=== PATIENT | female | born 1950 | race Caucasian/White ===

== ENCOUNTER 2020-03-21 08:23 | Outpatient (REF) | payer OTHER, SELFPAY ==
[2020-03-21 09:48] LABS: Alanine Aminotransferase 16 U/L (0-31); Albumin Level 4.3 g/dL (3.5-5.0); Alkaline Phosphatase 45 U/L (39-117); Anion Gap 12 (12-20); Aspartate Amino Transferase 31 U/L (5-31); Bilirubin Total 0.5 mg/dL (0.0-1.0); Blood Urea Nitrogen 16 mg/dL (9-16); Calcium 9.5 mg/dL (8.4-10.2); Carbon Dioxide 32 mmol/L (22-29); Chloride 100 mmol/L (96-108); Cholesterol 121 mg/dL; Estimated Glomerular Filt Rate 47; Glucose Fasting 135 mg/dL (60-99); HDL Cholesterol 38 mg/dL; LDL Cholesterol Calculated 66 mg/dl; Potassium 3.4 mmol/l (3.3-5.1); Sodium 141 mmol/L (135-145); Total Protein 7.4 g/dL (6.5-8.0); Triglycerides 88 mg/dL
[2020-03-21 11:06] LABS: Creatinine Urine 171.76 mg/dL; Microalbum/Creatinine Ratio Ur 13.9 ug/mg cr
== END 2020-03-21 08:24 | disposition home or self-care (01) ==
LOC: HO.LAB 08:23
PROVIDERS: PCP Internal Medicine; Visit Provider Internal Medicine
DX: E11.9 Type 2 diabetes mellitus without complications (principal); E78.00 Pure hypercholesterolemia, unspecified
CPT/HCPCS: 36415; 80053; 80061; 82043

== ENCOUNTER → 2020-04-04 09:16 | Outpatient (BNVA) | payer OTHER, SELFPAY | PROVIDERS: PCP Internal Medicine; Referring Provider Internal Medicine; Visit Provider Student in an Organized Health Care Education/Training Program | DX: M81.0 Age-related osteoporosis without current pathological fracture (principal); M89.49 Other hypertrophic osteoarthropathy, multiple sites | CPT/HCPCS: 96372; 99213 ==

== ENCOUNTER 2020-06-09 09:59 | Outpatient (REF) | payer OTHER, SELFPAY ==
[2020-06-10 09:46] LABS: BV Int Neg Control Negative (Negative); BV Int Pos Control Positive (Positive)
== END 2020-06-09 10:00 | disposition home or self-care (01) ==
LOC: HO.LAB 09:59
PROVIDERS: PCP Internal Medicine; Visit Provider Advanced Practice Midwife
DX: N89.8 Other specified noninflammatory disorders of vagina (principal); R21 Rash and other nonspecific skin eruption
CPT/HCPCS: 87480; 87510; 87660; 99212

== ENCOUNTER 2020-07-17 09:08 | Outpatient (REF) | payer OTHER, SELFPAY | END 2020-07-17 09:09 | disposition home or self-care (01) | LOC: HO.LAB 09:08 | PROVIDERS: PCP Internal Medicine; Visit Provider Internal Medicine | DX: Z20.822 Contact with and (suspected) exposure to COVID-19 (principal) | CPT/HCPCS: 36415; C9803; U0003 ==

== ENCOUNTER 2020-08-21 10:39 | Outpatient (REF) | payer MEDICARE, SELFPAY | END 2020-08-21 10:40 | disposition home or self-care (01) | LOC: HO.LAB 10:39 | PROVIDERS: Visit Provider Internal Medicine | DX: Z20.822 Contact with and (suspected) exposure to COVID-19 (principal) | CPT/HCPCS: 36415; C9803; U0003; U0005 ==

== ENCOUNTER → 2020-08-27 13:24 | Outpatient (BNVA) | payer MEDICARE, SELFPAY | PROVIDERS: PCP Internal Medicine; Visit Provider Nurse Practitioner | DX: K29.30 Chronic superficial gastritis without bleeding (principal); K21.9 Gastro-esophageal reflux disease without esophagitis; R19.7 Diarrhea, unspecified | CPT/HCPCS: Q3014 ==

== ENCOUNTER 2020-09-09 11:11 | Outpatient (REF) | payer MEDICARE, SELFPAY | END 2020-09-09 11:12 | disposition home or self-care (01) | LOC: HO.LAB 11:11 | PROVIDERS: Visit Provider Internal Medicine | DX: Z20.822 Contact with and (suspected) exposure to COVID-19 (principal) | CPT/HCPCS: 36415; C9803; U0003; U0005 ==

== ENCOUNTER → 2020-09-17 10:56 | Outpatient (BNVA) | payer MEDICARE, SELFPAY | PROVIDERS: PCP Internal Medicine; Visit Provider Nurse Practitioner | DX: R10.9 Unspecified abdominal pain (principal); R11.2 Nausea with vomiting, unspecified; K29.30 Chronic superficial gastritis without bleeding; K59.00 Constipation, unspecified; K21.9 Gastro-esophageal reflux disease without esophagitis | CPT/HCPCS: Q3014 ==

== ENCOUNTER 2020-10-01 09:13 | Outpatient (REF) | payer MEDICARE, SELFPAY ==
[2020-10-01 11:17] LABS: Alanine Aminotransferase 9 U/L (0-31); Alkaline Phosphatase 39 U/L (39-117); Anion Gap 10 (12-20); Aspartate Amino Transferase 27 U/L (5-31); Bilirubin Total 0.4 mg/dL (0.0-1.0); Blood Urea Nitrogen 13 mg/dL (9-16); Calcium 9.1 mg/dL (8.4-10.2); Carbon Dioxide 26 mmol/L (22-29); Chloride 108 mmol/L (96-108); Cholesterol 129 mg/dL; Estimated Glomerular Filt Rate > 60; Glucose Fasting 174 mg/dL (60-99); HDL Cholesterol 38 mg/dL; LDL Cholesterol Calculated 70 mg/dl; Sodium 140 mmol/L (135-145); Total Protein 6.8 g/dL (6.5-8.0); Triglycerides 107 mg/dL
[2020-10-01 12:25] LABS: Creatinine Urine 48.12 mg/dL; Microalbum/Creatinine Ratio Ur 49.8 ug/mg cr
[2020-10-02 09:57] LABS: NT-proBNP 186 pg/mL
[2020-10-04 14:22] LABS: Vitamin D 25-OH, D2 <4 ng/mL; Vitamin D 25-OH, D3 37 ng/mL; Vitamin D 25-OH, Total 37 ng/mL (30-100)
== END 2020-10-01 09:14 | disposition home or self-care (01) ==
LOC: HO.LAB 09:13
PROVIDERS: PCP Internal Medicine; Visit Provider Student in an Organized Health Care Education/Training Program
DX: M81.0 Age-related osteoporosis without current pathological fracture (principal); R60.0 Localized edema; E78.5 Hyperlipidemia, unspecified; E11.9 Type 2 diabetes mellitus without complications
CPT/HCPCS: 36415; 80053; 80061; 82043; 82306; 83880; 96402; 99212

== ENCOUNTER → 2020-10-17 12:57 | Outpatient (BNVA) | payer MEDICARE, SELFPAY | PROVIDERS: PCP Internal Medicine; Visit Provider Nurse Practitioner | DX: Z13.89 Encounter for screening for other disorder (principal) | CPT/HCPCS: Q3014 ==

== ENCOUNTER → 2020-10-21 14:29 | Outpatient (REF) | payer MEDICARE, SELFPAY ==
--- NOTE | 2020-10-21 14:33 | CA_ITS ---
Transthoracic Echocardiogram Patient (Last, First, Middle): Anat Trivedi, Gender: Female Date of : 1950 Age: 70 Procedure Date: 10/21/2020 Procedure Type: Transthoracic Echocardiogram Location: OP Height: 157.48 cm Weight: 56.7 kg BSA: 1.57 m2 Heart Rate: bpm BP: 116 / 74 mmHg Sleep Medicine Physician: Referring MD: Nita Jiménez MD Symptoms: R60.0 - Localized edema Study Quality: Good ECG Rhythm: Sinus Conclusions: - The left ventricular systolic function is normal. The visually estimated ejection fraction is between 60-65%. - There is mild mitral valve regurgitation. - There is mild to moderate tricuspid valve regurgitation. - Non specific liver density 2.3 x 2.4cm. Texture similar to rest of liver. Consider dedicated ultrasound. Findings Left Ventricle Normal left ventricular cavity size. There is normal left ventricular wall thickness. The left ventricular systolic function is normal. The visually estimated ejection fraction is between 60-65%. There is no evidence of regional wall motion abnormalities. Diastolic function is normal for age. Right Ventricle Normal right ventricular cavity size and systolic function. Atria The left atrium is normal in size. The right atrium is normal in size. Aortic Valve There is a normal trileaflet aortic valve. There is no aortic valve stenosis. There is no aortic valve regurgitation. Mitral Valve The mitral valve appears normal. There is mild mitral valve regurgitation. There is no mitral valve stenosis. Pulmonic Valve The pulmonic valve was not well visualized. Tricuspid Valve Normal tricuspid valve structure. There is mild to moderate tricuspid valve regurgitation. The right ventricular systolic pressure is 36 mmHg. Mild pulmonary hypertension is present. Great Vessels The aortic annulus, sinuses of valsalva, and asc aorta are normal in size. Venous The inferior vena cava is normal in size and collapses greater than 50% with inspiration. Pericardium/Pleural There is no evidence of pericardial effusion. Non specific liver density 2.3 x 2.4cm. Texture similar to rest of liver. Consider dedicated ultrasound. Prior Study Comparison Changes noted compared to prior study dated: 03/05/2019. See comments on liver. Measurements 2D Linear Measurements RVIDd: 3.34 RVIDd Index: 2.13 IVSd: 0.83 0.6-0.9/0.6-1.0 cm LVIDd: 3.65 3.9-5.3/4.2-5.9 cm LVIDd Index: 2.32 2.4-3.2/2.2-3.1 cm/m2 LVIDs: 2.53 2.0-3.6 cm LVPWd: 0.89 0.7-1.1 cm Ao Root: 2.50 2.1-3.5 cm LA Diam: 3.30 2.7-3.8/3.0-4.0 cm LAIDs Index: 2.10 1.5-2.3 cm/m2 LV Mass: 110.75 67-162/88-224 g LV Mass Index: 70.54 43-95/49-115 g/m2 LVOT Diam: 2.00 3.0+(-)1.3 cm 2D Systolic Function EF 4C: 76.80 >55% EF 2C: 78.30 >55% EF BiP: 76.50 >55% Mitral Valve MV Pk E: 1.05 MV PK A: 1.12 MV Decel Time: 204.00 E/A: 0.90 E'Lateral: 12.50 E'Medial: 8.22 E/E' Med: 12.80 E/E' Lat: 8.40 MR Vol - PW Dopp: 13.02 MR VTI: 1.86 MR ERO: 7.00 MR Alias Moom: 0.38 MR RAD: 0.40 Aortic Valve AoV Pk Momo: 1.62 AoV Mn Momo: 1.08 AoV VTI: 0.32 AoV Pk Grad: 10.00 Aov Mn Grad: 6.00 JOHN PAUL Cont.VTI: 2.45 LVOT LVOT Pk Momo: 1.24 LVOT Mn Momo: 0.83 LVOT VTI: 0.25 LVOT Pk Grad: 6.00 LVOT Mn Grad: 3.00 LVOT Diam: 2.00 LVOT Area: 3.14 Diastolic Function MV Pk E: 1.05 MV Pk A: 1.12 E/A: 0.90 E'Medial: 8.22 E/E' Med: 12.80 E' Laterial: 12.50 E/E' Lat: 8.40 Tricuspid Valve TR Pk Momo: 3.00 TR Pk Grad: 36.00 RVSP: 36.00 Great Vessels Aorta Ao Root-2D: 2.50 2.0-3.7 cm Ao Asc: 2.80 2.1-3.4 cm Ao Arch: 2.70 Updated in Other Vendor System with Status of Final Quentin Garcia MD electronically signed on 10/23/2020 2:54:24 PM with status of Final
== END ==
LOC: HO.CARD 14:29
PROVIDERS: PCP Internal Medicine; Visit Provider Internal Medicine
DX: R60.0 Localized edema (principal)
CPT/HCPCS: 93306

== ENCOUNTER → 2020-12-02 09:59 | Outpatient (BNVA) | payer MEDICARE, SELFPAY | PROVIDERS: Visit Provider Nurse Practitioner | CPT/HCPCS: Q3014 ==

== ENCOUNTER 2020-12-09 10:35 | Outpatient (REF) | payer MEDICARE, SELFPAY ==
[2020-12-09 12:27] LABS: Alanine Aminotransferase 7 U/L (0-31); Albumin Level 4.4 g/dL (3.5-5.0); Alkaline Phosphatase 45 U/L (39-117); Anion Gap 10 (12-20); Aspartate Amino Transferase 37 U/L (5-31); Bilirubin Total 0.3 mg/dL (0.0-1.0); Blood Urea Nitrogen 19 mg/dL (9-16); Calcium 9.8 mg/dL (8.4-10.2); Carbon Dioxide 33 mmol/L (22-29); Chloride 100 mmol/L (96-108); Estimated Glomerular Filt Rate 54; Glucose Random 152 mg/dL (60-115); Potassium 3.9 mmol/L (3.3-5.1); Sodium 139 mmol/L (135-145); Total Protein 7.5 g/dL (6.5-8.0)
[2020-12-09 12:29] LABS: Cholesterol 127 mg/dL; HDL Cholesterol 48 mg/dL; LDL Cholesterol Calculated 55 mg/dl; Triglycerides 123 mg/dL
== END 2020-12-09 10:36 | disposition home or self-care (01) ==
LOC: HO.LAB 10:35
PROVIDERS: PCP Internal Medicine; Visit Provider Nurse Practitioner
DX: M81.0 Age-related osteoporosis without current pathological fracture (principal); E11.9 Type 2 diabetes mellitus without complications; E78.5 Hyperlipidemia, unspecified
CPT/HCPCS: 36415; 80053; 80061

== ENCOUNTER 2020-12-11 07:36 | Outpatient (REF) | payer MEDICARE, SELFPAY ==
--- NOTE | ~2020-12-11 | CT_ITS ---
EXAMINATION: CT ABDOMEN AND PELVIS WITH CONTRAST CLINICAL INFORMATION: Nausea and vomiting COMPARISON: Previous abdominal ultrasound December 2016 TECHNIQUE: Multidetector volumetric images were obtained from the superior aspect of the liver through the pubic symphysis following administration 85 mL of Omnipaque 350 intravenous contrast. Sagittal and coronal reformatted images were obtained on the technologist's workstation. Oral contrast: Yes This CT examination was performed using dose optimization techniques as appropriate, variously including the following: *Automated exposure control *Adjustment of mA and/or kV according to patient size (this includes techniques or standardized protocols for targeted exams where dose is matched to indication/reason for exam; i.e. extremities or head) *Use of iterative reconstruction technique DLP: 333 mGy-cm FINDINGS: LUNG BASES: The visualized lung bases are unremarkable. LIVER, GALLBLADDER, AND BILIARY TREE: The liver is normal in size, shape, and attenuation. No focal hepatic lesion or biliary ductal dilatation is present. The gallbladder is unremarkable with no evidence of radiopaque gallstones, gallbladder wall thickening, or obvious pericholecystic inflammatory changes. PANCREAS: Unremarkable. SPLEEN: Unremarkable. ADRENAL GLANDS: Unremarkable. KIDNEYS AND URETERS: There is question of a low-attenuation in the cortex of the lower pole the left kidney. This area measures approximately 1 cm. Possible infection/pyelonephritis should be considered. Differential would include infarct and mass. Right kidney is normal appearing. BLADDER: Unremarkable. GASTROINTESTINAL TRACT: The small and large bowel are unremarkable. The appendix is unremarkable. The stomach is slightly distended and filled with oral contrast and food debris. ABDOMINAL WALL: No significant hernia is appreciated. LYMPH NODES: Normal. VASCULAR: Unremarkable. PELVIC VISCERA: Unremarkable. OSSEOUS STRUCTURES: Unremarkable. CT/CT abdomen pelvis w con IMPRESSION: Question 1 cm low-attenuation area in the lower pole of the left kidney. Possible infection/pyelonephritis should be considered. Differential would include infarct and mass. Correlation with urinalysis and urine culture and imaging follow-up recommended.
[2020-12-11] MEDS: iohexoL 350 MG/ML 100 ML INFUS..BTL IV (10:34)
== END 2020-12-11 07:37 | disposition home or self-care (01) ==
LOC: HO.CT 07:36
PROVIDERS: Visit Provider Nurse Practitioner
DX: R10.9 Unspecified abdominal pain (principal); R11.2 Nausea with vomiting, unspecified; R63.4 Abnormal weight loss; R60.0 Localized edema
CPT/HCPCS: 74177; Q9967

== ENCOUNTER 2020-12-16 08:01 | Outpatient (REF) | payer MEDICARE, SELFPAY ==
[2020-12-16 08:44] LABS: MANUAL DIFF FLAG NO
[2020-12-16 08:47] LABS: Basophils Absolute Auto 0.1 X10*3/uL (0.0-0.2); Basophils Percent Auto 0.6 % (0-2); Eosinophils Absolute Auto 0.7 X10*3/uL (0.0-0.4); Eosinophils Percent Auto 9.1 % (0-4); Hematocrit 39.3 % (37-47); Hemoglobin 12.7 g/dl (12.0-16.0); Imm Gran Abs Auto 0.02 X10*3/uL (0.00-0.03); Imm Gran Pct Auto 0.2 % (0.0-0.4); Lymphocytes Absolute Auto 1.9 X10*3/uL (1.2-4.9); Lymphocytes Percent Auto 23.5 % (20-40); Mean Corpuscular HGB Conc 32.3 g/dl (31.0-35.0); Mean Corpuscular Hemoglobin 27.7 pg (27.0-33.0); Mean Corpuscular Volume 85.8 fL (80-98); Mean Platelet Volume 11.9 fL (9.4-12.3); Monocytes Absolute Auto 0.4 X10*3/uL (0.1-1.2); Monocytes Percent Auto 5.2 % (2-11); Neutrophils Absolute Auto 4.9 X10*3/uL (2.0-8.3); Neutrophils Percent Auto 61.4 % (45-73); Platelet Count 203 X10*3/uL (160-400); Red Blood Count 4.58 X10*6/uL (4.20-5.50); Red Cell Distribution Width 13.6 % (11.0-16.0)
[2020-12-16 09:03] LABS: Glucose Urine UA NEG (NEG); Leukocyte Esterase Urine 1+ (NEG); Nitrite Urine POS (NEG); UACC Culture Trigger YES; Urine Blood NEG (NEG); Urine Ketones NEG (NEG); Urine Protein NEG (NEG-TRACE)
[2020-12-16 09:05] LABS: Appearance Urine HAZY; Color Urine YELLOW
[2020-12-16 09:13] LABS: Bacteria Urine 3+ /LPF; RBC Urine 0 /HPF (0); Squamous Epithelial Cell Urine 1+ /LPF
[2020-12-16 09:18] LABS: Blood Urea Nitrogen 22 mg/dL (9-16); Estimated Glomerular Filt Rate 52
== END 2020-12-16 08:02 | disposition home or self-care (01) ==
LOC: HO.LAB 08:01
PROVIDERS: PCP Internal Medicine; Visit Provider Nurse Practitioner
DX: R10.9 Unspecified abdominal pain (principal); R11.2 Nausea with vomiting, unspecified; R60.0 Localized edema; R63.4 Abnormal weight loss
CPT/HCPCS: 36415; 81001; 81003; 82565; 84520; 85025; 87086; 87088; 87186

== ENCOUNTER 2020-12-24 08:01 | Outpatient (REF) | payer MEDICARE, SELFPAY ==
[2020-12-24 09:27] LABS: Alanine Aminotransferase 25 U/L (0-31); Albumin Level 4.3 g/dL (3.5-5.0); Alkaline Phosphatase 36 U/L (39-117); Anion Gap 16 (12-20); Aspartate Amino Transferase 33 U/L (5-31); Bilirubin Total 0.6 mg/dL (0.0-1.0); Blood Urea Nitrogen 18 mg/dL (9-16); Calcium 9.8 mg/dL (8.4-10.2); Carbon Dioxide 29 mmol/L (22-29); Chloride 102 mmol/L (96-108); Estimated Glomerular Filt Rate 47; Glucose Fasting 133 mg/dL (60-99); Potassium 3.6 mmol/L (3.3-5.1); Sodium 143 mmol/L (135-145); Total Protein 7.5 g/dL (6.5-8.0)
== END 2020-12-24 08:02 | disposition home or self-care (01) ==
LOC: HO.LAB 08:01
PROVIDERS: PCP Internal Medicine; Visit Provider Internal Medicine
DX: E11.9 Type 2 diabetes mellitus without complications (principal)
CPT/HCPCS: 36415; 80053

== ENCOUNTER → 2021-01-01 12:49 | Outpatient (BNVA) | payer MEDICARE, SELFPAY | PROVIDERS: PCP Internal Medicine; Referring Provider Internal Medicine; Visit Provider Nurse Practitioner | DX: R63.4 Abnormal weight loss (principal); R10.9 Unspecified abdominal pain; R11.2 Nausea with vomiting, unspecified; K29.30 Chronic superficial gastritis without bleeding; R19.7 Diarrhea, unspecified; G20 Parkinson's disease; K59.00 Constipation, unspecified; K21.9 Gastro-esophageal reflux disease without esophagitis; N12 Tubulo-interstitial nephritis, not specified as acute or chronic; K31.84 Gastroparesis | CPT/HCPCS: 99212 ==

== ENCOUNTER 2021-01-06 11:46 | Outpatient (REF) | payer MEDICARE, SELFPAY ==
[2021-01-06 12:53] LABS: Glucose Urine UA NEG (NEG); Leukocyte Esterase Urine NEG (NEG); Nitrite Urine NEG (NEG); Specific Gravity - Urine 1.015 (1.005-1.025); Urine Blood NEG (NEG); Urine Ketones NEG (NEG); Urine Protein NEG (NEG-TRACE)
[2021-01-06 12:59] LABS: Appearance Urine CLEAR; Color Urine YELLOW
[2021-01-06 13:11] LABS: Creatinine Urine 137.96 mg/dL; Microalbum/Creatinine Ratio Ur 10.1 ug/mg cr
[2021-01-06 13:15] LABS: Cholesterol 125 mg/dL; HDL Cholesterol 41 mg/dL; LDL Cholesterol Calculated 69 mg/dl; Triglycerides 76 mg/dL
[2021-01-10 13:37] LABS: Vitamin D 25-OH, D2 <4 ng/mL; Vitamin D 25-OH, D3 49 ng/mL; Vitamin D 25-OH, Total 49 ng/mL (30-100)
== END 2021-01-06 11:47 | disposition home or self-care (01) ==
LOC: HO.LAB 11:46
PROVIDERS: PCP Internal Medicine; Visit Provider Nurse Practitioner
DX: E55.9 Vitamin D deficiency, unspecified (principal); N12 Tubulo-interstitial nephritis, not specified as acute or chronic; E11.9 Type 2 diabetes mellitus without complications; E78.5 Hyperlipidemia, unspecified
CPT/HCPCS: 36415; 80061; 81003; 82043; 82306

== ENCOUNTER 2021-01-22 16:25 | Outpatient (REF) | payer MEDICARE, SELFPAY ==
--- NOTE | ~2021-01-22 | MR_ITS ---
EXAMINATION: BRAIN MRI WITHOUT CONTRAST CLINICAL INFORMATION: Tremor. COMPARISON: Brain MRI 02/15/2019. TECHNIQUE: Multiplanar MR imaging of the brain was performed without contrast FINDINGS: There are scattered nonspecific foci of T2 FLAIR signal hyperintensity within the periventricular white matter that most likely represent a chronic manifestation of small vessel ischemia. No acute territorial infarct. No pathological magnetic susceptibility artifact. Intracranial vascular flow voids are maintained. There is no intracranial mass effect or midline shift. No abnormal extra-axial collection. Lateral and third ventricles are normal. No hydrocephalus. Midline structures including the cervicomedullary junction are normal. No acute bone marrow signal changes. There is no mastoid middle ear effusion. No active paranasal sinus disease. Globes and orbits are symmetric. MR/MR head/brain wo con IMPRESSION: There are scattered chronic small vessel ischemic changes within the periventricular white matter. Otherwise unremarkable examination. No evidence of acute territorial infarct or hemorrhage.
== END 2021-01-22 16:26 | disposition home or self-care (01) ==
LOC: HO.MRI 16:25
PROVIDERS: PCP Internal Medicine; Visit Provider Internal Medicine
DX: R25.1 Tremor, unspecified (principal)
CPT/HCPCS: 70551

== ENCOUNTER 2021-02-20 12:58 | Outpatient (REF) | payer MEDICARE, SELFPAY ==
--- NOTE | ~2021-02-20 | MM_ITS ---
EXAMINATION: BONE DENSITOMETRY CLINICAL INDICATION: Age-related osteoporosis without current pathological fracture. COMPARISON: Previous BD dated 10/17/2018 and baseline BD dated 01/25/2007. TECHNIQUE: Using a [employer] DXA System (software version: 13.1) manufactured by [employer], dual-energy x-ray absorptiometry was performed of the lumbar spine and left hip. The images are of good technical quality. Summary results are attached. FINDINGS: AP SPINE L1-L4: Current: BMD 0.804 g/cm2, Z-score -1.0, T-score -3.1, osteoporosis, 0.5% decrease from previous, 8.5% decrease from baseline (<5% change is not significant). Prior: BMD 0.808 g/cm2. Baseline: BMD 0.879 g/cm2. LEFT FEMUR, NECK: Current: BMD 0.696 g/cm2, Z-score -0.4, T-score -2.5, osteoporosis. Prior: BMD 0.672 g/cm2. Baseline: BMD 0.727 g/cm2. LEFT FEMUR, TOTAL: Current: BMD 0.740 g/cm2, Z-score -0.2, T-score -2.1, osteopenia, 0.3% decrease from previous, 7.0% decrease from baseline (<5% change is not significant). Prior: BMD 0.742 g/cm2. Baseline: BMD 0.796 g/cm2. IDENTIFIED RISK FACTORS: Osteoporosis, history of fracture (adult). Early menopause, secondary osteoporosis, thiazide. HISTORY OF FRACTURE: Elbow. MEDICATIONS: Calcium supplements or multivitamin, vitamin D, Prolia. MM/XR DEXA axial skeleton IMPRESSION: 1. DIAGNOSIS: Osteoporosis based on the lowest T-score value of -3.1 in the lumbar spine applying World Health Organization criteria. 2. 10-YEAR FRACTURE RISK PREDICTION, FRAX: Major osteoporotic fracture (clinical spine, forearm, hip or shoulder) 12.6%. Hip fracture 3.3%. 3. Treatment Recommendations: NOF guidelines recommend consideration for treatment in postmenopausal women and men age 50 and older presenting with the following: -A hip or vertebral (clinical or morphometric) fracture. -T-score less than or equal to -2.5 at the femoral neck or spine after appropriate evaluation to exclude secondary causes. -Low bone mass at the hip or spine and a 10-year fracture probability by FRAX of greater than or equal to 3% for hip fracture or greater than or equal to 20% for major osteoporotic fracture based on the [place] adapted WHO algorithm. 4. Other Recommendations: All treatment decisions require clinical judgment and consideration of individual patient factors, including patient preferences, comorbidities, previous drug use, risk factors not captured in the FRAX model (e.g. frailty, falls, vitamin D deficiency, increased bone turnover, interval significant decline in bone density) and possible under or overestimation of fracture risk by FRAX. Additional medical evaluation for secondary cause of low bone mineral density may be appropriate. FUTURE SCAN RECOMMENDATION: People with diagnosed cases of osteoporosis or at high risk for fracture should have regular bone mineral density tests. For patients eligible for Medicare, routine testing is allowed once every 2 years. The testing frequency can be increased to one year for patients who have rapidly progressing disease, those who are receiving or discontinuing medical therapy to restore bone mass, or have additional risk factors.
--- NOTE | ~2021-02-20 | MM_ITS ---
EXAMINATION: MM SCREENING DIGITAL BREAST TOMOSYNTHESIS, BILATERAL CLINICAL INFORMATION: Screening. Asymptomatic. The lifetime risk of breast cancer based on the Tyrer-Cuzick Model is 4%. COMPARISON: Mammography: 12/04/2019, 12/28/2018, 12/26/2017; targeted right breast ultrasound 12/04/2019 TECHNIQUE: Digital breast tomosynthesis is performed in both the craniocaudal and mediolateral oblique views along with computer-aided detection (CAD). Synthesized 2D images are generated from the tomosynthesis. FINDINGS: There are scattered areas of fibroglandular density (ACR BI-RADS breast composition Category b). There are no significant masses, abnormal calcifications, or other abnormalities. Parenchymal pattern is similar to prior studies. There is no developing density. The axilla and skin contours are unremarkable. Biopsy clip marker again noted central mid 12:00 right breast. MM/MM tomosynthesis screening BI IMPRESSION: No mammographic evidence of malignancy. ASSESSMENT: BI-RADS 1: Negative RECOMMENDATION: Routine annual mammography screening. This patient's information was entered into a reminder system with a target due date for their next mammogram.
== END 2021-02-20 12:59 | disposition home or self-care (01) ==
LOC: HO.MAMMO 12:58
PROVIDERS: PCP Internal Medicine; Visit Provider Student in an Organized Health Care Education/Training Program
DX: Z12.31 Encounter for screening mammogram for malignant neoplasm of breast (principal); M81.0 Age-related osteoporosis without current pathological fracture; Z78.0 Asymptomatic menopausal state
CPT/HCPCS: 77063; 77067; 77080

== ENCOUNTER → 2021-03-06 08:34 | Outpatient (BNVA) | payer MEDICARE, SELFPAY | PROVIDERS: PCP Internal Medicine; Visit Provider Nurse Practitioner ==

== ENCOUNTER → 2021-04-02 10:15 | Outpatient (BNVA) | payer MEDICARE, SELFPAY | PROVIDERS: PCP Internal Medicine; Visit Provider Nurse Practitioner Family | DX: M81.0 Age-related osteoporosis without current pathological fracture (principal); M89.49 Other hypertrophic osteoarthropathy, multiple sites | CPT/HCPCS: 96372; 99212 ==

== ENCOUNTER 2021-04-14 08:21 | Outpatient (REF) | payer MEDICARE, SELFPAY ==
[2021-04-14 09:49] LABS: Alanine Aminotransferase 12 U/L (0-31); Albumin Level 4.2 g/dL (3.5-5.0); Alkaline Phosphatase 37 U/L (39-117); Anion Gap 13 (12-20); Aspartate Amino Transferase 27 U/L (5-31); Bilirubin Total 0.8 mg/dL (0.0-1.0); Blood Urea Nitrogen 13 mg/dL (9-16); Calcium 9.2 mg/dL (8.4-10.2); Carbon Dioxide 29 mmol/L (22-29); Chloride 103 mmol/L (96-108); Estimated Glomerular Filt Rate 53; Glucose Random 97 mg/dL (60-115); Sodium 141 mmol/L (135-145); Total Protein 7.3 g/dL (6.5-8.0)
[2021-04-21 14:31] LABS: Vitamin D 25-OH, D2 <4 ng/mL; Vitamin D 25-OH, D3 42 ng/mL; Vitamin D 25-OH, Total 42 ng/mL (30-100)
== END 2021-04-14 08:22 | disposition home or self-care (01) ==
LOC: HO.LAB 08:21
PROVIDERS: PCP Internal Medicine; Visit Provider Nurse Practitioner Family
DX: M81.0 Age-related osteoporosis without current pathological fracture (principal)
CPT/HCPCS: 36415; 80053; 82306

== ENCOUNTER 2021-09-29 09:11 | Outpatient (REF) | payer OTHER, SELFPAY ==
[2021-09-29 11:14] LABS: Alanine Aminotransferase 8 U/L (0-31); Albumin Level 4.2 g/dL (3.5-5.0); Alkaline Phosphatase 40 U/L (39-117); Anion Gap 15 (12-20); Aspartate Amino Transferase 26 U/L (5-31); Bilirubin Total 0.5 mg/dL (0.0-1.0); Blood Urea Nitrogen 15 mg/dL (9-16); Carbon Dioxide 28 mmol/L (22-29); Chloride 105 mmol/L (96-108); Estimated Glomerular Filt Rate 55; Glucose Random 113 mg/dL (60-115); Potassium 4.7 mmol/L (3.3-5.1); Sodium 143 mmol/L (135-145); Total Protein 7.4 g/dL (6.5-8.0)
[2021-09-29 11:34] LABS: Vitamin D 25-OH Total 47.9 ng/mL (>30)
== END 2021-09-29 09:12 | disposition home or self-care (01) ==
LOC: HO.LAB 09:11
PROVIDERS: PCP Internal Medicine; Visit Provider Nurse Practitioner Family
DX: M81.0 Age-related osteoporosis without current pathological fracture (principal)
CPT/HCPCS: 36415; 80053; 82306

== ENCOUNTER → 2021-11-17 10:55 | Outpatient (BNVA) | payer OTHER, SELFPAY | PROVIDERS: PCP Internal Medicine; Visit Provider Nurse Practitioner Family | DX: M81.0 Age-related osteoporosis without current pathological fracture (principal); M89.49 Other hypertrophic osteoarthropathy, multiple sites; R07.9 Chest pain, unspecified | CPT/HCPCS: 99212 ==

== ENCOUNTER 2021-11-18 09:18 | Emergency (ER) | payer OTHER, SELFPAY ==
--- NOTE | ~2021-11-18 | XR_ITS ---
EXAMINATION: XR CHEST CLINICAL INFORMATION: Chest pain. COMPARISON: None TECHNIQUE: Frontal view of the chest was obtained. FINDINGS: The lungs are clear. The cardiomediastinal silhouette is normal in size. There is no pleural effusion or pneumothorax. No acute osseous abnormality. XR/XR chest 1V IMPRESSION: No acute cardiopulmonary findings.
--- NOTE | 2021-11-18 09:33 | ECG_ITS ---
Test Reason : CP Blood Pressure : / mmHG Vent. Rate : 067 BPM Atrial Rate : 067 BPM P-R Int : 156 ms QRS Dur : 062 ms QT Int : 376 ms P-R-T Axes : 000 -25 -09 degrees QTc Int : 397 ms Poor data quality Normal sinus rhythm Cannot rule out Anterior infarct , age undetermined Abnormal ECG When compared with ECG of 25-JAN-2018 09:00, T wave amplitude has decreased in Anterolateral leads Referred By: Generic ED Physician Electronically Signed By:CHESTER GUTIERRES MD
[2021-11-18 09:44] VITALS: BP 140/52; PULSE 61; RESP 16; TEMP 36.9; O2SAT 98; BMI 24.2
[2021-11-18 09:56] LABS: MANUAL DIFF FLAG NO
[2021-11-18 09:57] LABS: Basophils Percent Auto 0.5 % (0-2); Eosinophils Absolute Auto 0.6 X10*3/uL (0.0-0.4); Eosinophils Percent Auto 9.7 % (0-4); Hematocrit 37.8 % (37.0-47.0); Hemoglobin 12.3 g/dl (12.0-16.0); Imm Gran Abs Auto 0.02 X10*3/uL (0.00-0.03); Imm Gran Pct Auto 0.3 % (0.0-0.4); Lymphocytes Absolute Auto 1.5 X10*3/uL (1.2-4.9); Lymphocytes Percent Auto 25.1 % (20-40); Mean Corpuscular HGB Conc 32.5 g/dl (31.0-35.0); Mean Corpuscular Hemoglobin 28.5 pg (27.0-33.0); Mean Corpuscular Volume 87.7 fL (80.0-98.0); Monocytes Absolute Auto 0.3 X10*3/uL (0.1-1.2); Monocytes Percent Auto 5.7 % (2-11); Neutrophils Absolute Auto 3.4 x10*3/uL (2.0-8.3); Neutrophils Percent Auto 58.7 % (45-73); Platelet Count 161 X10*3/uL (160-400); Red Blood Count 4.31 X10*6/uL (4.20-5.50); White Blood Count 5.8 X10*3/uL (4.8-10.8)
[2021-11-18 10:15] LABS: Anion Gap 12 (12-20); Blood Urea Nitrogen 16 mg/dL (9-16); Calcium 9.8 mg/dL (8.4-10.2); Carbon Dioxide 26 mmol/L (22-29); Chloride 106 mmol/L (96-108); Creatinine Clr Calc Pharmacy 37.3; Estimated Glomerular Filt Rate 50; Glucose Random 159 mg/dL (60-115); Potassium 4.3 mmol/L (3.3-5.1); Sodium 140 mmol/L (135-145)
[2021-11-18 10:20] LABS: Troponin-I High Sensitivity < 3.5 ng/L (<3.5-17.0)
[2021-11-18 13:12] VITALS: BP 150/76; PULSE 77; RESP 25; TEMP 37.1; O2SAT 96
--- NOTE | 2021-11-18 13:16 | ED_ITS ---
HPI - Chest Pain General Chief Complaint: Chest Pain Stated Complaint: chest pain Time Seen by Provider: 11/18/21 13:16 Source: patient Mode of arrival: ambulatory Limitations: no limitations History of Present Illness HPI narrative: chest pain last night. Stress test one year ago which was fine. has had multiple visits for chest pain which has been negative. patient had left sided chest pain that went to her jaw for 30 minutes last night. MD complaint: chest pain Onset (ago): hour(s) Timing of current episode: episodic Prior episodes: Yes Onset: during rest Pain location: left chest Pain radiation: left arm and neck Severity: mild Quality: tightness Related Data Home Medications Medication Instructions Recorded Confirmed acetaminophen 650 mg 650 mg PO Q8H 04/04/20 05/05/21 tablet,extended release cetirizine 10 mg tablet (Zyrtec) 10 mg PO DAILY PRN tab 04/04/20 05/05/21 Previous Rx's Medication Instructions Recorded calcium carbonate 500 mg-vitamin 1 tab PO .twice a day 90 Days #180 07/03/20 D3 15 mcg (600 unit) tablet tab blood sugar diagnostic (FreeStyle #50 ea 11/10/20 Test) hydrocortisone 1 % topical 1 appl TOPICAL BID PRN 30 Days 11/10/20 ointment (Anti-Itch #28.35 g (hydrocortisone)) metoclopramide HCl 5 mg tablet 5 mg PO QIDACHS 30 Days #120 tab 01/01/21 (Reglan) aspirin 81 mg tablet,delayed 81 mg PO DAILY #90 tab 01/07/21 release blood pressure monitor #1 ea 05/05/21 famotidine 40 mg tablet (Pepcid) 40 mg PO BID 30 Days #60 tab 09/11/21 metformin 500 mg tablet,extended 2,000 mg PO DAILY #360 tab 09/18/21 release 24 hr ezetimibe 10 mg tablet 10 mg PO DAILY 90 Days #90 tab 09/20/21 denosumab 60 mg/mL subcutaneous 60 mg SUBCUT [id number] #1 ml 09/24/21 syringe (Prolia) escitalopram oxalate 5 mg tablet 5 mg PO DAILY 90 Days #90 tab 09/24/21 carbidopa 25 mg-levodopa 100 mg 1 tab PO TID 30 Days #90 tab 10/30/21 tablet Allergies Allergy/AdvReac Type Severity Reaction Status Date / Time amlodipine Allergy Intermediate leg edema Verified 11/17/21 11:29 aspirin [ASPIRIN] Allergy Intermediate GERD Verified 11/17/21 11:29 gabapentin Allergy Intermediate rash Verified 11/17/21 11:29 lisinopril Allergy Intermediate angioedema Verified 11/17/21 11:29 naproxen [From NAPROSYN] Allergy Intermediate RASH/DIZZY Verified 11/17/21 11:29 omeprazole Allergy Intermediate tremors Verified 11/17/21 11:29 canagliflozin [Invokana] AdvReac Intermediate rash Verified 11/17/21 11:29 glipizide AdvReac Intermediate hypoglycemi Verified 11/17/21 11:29 a Review of Systems Constitutional: Constitutional: Reports no additional constitutional complaints Eyes: Eyes: Reports no additional eye complaints ENT: Denies dizziness Cardiovascular: Cardiovascular: Reports no additional cardiovascular complaints Respiratory: Respiratory: Reports as per HPI Gastrointestinal: Gastrointestinal: Reports no additional gastrointestinal com plaints Genitourinary: Genitourinary: Reports no additional female genitourinary complaints Musculoskeletal: Musculoskeletal: Reports no additional musculoskeletal complaints Integumentary/Breasts: Skin/Breast: Denies rash Neurologic: Reports system reviewed and no additional complaints, except as documented, Denies dizziness and Denies Sensory deficit (Neuro) Psychiatric: Psychiatric: Denies anxiety PMFSH Past Medical History Medical History Abdominal cramping Cataracts, bilateral Constipation Depression Diabetes mellitus Essential hypertension GERD (gastroesophageal reflux disease) Leg edema Osteoarthritis Osteoporosis Parkinsons Pure hypercholesterolemia Tremors of nervous system Vaginal pruritus Surgical History H/O colonoscopy Family History Family History Father Leukemia Mother Chronic mental illness Alzheimers disease Sister Breast cancer Sister Leukemia Sister Esophageal cancer Maternal Grandmother Stomach cancer Family/Other Chronic mental illness Maternal Grandfather Myocardial infarction Sister Alzheimers disease Social History Social History Household Members: None Housing: Apartment Alcohol intake: never Patient Tobacco Use Status: Never used Tobacco e-Cigarette/Vaping Use: Never Used Second Hand Smoke Exposure: No Advance Directives: Yes Advance Directives on File: Yes Advance Directives Date on File: 09/23/20 service: No Current occupational status: disabled Physical Exam Vital Signs: Vital Signs: Last Vital Signs Temp 98.7 F 11/18/21 13:12 Pulse 77 11/18/21 13:12 Resp 25 H 11/18/21 13:12 BP 150/76 H 11/18/21 13:12 Pulse Ox 96 11/18/21 13:12 BMI result Body Mass Index 24.2 Const: Other: parkinsons tremor General: healthy appearing Nutritional Appearance: average body habitus Orientation/consciousness: oriented to person and patient oriented x3 Limitations: no limitations HEENT: Head: Yes normal to inspection Ears: external ears normal General nose exam: Normal external nose present Mouth: Normal oral and palatal mucosa present and oropharynx normal Throat: Yes posterior oropharynx normal Eyes: General: appearance normal, both eyes and all related structures Neck: Other: supple Neck: Yes normal visual inspection Chest: Chest palpation & inspection: normal inspection of the chest Resp: Auscultation: clear to auscultation bilaterally Cardio: Jugular venous distension: no JVD Rate: regular rate Rhythm: regular rhythm Heart sounds: S1 normal heart sound present and S2 normal heart sound present GI: Inspection: Yes normal to inspection Palpation (GI): Soft to palpation, nontender and No hepatosplenomegaly present Auscultation: normal bowel sounds : General: Yes no CVA tenderness Back/Spine/Pelvis: Back: no CVA tenderness Skin: General skin exam: no rashes or lesions noted Neuro: Other: parkinsonian tremor General: oriented to person and patient oriented x3 Cranial nerves: Yes CN's II-XII intact bilaterally Motor exam (neuro): 5/5 motor strength present throughout Sensory Exam: No Sensory deficit (Neuro) Extrem: General: Yes normal to inspection Psych: Appearance: grossly normal Course Reevaluation(s) Reevaluation #1: no evidence of cardiac ischemia will dc home Time: 15:11 MDM - Chest Pain Lab Data Result diagrams: 11/18/21 09:49 11/18/21 09:49 Labs: Lab Results 11/18/21 11/18/21 11/18/21 Range/Units 09:49 09:49 09:49 WBC 5.8 (4.8-10.8) X10*3/uL RBC 4.31 (4.20-5.50) X10*6/uL Hgb 12.3 (12.0-16.0) g/dl Hct 37.8 (37.0-47.0) % MCV 87.7 (80.0-98.0) fL MCH 28.5 (27.0-33.0) pg MCHC 32.5 (31.0-35.0) g/dl RDW 14.0 (11.0-16.0) % Plt Count 161 (160-400) X10*3/uL MPV 12.0 (9.4-12.3) fL Immature Gran % (Auto) 0.3 (0.0-0.4) % Neut % (Auto) 58.7 (45-73) % Lymph % (Auto) 25.1 (20-40) % Jennings % (Auto) 5.7 (2-11) % Eos % (Auto) 9.7 H (0-4) % Baso % (Auto) 0.5 (0-2) % Lymph # (Auto) 1.5 (1.2-4.9) X10*3/uL Jennings # (Auto) 0.3 (0.1-1.2) X10*3/uL Eos # (Auto) 0.6 H (0.0-0.4) X10*3/uL Baso # (Auto) 0.0 (0.0-0.2) X10*3/uL Abs Immat Gran (auto) 0.02 (0.00-0.03) X10*3/uL Absolute Neuts (auto) 3.4 (2.0-8.3) x10*3/uL Absolute Nucleated RBC 0.000 (0.0-0.012) X10*3/uL Nucleated RBC % (auto) 0.0 (0.0-0.2) /100WBC Sodium 140 (135-145) mmol/L Potassium 4.3 (3.3-5.1) mmol/L Chloride 106 (96-108) mmol/L Carbon Dioxide 26 (22-29) mmol/L Anion Gap 12 (12-20) BUN 16 (9-16) mg/dL Creatinine 1.07 (0.5-1.4) mg/dL Estim Creat Clear Calc 37.3 Estimated GFR 50 Random Glucose 159 H (60-115) mg/dL Calcium 9.8 (8.4-10.2) mg/dL Troponin I High Sens < 3.5 (<3.5-17.0) ng/L Urine Color Urine Appearance Urine pH (5.0-8.0) Ur Specific [place] (1.005-1.025) Urine Protein (NEG-TRACE) MG/DL Urine Glucose (UA) (NEG) MG/DL Urine Ketones (NEG) MG/DL Urine Blood (NEG) Urine Nitrite (NEG) Ur Leukocyte Esterase (NEG) Urine RBC (0) /HPF Urine WBC (0-4) /HPF Ur Squamous Epith Cells /LPF Ur Renal Epithelial Cell /LPF Urine Bacteria /LPF 11/18/21 11/18/21 Range/Units 13:36 14:02 WBC (4.8-10.8) X10*3/uL RBC (4.20-5.50) X10*6/uL Hgb (12.0-16.0) g/dl Hct (37.0-47.0) % MCV (80.0-98.0) fL MCH (27.0-33.0) pg MCHC (31.0-35.0) g/dl RDW (11.0-16.0) % Plt Count (160-400) X10*3/uL MPV (9.4-12.3) fL Immature Gran % (Auto) (0.0-0.4) % Neut % (Auto) (45-73) % Lymph % (Auto) (20-40) % Jennings % (Auto) (2-11) % Eos % (Auto) (0-4) % Baso % (Auto) (0-2) % Lymph # (Auto) (1.2-4.9) X10*3/uL Jennings # (Auto) (0.1-1.2) X10*3/uL Eos # (Auto) (0.0-0.4) X10*3/uL Baso # (Auto) (0.0-0.2) X10*3/uL Abs Immat Gran (auto) (0.00-0.03) X10*3/uL Absolute Neuts (auto) (2.0-8.3) x10*3/uL Absolute Nucleated RBC (0.0-0.012) X10*3/uL Nucleated RBC % (auto) (0.0-0.2) /100WBC Sodium (135-145) mmol/L Potassium (3.3-5.1) mmol/L Chloride (96-108) mmol/L Carbon Dioxide (22-29) mmol/L Anion Gap (12-20) BUN (9-16) mg/dL Creatinine (0.5-1.4) mg/dL Estim Creat Clear Calc Estimated GFR Random Glucose (60-115) mg/dL Calcium (8.4-10.2) mg/dL Troponin I High Sens < 3.5 (<3.5-17.0) ng/L Urine Color YELLOW Urine Appearance HAZY Urine pH 6.0 (5.0-8.0) Ur Specific [place] 1.020 (1.005-1.025) Urine Protein NEG (NEG-TRACE) MG/DL Urine Glucose (UA) NEG (NEG) MG/DL Urine Ketones NEG (NEG) MG/DL Urine Blood NEG (NEG) Urine Nitrite NEG (NEG) Ur Leukocyte Esterase 1+ H (NEG) Urine RBC 1-4 (0) /HPF Urine WBC 5-9 H (0-4) /HPF Ur Squamous Epith Cells NONE /LPF Ur Renal Epithelial Cell TRACE /LPF Urine Bacteria NONE /LPF Imaging Data Chest x-ray: Radiologist's impression: FINDINGS: The lungs are clear. The cardiomediastinal silhouette is normal in size. There is no pleural effusion or pneumothorax. No acute osseous abnormality. XR/XR chest 1V IMPRESSION: No acute cardiopulmonary findings. ECG Data ECG #1: Attestation: I personally reviewed and interpreted this ECG as follows: Interpretation: sinus 67, no st or twave changes Discharge Plan Discharge Clinical Impression: Chest pain Patient Disposition: Home, Self-Care Instructions: Chest Pain (ED) Prescriptions: No Action calcium carbonate-vitamin D3 500mg (1,250mg) -600 unit tablet 1 tab PO .twice a day 90 Days Qty: 180 3RF (DME) FreeStyle Test Strip See Rx Instructions .ROUTE .MEDSUPPLY Qty: 50 11RF Rx Instructions: Use 1 test strip once a day hydrocortisone [Anti-Itch (HC)] 1 % ointment 1 appl topical BID PRN (Reason: skin irritation) 30 Days Qty: 28.35 0RF aspirin 81 mg tablet,delayed release (DR/EC) 81 mg PO DAILY Qty: 90 3RF famotidine [Pepcid] 40 mg tablet 40 mg PO BID 30 Days Qty: 60 6RF metformin 500 mg tablet extended release 24 hr 2,000 mg PO DAILY Qty: 360 2RF ezetimibe 10 mg tablet 10 mg PO DAILY 90 Days Qty: 90 3RF escitalopram oxalate 5 mg tablet 5 mg PO DAILY 90 Days Qty: 90 1RF Prolia 60 mg/mL syringe 60 mg subcut [id number] Qty: 1 1RF carbidopa-levodopa 25-100 mg tablet 1 tab PO TID 30 Days Qty: 90 1RF (DME) blood pressure monitor Kit See Rx Instructions .Route Qty: 1 0RF Rx Instructions: As directed acetaminophen 650 mg tablet extended release 650 mg PO Q8H 0RF cetirizine [Zyrtec] 10 mg tablet 10 mg PO DAILY PRN0RF metoclopramide HCl [Reglan] 5 mg tablet 5 mg PO QIDACHS 30 Days Qty: 120 6RF Referrals: Lesly Salazar, G[employer] PU[employer] ATTENDANT [Primary Care Provider] - 1 week
[2021-11-18 14:05] LABS: Troponin-I High Sensitivity < 3.5 ng/L (<3.5-17.0)
[2021-11-18 14:08] LABS: Appearance Urine HAZY; Color Urine YELLOW; Glucose Urine UA NEG (NEG); Leukocyte Esterase Urine 1+ (NEG); Nitrite Urine NEG (NEG); UACC Culture Trigger YES; Urine Blood NEG (NEG); Urine Ketones NEG (NEG); Urine Protein NEG (NEG-TRACE)
[2021-11-18 14:16] LABS: Renal Epithelial Cells Urine TRACE /LPF
== END 2021-11-18 15:28 | disposition home or self-care (01) ==
PROVIDERS: Emergency Provider Emergency Medicine; PCP Nurse Practitioner
DX: R07.9 Chest pain, unspecified (principal); I10 Essential (primary) hypertension; E11.9 Type 2 diabetes mellitus without complications; G20 Parkinson's disease
CPT/HCPCS: 36415; 71045; 80048; 81001; 84484; 85025; 87086; 93005; 99283; 99284

== ENCOUNTER → 2021-12-01 09:22 | Outpatient (BNVA) | payer OTHER, SELFPAY | PROVIDERS: PCP Nurse Practitioner; Visit Provider Nurse Practitioner Family | DX: M81.0 Age-related osteoporosis without current pathological fracture (principal) | CPT/HCPCS: 96372 ==

== ENCOUNTER → 2022-03-03 09:30 | Outpatient (BNVA) | payer OTHER, SELFPAY | PROVIDERS: PCP Nurse Practitioner; Visit Provider Nurse Practitioner | DX: Z12.11 Encounter for screening for malignant neoplasm of colon (principal); K31.84 Gastroparesis; R10.9 Unspecified abdominal pain; R11.2 Nausea with vomiting, unspecified; K21.9 Gastro-esophageal reflux disease without esophagitis | CPT/HCPCS: 99212 ==

== ENCOUNTER 2022-03-10 10:29 | Outpatient (REF) | payer OTHER, SELFPAY ==
--- NOTE | ~2022-03-10 | MM_ITS ---
EXAMINATION: MM SCREENING DIGITAL BREAST TOMOSYNTHESIS, BILATERAL CLINICAL INFORMATION: Screening. Asymptomatic. The lifetime risk of breast cancer based on the Tyrer-Cuzick Model is 3%. COMPARISON: Mammography: 02/20/2021, 12/04/2019, 11/28/2018 TECHNIQUE: Digital breast tomosynthesis is performed in both the craniocaudal and mediolateral oblique views along with computer-aided detection (CAD). Synthesized 2D images are generated from the tomosynthesis. FINDINGS: There are scattered areas of fibroglandular density (ACR BI-RADS breast composition Category b). Parenchymal pattern is similar to prior studies. There is no developing density or architectural abnormality. There is biopsy clip marker mid 11:30 o'clock right breast. The axilla and skin contours are unremarkable. No significant changes. There are no significant changes. MM/MM tomosynthesis screening BI IMPRESSION: No mammographic evidence of malignancy. ASSESSMENT: BI-RADS 1: Negative RECOMMENDATION: Routine annual mammography screening. This patient's information was entered into a reminder system with a target due date for their next mammogram.
== END 2022-03-10 10:30 | disposition home or self-care (01) ==
LOC: HO.MAMMO 10:29
PROVIDERS: Visit Provider Nurse Practitioner
DX: Z12.31 Encounter for screening mammogram for malignant neoplasm of breast (principal)
CPT/HCPCS: 77063; 77067

== ENCOUNTER → 2022-04-14 10:28 | Outpatient (BNVA) | payer OTHER, SELFPAY | PROVIDERS: PCP Nurse Practitioner; Visit Provider Nurse Practitioner | DX: R11.2 Nausea with vomiting, unspecified (principal); R10.9 Unspecified abdominal pain; K21.9 Gastro-esophageal reflux disease without esophagitis; K59.00 Constipation, unspecified; K31.84 Gastroparesis | CPT/HCPCS: 99212 ==

== ENCOUNTER 2022-04-15 08:53 | Outpatient (REF) | payer OTHER, SELFPAY ==
--- NOTE | ~2022-04-15 | XR_ITS ---
EXAMINATION: XR ABDOMEN WITH DECUBITUS VIEWS CLINICAL INDICATION: Constipation COMPARISON: None TECHNIQUE: AP view of the abdomen FINDINGS: The bowel gas pattern is normal with no evidence of ileus or obstruction. No unusual soft tissue calcifications are noted. The bones are unremarkable. XR/XR abdomen w decubitus IMPRESSION: Unremarkable examination.
== END 2022-04-15 08:54 | disposition home or self-care (01) ==
LOC: HO.XRAY 08:53
PROVIDERS: PCP Nurse Practitioner; Visit Provider Nurse Practitioner
DX: R10.9 Unspecified abdominal pain (principal); K59.00 Constipation, unspecified
CPT/HCPCS: 74021

== ENCOUNTER → 2022-05-05 08:30 | Outpatient (BNVA) | payer OTHER, SELFPAY | PROVIDERS: PCP Nurse Practitioner; Visit Provider Nurse Practitioner | DX: K31.84 Gastroparesis (principal); R11.2 Nausea with vomiting, unspecified; K59.00 Constipation, unspecified; R10.9 Unspecified abdominal pain; K21.9 Gastro-esophageal reflux disease without esophagitis; G20 Parkinson's disease; E11.9 Type 2 diabetes mellitus without complications | CPT/HCPCS: 99212 ==

== ENCOUNTER → 2022-05-17 09:55 | Outpatient (BNVA) | payer OTHER, SELFPAY | PROVIDERS: PCP Nurse Practitioner; Visit Provider Nurse Practitioner Family | DX: M81.0 Age-related osteoporosis without current pathological fracture (principal); M89.49 Other hypertrophic osteoarthropathy, multiple sites; M25.561 Pain in right knee; M25.562 Pain in left knee; G20 Parkinson's disease | CPT/HCPCS: 99212 ==

== ENCOUNTER 2022-05-19 08:53 | Outpatient (REF) | payer OTHER, SELFPAY ==
--- NOTE | ~2022-05-19 | XR_ITS ---
EXAMINATION: 1. RADIOGRAPHS RIGHT KNEE 2. RADIOGRAPHS LEFT KNEE CLINICAL INFORMATION: Pain after recent falls COMPARISON: Bilateral knee x-rays 04/26/2013 TECHNIQUE: 3 views of each knee were obtained. FINDINGS: Right knee: No fracture or dislocation. No suprapatellar joint effusion. Joint spaces are well-maintained. Tiny tricompartmental marginal osteophytes. No focal soft tissue swelling of the anterior knee. Left knee: No fracture or dislocation. No suprapatellar joint effusion. Joint spaces are well-maintained. Tiny tricompartmental marginal osteophytes. No focal soft tissue swelling of the anterior knee. XR/XR knee LT 3V IMPRESSION: Minimal degenerative changes of both knees.
--- NOTE | ~2022-05-19 | XR_ITS ---
EXAMINATION: 1. RADIOGRAPHS RIGHT KNEE 2. RADIOGRAPHS LEFT KNEE CLINICAL INFORMATION: Pain after recent falls COMPARISON: Bilateral knee x-rays 04/26/2013 TECHNIQUE: 3 views of each knee were obtained. FINDINGS: Right knee: No fracture or dislocation. No suprapatellar joint effusion. Joint spaces are well-maintained. Tiny tricompartmental marginal osteophytes. No focal soft tissue swelling of the anterior knee. Left knee: No fracture or dislocation. No suprapatellar joint effusion. Joint spaces are well-maintained. Tiny tricompartmental marginal osteophytes. No focal soft tissue swelling of the anterior knee. XR/XR knee RT 3V IMPRESSION: Minimal degenerative changes of both knees.
--- NOTE | ~2022-05-19 | XR_ITS ---
EXAMINATION: 1. RADIOGRAPHS THORACIC SPINE 2. RADIOGRAPHS LUMBAR SPINE CLINICAL INFORMATION: Pain after recent falls COMPARISON: Lumbar spine x-rays 04/26/2013 TECHNIQUE: 2 views of the thoracic spine and 3 views of the lumbar spine were obtained FINDINGS: Thoracic spine: Normal alignment of the thoracic spine. Thoracic vertebral body heights are maintained. Thoracic disc spaces and straight minimal narrowing diffusely. Small osteophytes are scattered throughout the thoracic spine. Visualized lung parenchyma is well aerated. Lumbar spine: 5 nonrib-bearing lumbar vertebral bodies are visualized. Normal alignment of the lumbar spine. Lumbar vertebral body heights are maintained. Mild to moderate narrowing of the L5/S1 disc space height. Other disc space heights are well-maintained. Mild degenerative changes of the posterior elements of the lower lumbar spine. XR/XR lumbar spine 2-3V IMPRESSION: Mild diffuse degenerative changes of the thoracolumbar spine. No compression deformity.
--- NOTE | ~2022-05-19 | XR_ITS ---
EXAMINATION: 1. RADIOGRAPHS THORACIC SPINE 2. RADIOGRAPHS LUMBAR SPINE CLINICAL INFORMATION: Pain after recent falls COMPARISON: Lumbar spine x-rays 04/26/2013 TECHNIQUE: 2 views of the thoracic spine and 3 views of the lumbar spine were obtained FINDINGS: Thoracic spine: Normal alignment of the thoracic spine. Thoracic vertebral body heights are maintained. Thoracic disc spaces and straight minimal narrowing diffusely. Small osteophytes are scattered throughout the thoracic spine. Visualized lung parenchyma is well aerated. Lumbar spine: 5 nonrib-bearing lumbar vertebral bodies are visualized. Normal alignment of the lumbar spine. Lumbar vertebral body heights are maintained. Mild to moderate narrowing of the L5/S1 disc space height. Other disc space heights are well-maintained. Mild degenerative changes of the posterior elements of the lower lumbar spine. XR/XR thoracic spine 3V IMPRESSION: Mild diffuse degenerative changes of the thoracolumbar spine. No compression deformity.
[2022-05-19 10:09] LABS: Alanine Aminotransferase 11 U/L (0-31); Albumin Level 3.8 g/dL (3.5-5.0); Alkaline Phosphatase 47 U/L (39-117); Anion Gap 11 (12-20); Aspartate Amino Transferase 20 U/L (5-31); Bilirubin Total 0.4 mg/dL (0.0-1.0); Blood Urea Nitrogen 24 mg/dL (9-16); Calcium 9.1 mg/dL (8.4-10.2); Carbon Dioxide 28 mmol/L (22-29); Chloride 103 mmol/L (96-108); Estimated Glomerular Filt Rate 56; Glucose Random 179 mg/dL (60-115); Potassium 4.3 mmol/L (3.3-5.1); Sodium 138 mmol/L (135-145); Total Protein 6.8 g/dL (6.5-8.0)
== END 2022-05-19 08:54 | disposition home or self-care (01) ==
LOC: HO.XRAY 08:53
PROVIDERS: PCP Nurse Practitioner; Visit Provider Nurse Practitioner Family
DX: M81.0 Age-related osteoporosis without current pathological fracture (principal); M54.9 Dorsalgia, unspecified; M25.561 Pain in right knee; M25.562 Pain in left knee; M54.50 Low back pain, unspecified
CPT/HCPCS: 36415; 72072; 72100; 73562; 80053; 82306

== ENCOUNTER → 2022-06-01 08:32 | Outpatient (BNVA) | payer OTHER, SELFPAY | PROVIDERS: PCP Nurse Practitioner; Visit Provider Nurse Practitioner | DX: R10.9 Unspecified abdominal pain (principal); K21.9 Gastro-esophageal reflux disease without esophagitis; K59.00 Constipation, unspecified | CPT/HCPCS: 99212 ==

== ENCOUNTER → 2022-06-07 08:45 | Outpatient (BNVA) | payer OTHER, SELFPAY | PROVIDERS: PCP Nurse Practitioner; Visit Provider Nurse Practitioner Family | DX: M81.0 Age-related osteoporosis without current pathological fracture (principal) | CPT/HCPCS: 96372 ==

== ENCOUNTER 2022-07-23 08:48 | Emergency (ER) | payer OTHER, SELFPAY ==
[2022-07-23 08:50] VITALS: BP 149/68; PULSE 81; RESP 19; TEMP 36.6; O2SAT 98; BMI 23.8
--- NOTE | 2022-07-23 10:07 | ED.GENADULT ---
HPI - General Adult General Chief complaint: Eye Problems Stated complaint: Swollen/red eyes x3 days Time Seen by Provider: 07/23/22 10:02 Source: patient and family Limitations: no limitations History of Present Illness HPI narrative: 71-year-old female who presents to the ER complaining of red eyes and discharge from her eyes. Slight pain. Itchy and watery. Son states yellow discharge this morning the lids matted together. Patient wears glasses for reading only. Patient denies any recent trauma to the eye. Patient also denies any real visual changes. No nausea vomiting fever chills. No one with similar symptoms at home. Patient does not wear contact lenses. No other complaints at this time. Related Data Home Medications Medication Instructions Recorded Confirmed escitalopram oxalate 10 mg tablet 10 mg PO DAILY 05/05/22 acetaminophen 500 mg tablet 500 mg PO QID PRN 05/17/22 Previous Rx's Medication Instructions Recorded calcium carbonate 500 mg-vitamin 1 tab PO .twice a day 90 days #180 07/03/20 D3 15 mcg (600 unit) tablet tabs blood pressure monitor #1 ea 05/05/21 ezetimibe 10 mg tablet 10 mg PO DAILY 90 days #90 tabs 09/20/21 carbidopa 25 mg-levodopa 100 mg 1 tab PO TID 30 days #90 tabs 02/09/22 tablet dicyclomine 10 mg capsule 10 mg PO BID PRN cramping #60 caps 06/01/22 metformin 500 mg tablet,extended 2,000 mg PO DAILY #360 tabs 06/02/22 release 24 hr bacitracin-polymyxin B 500 1 appl ophthalmic (eye) Q6H 7 days 07/23/22 unit-10,000 unit/gram eye ointment #3.5 grams Allergies Allergy/AdvReac Type Severity Reaction Status Date / Time amlodipine Allergy Intermediate leg edema Verified 06/01/22 09:00 aspirin [ASPIRIN] Allergy Intermediate GERD Verified 06/01/22 09:00 gabapentin Allergy Intermediate rash Verified 06/01/22 09:00 lisinopril Allergy Intermediate angioedema Verified 06/01/22 09:00 naproxen [From NAPROSYN] Allergy Intermediate RASH/DIZZY Verified 06/01/22 09:00 omeprazole Allergy Intermediate tremors Verified 06/01/22 09:00 canagliflozin [Invokana] AdvReac Intermediate rash Verified 06/01/22 09:00 glipizide AdvReac Intermediate hypoglycemi Verified 06/01/22 09:00 a amantadine AdvReac Intermediate Hallucinati Uncoded 06/01/22 09:00 ons Review of Systems Review of Systems: Constitutional : No Weight loss, No Fever, No Chills, No Night Sweats, No Fatigue, No Malaise ENT/Mouth : No Hearing loss, No Ear Pain, No Nasal Congestion, No Sinus Pain, No Hoarseness, No sore throat, No Rhinorrhea, No Swallowing Difficulty Eyes: Bilateral eye redness, slight pain, denies visual changes, positive discharge Cardiovascular : No Chest Pain, No SO Respiratory : No Cough, no shortness of breath Gastrointestinal : No Nausea, No Vomiting, No Diarrhea Musculoskeletal : No joint pain, No Myalgias, No Joint SwellingSkin : No Skin Lesions, No rash Neuro : No Weakness, No Numbness, no headache no dizziness Psych : No Anxiety/Panic, No Depression, No SI/HI/AH/VH, No Social Issues, Heme/Lymph: No Bruising, No Bleeding,No Lymphadenopathy Endocrine : No Polyuria, No Polydipsia, No Temperature Intolerance PMFSH Past Medical History Medical History Abdominal cramping Cataracts, bilateral Constipation Depression Diabetes mellitus Essential hypertension GERD (gastroesophageal reflux disease) Leg edema Osteoarthritis Osteoporosis Parkinsons Pure hypercholesterolemia Tremors of nervous system Vaginal pruritus Surgical History H/O colonoscopy Family History Family History Father Leukemia Mother Chronic mental illness Alzheimers disease Sister Breast cancer Sister Leukemia Sister Esophageal cancer Maternal Grandmother Stomach cancer Family/Other Chronic mental illness Maternal Grandfather Myocardial infarction Sister Alzheimers disease Social History Social History Household Members: None Housing: Apartment Alcohol intake: never Patient Tobacco Use Status: Never used Tobacco e-Cigarette/Vaping Use: Never Used Second Hand Smoke Exposure: No Advance Directives: Yes Advance Directives on File: Yes Advance Directives Date on File: 09/23/20 service: No Current occupational status: disabled Physical Exam ED Vital Signs: Vital Signs - 24 hr 07/23/22 08:50 Temperature 98 F Pulse Rate 81 Respiratory Rate 19 Blood Pressure 149/68 H Pulse Oximetry 98 Oxygen Delivery Method Room Air BMI result Body Mass Index 23.8 vital signs have been reviewed as normal and appeared to be correct. Blood pressure normal. Heart rate normal. Respiration rate normal. Temperature normal. Oxygen saturation normal. Appearance: Alert. Oriented X3. No acute distress. Head: Normal external exam. Normocephalic. Atraumatic. No Soto signs noted. No raccoon eyes noted Eyes: PERRLA. EOMI. sclera is injected. Eyelids nontender. No preorbital tenderness. ENT: Pharynx normal. Uvula midline. Moist mucous membranes. Neck: Soft full range of motion, no JVD CVS: Heart regular rate and rhythm no murmurs and rubs Respiratory: Breath sounds are clear to auscultation bilaterally. No accessory muscle use noted. Back: Full range of motion noted. Skin: Skin warm and dry. Normal skin color. Normal skin turgor. No rashes/lesions/lacerations noted. Extremities: No lower extremity edema. Extremities exhibit normal range of motion. Extremities nontender. Neuro: Oriented X 3. No motor deficit. No sensory deficit. Reflexes normal. Course Course Course Narrative: Corneal abrasion Conjunctivitis Iritis Glaucoma less likely preorbital cellulitis less likel blepharitis Medications Administered Discontinued Medications Generic Name Dose Route Start Last Admin Trade Name Freq PRN Reason Stop Dose Admin Fluorescein Sodium 1 strip 07/23/22 10:06 07/23/22 10:11 Fluorescein Sodium Strip EYE-BOTH 07/23/22 10:07 1 strip ONCE ONE Administration Tetracaine HCl 1 drop 07/23/22 10:06 07/23/22 10:11 Tetracaine Hcl/Pf 0.5% Oph Devi 4 Ml Drops EYE-BOTH 07/23/22 10:07 1 drop ONCE ONE Administration Medical Decision Making Medical Decision Making MDM Narrative: 71-year-old female with atraumatic eye discharge in slight discomfort. Family states or 3 days increasing yellow discharge encrustation sore on the lid. Itchy watery eyes. And very red eyes. No changes in vision at this time according the family. Will do fluorescein stain check visual acuity and intra-ocular pressures. Low suspicion for glaucoma at this time Visual acuity right eye 20/50 left eye 20/40 Fluorescein stain is negative for uptake bilateral eyes were anesthetized with tetracaine. Intra-ocular pressure was measured 23 on the right 21 on the left. Symptoms consistent with conjunctivitis will treat accordingly. Discharge Plan Discharge Clinical Impression: Conjunctivitis Patient Disposition: Home, Self-Care Instructions: Conjunctivitis (ED) Additional Instructions: Your clinical exam is consistent with conjunctivitis eyedrops as directed. if symptoms do not improve follow-up with Ophthalmology or return if symptoms worsen. Prescriptions: New bacitracin-polymyxin B 500-10,000 unit/gram ointment 1 appl ophthalmic (eye) Q6H 7 Days Qty: 3.5 0RF Rx Instructions: applied to both eyes No Action calcium carbonate-vitamin D3 500mg (1,250mg) -600 unit tablet 1 tab PO .twice a day 90 Days Qty: 180 3RF ezetimibe 10 mg tablet 10 mg PO DAILY 90 Days Qty: 90 3RF carbidopa-levodopa 25-100 mg tablet 1 tab PO TID 30 Days Qty: 90 1RF metformin 500 mg tablet extended release 24 hr 2,000 mg PO DAILY Qty: 360 2RF (DME) blood pressure monitor Kit See Rx Instructions .Route Qty: 1 0RF Rx Instructions: As directed acetaminophen 500 mg tablet 500 mg PO QID PRN escitalopram oxalate 10 mg tablet 10 mg PO DAILY dicyclomine 10 mg capsule 10 mg PO BID PRN (Reason: cramping) Qty: 60 3RF Referrals: Tate Johnson [Physician] - Print Language: Egyptian
[2022-07-23] MEDS: Fluorescein Sodium STRIP 1 STRIP EYE-BOTH (10:11)
[2022-07-23] MEDS: Tetracaine HCl/PF 0.5% Oph Sol 4 ML DROPS 1 DROP EYE-BOTH (10:11)
== END 2022-07-23 10:33 | disposition home or self-care (01) ==
PROVIDERS: Emergency Provider Emergency Medicine; PCP Nurse Practitioner
DX: H10.9 Unspecified conjunctivitis (principal); Z79.899 Other long term (current) drug therapy
CPT/HCPCS: 99282; 99283

== ENCOUNTER 2022-11-19 09:30 | Outpatient (REF) | payer OTHER, SELFPAY ==
[2022-11-19 12:00] LABS: Alanine Aminotransferase 16 U/L (0-31); Albumin Level 4.1 g/dL (3.5-5.0); Alkaline Phosphatase 46 U/L (39-117); Anion Gap 17 (12-20); Aspartate Amino Transferase 25 U/L (5-31); Bilirubin Total 0.6 mg/dL (0.0-1.0); Blood Urea Nitrogen 15 mg/dL (9-16); Calcium 9.5 mg/dL (8.4-10.2); Carbon Dioxide 23 mmol/L (22-29); Chloride 105 mmol/L (96-108); Estimated Glomerular Filt Rate 41; Glucose Random 220 mg/dL (60-115); Phosphorus 4.1 mg/dL (2.7-4.5); Potassium 4.5 mmol/L (3.3-5.1); Sodium 140 mmol/L (135-145); Total Protein 7.7 g/dL (6.5-8.0)
[2022-11-19 12:17] LABS: Vitamin D 25-OH Total 36.7 ng/mL (>30)
== END 2022-11-19 09:31 | disposition home or self-care (01) ==
LOC: HO.LAB 09:30
PROVIDERS: Visit Provider Nurse Practitioner Family
DX: M81.0 Age-related osteoporosis without current pathological fracture (principal)
CPT/HCPCS: 36415; 80053; 82306; 84100

== ENCOUNTER → 2022-11-29 08:47 | Outpatient (BNVA) | payer OTHER, SELFPAY | PROVIDERS: PCP Nurse Practitioner; Visit Provider Internal Medicine Rheumatology | DX: M81.0 Age-related osteoporosis without current pathological fracture (principal); M17.0 Bilateral primary osteoarthritis of knee; G20 Parkinson's disease | CPT/HCPCS: 96372; J0897 ==

== ENCOUNTER 2022-11-29 09:26 | Outpatient (REF) | payer OTHER, SELFPAY ==
[2022-11-29 10:56] LABS: C Reactive Protein < 0.10 mg/dL (< or = 0.50); Rheumatoid Factor < 13.0 IU/mL (<15.0)
[2022-11-29 11:10] LABS: Erythrocyte Sedimentation Rate 9 MM/HR (0-20)
[2022-12-03 13:18] LABS: Cyclic Citrullinated Peptide <16 UNITS
== END 2022-11-29 09:27 | disposition home or self-care (01) ==
LOC: HO.10HDL 09:26
PROVIDERS: Visit Provider Internal Medicine Rheumatology
DX: M17.0 Bilateral primary osteoarthritis of knee (principal)
CPT/HCPCS: 36415; 85652; 86140; 86200; 86431; 99212

== ENCOUNTER → 2022-12-13 13:43 | Outpatient (BNVA) | payer OTHER, SELFPAY | PROVIDERS: PCP Nurse Practitioner; Visit Provider Orthopaedic Surgery | DX: M17.0 Bilateral primary osteoarthritis of knee (principal); G20 Parkinson's disease; E11.9 Type 2 diabetes mellitus without complications | CPT/HCPCS: 20610; 99202; J1100 ==

== ENCOUNTER 2023-05-26 10:52 | Outpatient (REF) | payer OTHER, SELFPAY ==
[2023-05-26 12:58] LABS: Anion Gap 13 (12-20); Blood Urea Nitrogen 18 mg/dL (9-16); Calcium 9.7 mg/dL (8.4-10.2); Carbon Dioxide 29 mmol/L (22-29); Chloride 104 mmol/L (96-108); Estimated Glomerular Filt Rate 47; Glucose Random 167 mg/dL (60-115); Potassium 4.5 mmol/L (3.3-5.1); Sodium 141 mmol/L (135-145)
[2023-05-30 18:39] LABS: Lyme Abs Screen <0.90 index
[2023-06-01 12:53] LABS: Vitamin D 25-OH, D2 <4 ng/mL; Vitamin D 25-OH, D3 34 ng/mL; Vitamin D 25-OH, Total 34 ng/mL (30-100)
== END 2023-05-26 10:53 | disposition home or self-care (01) ==
LOC: HO.LAB 10:52
PROVIDERS: Visit Provider Internal Medicine Rheumatology
DX: M17.0 Bilateral primary osteoarthritis of knee (principal); M81.0 Age-related osteoporosis without current pathological fracture
CPT/HCPCS: 36415; 80048; 82306; 86617; 86618

== ENCOUNTER 2023-05-31 10:40 | Outpatient (AMB) | payer OTHER, SELFPAY ==
--- NOTE | 2023-05-31 10:51 | A.OFFVIS_ITS ---
Intake Vital Signs 05/31/23 10:56 Height 5 ft 2 in Weight 149 lb 0.52 oz BMI 27.3 BP 112/70 Blood Pressure Location Rt brachial Pulse 75 Pulse Source Pulse Oximeter Temp 97 F Temp Source Skin Pulse Oximetry (%) 98 Oxygen Delivery Method Room Air Intake Visit Reasons: osteopotosis follow up and prolia inj Intake Note: Patient presents today for Prolia injection an osteoporosis follow up. Neurosurgery Research Director Required: Yes Neurosurgery Research Director Language: Cost Estimator Name: olaf Grimaldo Information Interpreted: clinical only Accompanied by: Son Allergies amlodipine Allergy (Intermediate, Verified 05/31/23 10:52) leg edema aspirin [ASPIRIN] Allergy (Intermediate, Verified 05/31/23 10:52) GERD gabapentin Allergy (Intermediate, Verified 05/31/23 10:52) rash lisinopril Allergy (Intermediate, Verified 05/31/23 10:52) angioedema naproxen [From NAPROSYN] Allergy (Intermediate, Verified 05/31/23 10:52) RASH/DIZZY omeprazole Allergy (Intermediate, Verified 05/31/23 10:52) tremors canagliflozin [Invokana] Adverse Reaction (Intermediate, Verified 05/31/23 10:52) rash glipizide Adverse Reaction (Intermediate, Verified 05/31/23 10:52) hypoglycemia amantadine Adverse Reaction (Intermediate, Uncoded 05/31/23 10:52) Hallucinations HPI HPI Comments History of Present Illness Details Ms. Coppola, 71 yoF returns today for her evaluation and treatment of osteoporosis. Her son accompanies her here today and translates. She has been receiving Prolia injections every 6 months and has not had any side effects or concerns. She last had the injection on the left upper arm and wants one in the right upper arm today. She had blood work done last week that was okay. She last had a bone density test in 2020(lowest -3.5). That showed a marked decline from the baseline from 2007 but shows stability in the numbers since 2019. She has not had any interim fractures. She continues to report bilateral knee pain, worse with walking but is improved with Tylenol Arthritis and Voltarean Gel. The son notes occasional swelling. She also has Parkinson's disease, currently on carbidopa/levodopa. She does not the seem to have any other joint pains. REPLACED BY [facility] Medical History Abdominal cramping Cataracts, bilateral Constipation Depression Diabetes mellitus Essential hypertension GERD (gastroesophageal reflux disease) Leg edema Osteoarthritis Osteoporosis Parkinsons Pure hypercholesterolemia Tremors of nervous system Vaginal pruritus Surgical History H/O colonoscopy Family History Father Leukemia Mother Chronic mental illness Alzheimers disease Sister Breast cancer Sister Leukemia Sister Esophageal cancer Maternal Grandmother Stomach cancer Family/Other Chronic mental illness Maternal Grandfather Myocardial infarction Sister Alzheimers disease Social History Household Members: None Housing: Apartment Alcohol intake: never Patient Tobacco Use Status: Never used Tobacco e-Cigarette/Vaping Use: Never Used Second Hand Smoke Exposure: No Advance Directives Date on File: 09/23/20 service: No Current occupational status: disabled Review of Systems Const All systems reviewed & are unremarkable except as noted in HPI and below Physical Exam Vital Signs: Last Vital Signs Temp 97 F 05/31/23 10:56 Pulse 75 05/31/23 10:56 BP 112/70 05/31/23 10:56 Pulse Ox 98 05/31/23 10:56 Oxygen Delivery Method Room Air 05/31/23 10:56 BMI result Body Mass Index 27.3 APPEARANCE: Patient in no acute distress, nourished and groomed HEART:? Regular rhythm, S1-S2 heard, no murmurs, rubs or gallops. LUNG:? Clear to percussion and auscultation EXTREMITIES: No edema, no calf tenderness, normal peripheral pulses. NEURO: Oriented and alert x3. No focal weakness. Reflexes symmetric. Gait slow and unsteady. She has a resting tremor and all extremities and some upper extremity cogwheeling.. SKIN: No inflammatory or neoplastic lesions. Normal color and turgor JOINT EXAM:.?? Cervical Spine:.? Full range of motion without pain; no tenderness. Thoracic Spine:.? No scoliosis.? No tenderness on palpation. Lumbar Spine:.? Alignment normal.? Mild pain with extremes of motion. No tenderness. Chest Wall:.? No tenderness, swelling, increased warmth or erythema. Hands:.? Normal pain-free range of motion without tenderness, swelling, increased warmth or erythema. Able to make a full fist and has a good accountancy professor strength. Wrists:.? Normal pain-free range of motion without tenderness, swelling, increased warmth or erythema. Elbows:. Normal pain-free range of motion without tenderness, swelling, increased warmth or erythema. Shoulders:.?? Full range of motion without pain. No tenderness, weakness, swelling, increased warmth or erythema. Hip bursa:.? No tenderness. Knees:.?? There is mild patellofemoral crepitus and mild pain with extremes of flexion extension. There is tenderness medially in both knee, more prominent on the right. Do not detect any redness, warmth or effusion. Ankles:.? Normal pain-free range of motion with slight tenderness but no swelling, increased warmth or erythema. Office Meds Prolia 60 mg/mL subcutaneous syringe Performing Provider: YOLY Hernandez Performing Location: [facility] Rheumatology Administered by: Sandhya Andrew RN on 05/31/23 12:04 Dose Route Admin Location Dispensed Lot Number Expiration Date [facility] Analysis Analyst 60 mg subcut 1 mL [id number] 01/17/25 04489-880-27 [employer] Results Reviewed Results Reviewed: Laboratory Tests 05/26/23 11:00 BUN 18 H Estimated GFR 47 Calcium 9.7 Assessment & Plan Assessment & Plan (1) Osteoporosis: Comment: Fosamax 09/2018-04/2019-discontinued due to severe GERD. Prolia -09/2019 to present Code(s): M81.0 - Age-related osteoporosis without current pathological fracture Qualifiers: Osteoporosis type: age-related Presence of current pathological fracture: without current pathological fracture Qualified Code(s): M81.0 - Age- related osteoporosis without current pathological fracture (2) Bilateral primary osteoarthritis of knee: Code(s): M17.0 - Bilateral primary osteoarthritis of knee Plan #Osteoporosis: Miss. Coppola seems to be tolerating the Prolia without problems. The last bone density suggested that the bone density had stabilized. We will give the Prolia today as her lab work looks okay. She was administered 60 mg subcutaneously in the left upper arm without incident. We will repeat labs and obtain an updated DEXA scan in 6 months. #Osteoporosis: A Recheck of the inflammatory markers and rheumatoid factor and CCP antibody was negative. This continues to support that the clinical presentation of the knee pain is likely due to osteoarthritis vs an inflammatory process. She also has had multiple cortisone injections which son says had not provided any relief for any time frame. The Parkinson's disease does complicates her movement given its bradykinesia. She does have a walker and cane at home but apparently does not want to use them. I tried to encourage her to remain physically active using the walker. She had gone to some physical therapy at [facility] a few years ago that was not that helpful. She will continue Voltarean and Tylenol PRN. I encourage and demonstrated to patient muscle strengthening exercises while sitting. We would see her back for her Prolia shot with lab work preceding in about 6 months. Orders: Orders Complete Blood Count Auto Diff 6 Months M17.0 - Bilateral primary osteoarthritis of knee, M81.0 - Age-related osteoporosis without current pathological fracture Vitamin D 1,25 dihydroxy 6 Months M17.0 - Bilateral primary osteoarthritis of knee, M81.0 - Age-related osteoporosis without current pathological fracture Collagen Crosslinks NTX 6 Months M17.0 - Bilateral primary osteoarthritis of knee, M81.0 - Age-related osteoporosis without current pathological fracture Alkaline Phosphatase Bone 6 Months M17.0 - Bilateral primary osteoarthritis of knee, M81.0 - Age-related osteoporosis without current pathological fracture AMB Denosumab Injection Patient Supplied Today M17.0 - Bilateral primary osteoarthritis of knee XR DEXA axial skeleton 6 Months M81.0 - Age-related osteoporosis without current pathological fracture Comprehensive Met. Panel 6 Months M17.0 - Bilateral primary osteoarthritis of knee, M81.0 - Age-related osteoporosis without current pathological fracture Erythrocyte Sedimentation Rate 6 Months M17.0 - Bilateral primary osteoarthritis of knee, M81.0 - Age-related osteoporosis without current pathological fracture C Reactive Protein 6 Months M17.0 - Bilateral primary osteoarthritis of knee, M81.0 - Age-related osteoporosis without current pathological fracture Quality Reporting (2019) Adult ([facility] 138/08/11/68) Smoking risk assessment performed?: Yes Patient Tobacco Use Status: Never used Tobacco Coding Level of Care Code Est Pt Level 4 (74993) Diagnoses Age-related osteoporosis without current pathological fracture M81.0 Osteoporosis type: age-related Presence of current pathological fracture: without current pathological fracture Bilateral primary osteoarthritis of knee M17.0
[2023-05-31 10:56] VITALS: BP 112/70; PULSE 75; TEMP 36.1; O2SAT 98; BMI 27.3
== END 2023-05-31 11:20 | disposition home or self-care (01) ==
PROVIDERS: PCP Nurse Practitioner; Visit Provider Nurse Practitioner Family
DX: M81.0 Age-related osteoporosis without current pathological fracture (principal); M17.0 Bilateral primary osteoarthritis of knee
CPT/HCPCS: 99214

== ENCOUNTER → 2023-05-31 10:40 | Outpatient (BNVA) | payer OTHER, SELFPAY | PROVIDERS: PCP Nurse Practitioner; Visit Provider Nurse Practitioner Family | DX: M81.0 Age-related osteoporosis without current pathological fracture (principal); M17.0 Bilateral primary osteoarthritis of knee | CPT/HCPCS: 96372; 99212; J0897 ==

== ENCOUNTER 2023-09-23 09:50 | Outpatient (REF) | payer OTHER, SELFPAY ==
--- NOTE | ~2023-09-23 | MM_ITS ---
EXAMINATION: MM SCREENING DIGITAL BREAST TOMOSYNTHESIS, BILATERAL CLINICAL INFORMATION: Screening. Asymptomatic. COMPARISON: Mammography: This study is compared with prior exams dating back to 2019. TECHNIQUE: Digital breast tomosynthesis is performed in both the craniocaudal and mediolateral oblique views along with computer-aided detection (CAD). Synthesized 2D images are generated from the tomosynthesis. FINDINGS: The breasts are heterogeneously dense, which may obscure small masses (ACR BI-RADS breast composition Category c). There are no significant masses, abnormal calcifications, or other abnormalities. There is a tissue marker in the superior aspect of the right breast from prior benign percutaneous biopsy. MM/MM tomosynthesis screening BI IMPRESSION: No mammographic evidence of malignancy. ASSESSMENT: BI-RADS BI-RADS 2 - Benign Findings RECOMMENDATION: Routine annual mammography screening. 1 year F/U This examination should not preclude the clinical evaluation of a suspicious palpable abnormality. This patient's information was entered into a reminder system with a target due date for their next mammogram.
== END 2023-09-23 09:51 | disposition home or self-care (01) ==
LOC: HO.MAMMO 09:50
PROVIDERS: Visit Provider Nurse Practitioner Family
DX: Z12.31 Encounter for screening mammogram for malignant neoplasm of breast (principal)
CPT/HCPCS: 77063; 77067

== ENCOUNTER → 2023-09-23 10:15 | Outpatient (BNV) | payer OTHER, SELFPAY | PROVIDERS: Visit Provider Radiology Diagnostic Radiology | DX: Z12.31 Encounter for screening mammogram for malignant neoplasm of breast (principal) | CPT/HCPCS: 77063; 77067 ==

== ENCOUNTER 2023-10-19 09:39 | Outpatient (REF) | payer OTHER, SELFPAY ==
--- NOTE | ~2023-10-19 | MM_ITS ---
EXAMINATION: BONE DENSITOMETRY CLINICAL INDICATION: Age-related osteoporosis without current pathological fracture. COMPARISON: Previous BD dated 02/20/2021 and baseline BD dated 01/25/2007. TECHNIQUE: Using a [facility] DXA System (software version: 13.1) manufactured by [employer], dual-energy x-ray absorptiometry was performed of the lumbar spine and left hip. The images are of good technical quality. Summary results are attached. FINDINGS: LEFT FEMUR, NECK: Current: BMD 0.670 g/cm2, Z-score -0.5, T-score -2.6, osteoporosis. Prior: BMD 0.696 g/cm2. Baseline: BMD 0.727 g/cm2. LEFT FEMUR, TOTAL: Current: BMD 0.791 g/cm2, Z-score 0.3, T-score -1.7, osteopenia, 6.9% increase from previous, 0.6% decrease from baseline (<5% change is not significant). Prior: BMD 0.740 g/cm2. Baseline: BMD 0.796 g/cm2. AP SPINE L1-L4: Current: BMD 0.837 g/cm2, Z-score -0.6, T-score -2.9, osteoporosis, 4.1% increase from previous, 4.8% decrease from baseline (<5% change is not significant). Prior: BMD 0.804 g/cm2. Baseline: BMD 0.879 g/cm2. IDENTIFIED RISK FACTORS: Dementia, history of fracture (adult), menopause, osteoporosis. HISTORY OF FRACTURE: Elbow. MEDICATIONS: Calcium, multivitamin, prolia, vitamin D. MM/XR DEXA axial skeleton IMPRESSION: 1. DIAGNOSIS: Osteoporosis based on the lowest T-score value of 2.9 in the lumbar spine applying World Health Organization criteria. 2. 10-YEAR FRACTURE RISK PREDICTION, FRAX: According to the guidelines, FRAX calculation should only be performed on patients in the osteopenia bone density category. Therefore, FRAX was not performed on this patient.? 3. Treatment Recommendations: NOF guidelines recommend consideration for treatment in postmenopausal women and men age 50 and older presenting with the following: -A hip or vertebral (clinical or morphometric) fracture. -T-score less than or equal to -2.5 at the femoral neck or spine after appropriate evaluation to exclude secondary causes. -Low bone mass at the hip or spine and a 10-year fracture probability by FRAX of greater than or equal to 3% for hip fracture or greater than or equal to 20% for major osteoporotic fracture based on the [place] adapted WHO algorithm. 4. Other Recommendations: All treatment decisions require clinical judgment and consideration of individual patient factors, including patient preferences, comorbidities, previous drug use, risk factors not captured in the FRAX model (e.g. frailty, falls, vitamin D deficiency, increased bone turnover, interval significant decline in bone density) and possible under or overestimation of fracture risk by FRAX. Additional medical evaluation for secondary cause of low bone mineral density may be appropriate. FUTURE SCAN RECOMMENDATION: People with diagnosed cases of osteoporosis or at high risk for fracture should have regular bone mineral density tests. For patients eligible for Medicare, routine testing is allowed once every 2 years. The testing frequency can be increased to one year for patients who have rapidly progressing disease, those who are receiving or discontinuing medical therapy to restore bone mass, or have additional risk factors.
== END 2023-10-19 09:40 | disposition home or self-care (01) ==
LOC: HO.MAMMO 09:39
PROVIDERS: PCP Nurse Practitioner; Visit Provider Nurse Practitioner Family
DX: Z13.820 Encounter for screening for osteoporosis (principal); Z78.0 Asymptomatic menopausal state; M81.0 Age-related osteoporosis without current pathological fracture
CPT/HCPCS: 77080

== ENCOUNTER 2023-11-25 10:11 | Outpatient (REF) | payer OTHER, SELFPAY ==
--- NOTE | ~2023-11-25 | FL_ITS ---
EXAMINATION: Modified Barium Swallow CLINICAL INFORMATION: Dysphagia COMPARISON: None TECHNIQUE: Modified barium swallow was performed under lateral fluoroscopy with patient in standing position. Barium mixed with solids and liquids of different consistencies was administered by the speech pathologist. Examination was recorded in the fluoroscopy suite. FINDINGS: Laryngeal penetration was seen with thin barium. No aspiration was observed during this examination. FLUOROSCOPY TIME: 3 minutes 9 seconds Number of Spot Images: 1 DOSE AREA PRODUCT: 173.5 uGy-m2 (microgray-meter squared) FL/FL barium swallow modified IMPRESSION: Laryngeal penetration was seen with thin barium. No subglottic aspiration was observed during this examination. Refer to the speech therapy report for further clarification This procedure was performed by Reynaldo Pina PA-C, and supervised by Dr. Pike
--- NOTE | 2023-11-25 11:59 | MHC.SL.IMP ---
Addendum entered and electronically signed by Bridgett Agarwal MA, CCC-SYSTEMS LEAD 11/25/23 15:32: Patient was able to tolerate whole barium tablet with water during this study. It is noted that patient's son reports patient often chokes on pills, especially large pills. Recommend larger pills to be crushed in puree as needed. Original Note: Date of Plan of Treatment: 11/25/23 Onset of Symptoms/Illness: 10/24/22 Date Treatment Started: 11/25/23 Admitting Diagnosis: Parkinson's disease Primary Speech & Language Diagnosis: R13.12 Oropharyngeal Phase Dysphagia Reason for Today's Visit: 90437 Modified Barium Swallow Study Pre-evaluation Dietary Consistencies: Eats softer foods at home Pre-evaluation Liquid Consistency: Thin Pre-evaluation Medication Administration: Whole with Liquid Medical History: Modified Barium Swallow Study Fluoroscopic Evaluation of Swallowing Function CPT Code 92494 Evaluation Year: 2023 Reason for Study: Difficulty swallowing Referring Physician: Shelli Frederick NP Evaluating Clinician: Bridgett Agarwal MA, CCC-SYSTEMS LEAD Study Number: 1 Patient Name: Anat Trivedi Status: Outpatient, Ambulatory/Assisted Age: 73 Gender: Female Medical History Medical History Abdominal cramping Cataracts, bilateral Constipation Depression Diabetes mellitus Essential hypertension GERD (gastroesophageal reflux disease) Leg edema Osteoarthritis Osteoporosis Parkinsons Pure hypercholesterolemia Tremors of nervous system Vaginal pruritus Surgical History H/O colonoscopy Current (pre-evaluation) Intake/Diet: Route: PO Diet Grade: Regular ?Softer Foods? Liquid Consistencies: Thin Pre-Study Functional Oral Intake Scale (FOIS): 5- Total oral intake of multiple consistencies requiring special preparation Pain: None reported at time of study SUBJECTIVE: Patient is a 73 year old female referred for a modified barium swallow study by her PCP, Shelli Frederick NP. Patient was accompanied to her appointment by her son and caregiver. Patient?s son reports patient has been choking at random with both solids and liquids. He reports this has been going on ?for a while,? but less than a year. Patient eats softer foods at home and cannot eat foods such as hedrick or chicken because she has difficulty swallowing harder solids. She is also having trouble getting her pills down. Patient has Parkinson ?s disease, per review of her electronic medical record, she is taking carbidopa/levodopa. History also includes GERD. Food and Liquid Trials: Oral Impairment: Lip Closure: 1=Interlabial escape; no progression to anterior tip Oral Impairment: Tongue Control During Bolus Hold: Did not test Oral Impairment: Bolus Preparation/Mastication: 2=Disorganized chewing/mashing with solid pieces of bolus Oral Impairment: Bolus Transport/Lingual Motion: 1= Delayed initiation of tongue motion Oral Impairment: Oral Residue: 1=Trace residue lining oral structures Oral Impairment:Initiation of Pharyngeal Swallow: 2=Bolus head at posterior laryngeal surface of epiglottis Pharyngeal Impairment: Soft Palate Elevation: 0=No bolus between soft palate (SP)/pharyngeal wall (PW) Pharyngeal Impairment: Laryngeal Elevation: 1=Partial thyroid cartilage/arytenoids to epiglottic petiole movement Pharyngeal Impairment: Anterior Hyoid Excursion: 1=Partial anterior movement Pharyngeal Impairment: Epiglottic Movement: 1=Partial inversion Pharyngeal Impairment: Laryngeal Vestibular Closure:: 1=Incomplete: narrow column air/contrast in laryngeal vestibule Pharyngeal Impairment: Pharyngeal Stripping Wave: 0=Present: complete Pharyngeal Impairment: Pharyngeal Contraction: Did not test Pharyngeal Impairment: Pharyngoesophageal Segment Openin=Partial distention/partial duration: partial obstruction of flow Pharyngeal Impairment: Tongue Base (TB) Retraction: 2=Narrow column of contrast/air between TB and posterior PW Pharyngeal Impairment: Pharyngeal Residue: 2=Collection of residue within or on pharyngeal structures Pharyngeal Impairment: Esophageal Clearance Upright Position: 0=Complete clearance: esophageal coating Impressions and Recommendations Clinical Observations: OBJECTIVE: Time-out: performed at 10:50 Evaluation Start: 10:30; Stop: 10:35 Patient Positioning: Seated 70-90 degrees Viewing Planes: LATERAL ONLY Contrast: MBSImP? Standardized Protocol using commercially prepared, standardized Barium viscosities, including: Varibar? THIN LIQUID (40% w/v, <15 cps) , Varibar? NECTAR (40% w/v, <150-450 cps) , 1/2 Shortbread Cookie (1 x1 x.25 ) MBSImP ID: [id number] MBSImP Results: Lip closure for intraoral bolus containment resulted in interlabial escape, without progression to the anterior lip. Tongue control during bolus hold could not be assessed due to logistical reasons not related to physiologic impairment. Bolus preparation and mastication demonstrated disorganized chewing/mashing with solid pieces of the bolus unchewed. Bolus transport/lingual motion demonstrated delayed initiation of tongue motion. Oral residue was a trace, lining oral structures. Initiation of the pharyngeal swallow occurred as the bolus head was at the posterior laryngeal surface of the epiglottis. Soft palate elevation resulted in no bolus between the soft palate and the pharyngeal wall. Laryngeal elevation was decreased, with partial superior movement of the thyroid cartilage/partial approximation of the arytenoids to the epiglottic petiole. Anterior hyoid excursion demonstrated partial anterior movement. Epiglottic movement resulted in partial inversion. Laryngeal vestibular closure was incomplete, with a narrow column of air/contrast noted within the laryngeal vestibule at the height of the swallow. Pharyngeal stripping wave was present and complete. Pharyngeal contraction could not be determined due to logistical reasons not related to physiologic impairment. Pharyngoesophageal segment opening demonstrated partial distension/partial duration, with partial obstruction of bolus flow. Tongue base retraction allowed a narrow column of contrast or air between the retracted tongue base and the posterior pharyngeal wall. Pharyngeal residue was a collection of residue within or on pharyngeal structures. Esophageal clearance in the upright position was complete, with only a coating of contrast, if any. Oral Impairment Score: 5 (absence of score, component 2) Pharyngeal Impairment Score: 9 (absence of score, component 13) Esophageal Impairment Score: 0 Laryngeal Penetration and Aspiration: Penetration was observed in today's study. Thin Contrast entered the airway, contacted the vocal folds, and was ejected from the airway. ASSESSMENT: Clinician Assessment: This exam was conducted by the radiologist and the speech pathologist. Patient was seated upright in a chair for lateral view only. She was able to feed herself and trialed thin (individual cup sips), nectar thick (individual cup sips), puree (applesauce), ground (chicken salad), and regular solid (shortbread cookie) textures. Note some interlabial escape, but no spilling beyond the mason border. Note disorganized anterior chewing pattern and delayed lingual transport. Pharyngeal swallow trigger initiated when the bolus head had reached the posterior laryngeal surface of the epiglottis. Post-swallow, there was trace lingual residue which subsequently cleared. No nasopharyngeal reflux. Incomplete laryngeal elevation with incomplete epiglottic inversion. There was trace penetration to the vocal folds with sip of thin liquid, which patient was able to clear with cued throat clear. No evidence of aspiration during this exam. Mild residue on the tongue base, in the valleculae, in the pyriforms, and on the posterior pharyngeal wall. Patient was able to clear pharyngeal residue with dry swallows. Patient swallowed whole barium pill tablet with sips of water. Pill passed through the oral cavity, pharyngeal cavity, and esophagus without hang up. The following compensatory strategies have not been used until today's study, but when employed, improved swallowing function: Additional Swallow(s) per Bolus eliminated Oral Residue, Pharyngeal Residue Throat Clear eliminated Penetration Liquid Intake Recommendation: Thin Liquid Intake Strategies: Small Sips, No Straws Dietary Recommendations: Chopped/Advanced (NDD3) Medication Administration: Crushed with Puree Please contact the pharmacy regarding appropriate crushable or liquid drug formulations that are available whenever modified delivery is recommended. Compensatory Strategies Recommended: Sitting Upright (90 deg), Double Swallow, No Straw, Small Bites and Sips, Alternate Liquids/Solids, Rate of Ingestion Change, Avoid Specific Foods Supervision during eating and or drinking: Total Supervision (1:1) Recommended Treatments: Compens. Strategy Educat. Recommendation for Speech Therapy: NA:Typical Evaluation Text Comment: Intake Recommendations: Route: PO Diet Grade: Chopped/Advanced (National Dysphagia Diet Level 3) Liquid Consistencies: Thin Post-Study Functional Oral Intake Scale (FOIS): 5- Total oral intake of multiple consistencies requiring special preparation Patient presents with mild oropharyngeal dysphagia, in the setting of underlying Parkinson?s disease. Episode of penetration above the vocal folds with trace amount of thin liquid, cleared with a volitional throat clear. No evidence of aspiration during this exam. Minimal oral and pharyngeal residue cleared with dry swallows. Patient was able to swallow whole barium pill tablet with sips of water. Given family reports of patient having difficulty chewing harder solids, patient is recommended CHOPPED/ADVANCED (NDD3) diet with THIN liquids. The following strategies are also recommended to maximize safety: -Food to be soft and bite sized, moisten and soften with thick sauces and gravies -Avoid foods which are tough/hard to chew, sticky, or crunchy. Avoid mixed textures (i.e. foods with separation of thin liquid; thin broths with solid ingredients) -Cue patient to chew food well -Dry swallow between bites -Alternate bites of food with sips of liquid -Take small individual sips, avoid ?chugging? or gulping liquids -Liquids by teaspoon or cup, avoid the use of straws -Throat clear intermittently between sips -Upright 90 degree position during PO intake Therapy Recommendations: Patient and her son were counselled on SYSTEMS LEAD recommendations. They deny having questions at this time. Given the nature of underlying Parkinson?s disease, patient and her caregiver(s) are encouraged to continue monitoring her dysphagia. If there are any changes or worsening of symptoms, recommend patient to consult with PCP, at which point a re-assessment may be warranted. Prognosis for Improvement: The prognosis for the patient to meet nutritional needs by mouth is good based on degree of impairment, support system. Clinician - Supplemental, Miscellaneous Communication: It is important to note MBSS objective studies are snapshots in time and Patient function might vary with factors such as time of day or concomitant medical conditions. For this reason, the final treatment plan for this patient should rest with their medical care team. Additional recommendations should be considered with the totality of the Patient in mind. Thank for the opportunity to participate in the care of this patient. If you have any questions about the content of this report, please contact the [facility]. Education: Education regarding findings from today's study and plans for therapy were provided to Patient and family/caregiver through Verbal Instruction. Understanding was expressed by the Patient and family/caregiver. Campaign Analyst Clinician/Clinical Fellow: No Supervisory Statement: N/A Speech Language Pathologist: Bridgett Agarwal M.A., [facility]-SYSTEMS LE[employer]
== END 2023-11-25 10:12 | disposition home or self-care (01) ==
LOC: HO.XRAY 10:11
PROVIDERS: PCP Internal Medicine; Visit Provider Registered Nurse
DX: R13.10 Dysphagia, unspecified (principal)
CPT/HCPCS: 74230; 92611

== ENCOUNTER → 2023-11-25 10:13 | Outpatient (BNV) | payer OTHER, SELFPAY | PROVIDERS: PCP Internal Medicine; Visit Provider Physician Assistant Surgical | DX: R13.10 Dysphagia, unspecified (principal) | CPT/HCPCS: 74230 ==

== ENCOUNTER 2023-11-30 10:07 | Outpatient (AMB) | payer OTHER, SELFPAY ==
--- NOTE | 2023-11-30 10:23 | A.OFFVIS_ITS ---
Vital Signs 11/30/23 10:24 Height 5 ft 2 in Weight 132 lb 0.91 oz BMI 24.2 BP 124/64 Blood Pressure Location Rt brachial Position Sitting Pulse 68 Pulse Source Pulse Oximeter Pulse Oximetry (%) 94 Oxygen Delivery Method Room Air Intake Visit Reasons: osteopotosis Intake Note: Patient last seen 05/31/[address] Rocha, presents today for follow up and test results. DEXA done Oct, 2023. Rehabilitation Manager Required: Yes Rehabilitation Manager Language: Industrial Hygiene Technician Name: Dillan Truong - form signed Accompanied by: Son Allergies amlodipine Allergy (Intermediate, Verified 11/30/23 10:34) leg edema aspirin [ASPIRIN] Allergy (Intermediate, Verified 11/30/23 10:34) GERD gabapentin Allergy (Intermediate, Verified 11/30/23 10:34) rash lisinopril Allergy (Intermediate, Verified 11/30/23 10:34) angioedema naproxen [From NAPROSYN] Allergy (Intermediate, Verified 11/30/23 10:34) RASH/DIZZY omeprazole Allergy (Intermediate, Verified 11/30/23 10:34) tremors canagliflozin [Invokana] Adverse Reaction (Intermediate, Verified 11/30/23 10:34) rash glipizide Adverse Reaction (Intermediate, Verified 11/30/23 10:34) hypoglycemia amantadine Adverse Reaction (Intermediate, Uncoded 11/30/23 10:34) Hallucinations HPI Comments Details: Ms. Coppola, 71 yoF returns today for her follow-up and treatment of osteoporosis. Her son accompanies her here today and translates. She has been receiving Prolia injections every 6 months and has not had any side effects or concerns. The last had the injection on the right upper arm and wants one in the left upper arm today. She had blood work done last week that was okay. October 2023 bone density (lowest T-Score -2.9). That showed some improvement since 2020 and stability in the numbers since 2018. She has not had any interim fractures. She continues to report bilateral knee pain, worse with walking but is improved with Tylenol Arthritis and Voltarean Gel. The son notes occasional swelling. She also has Parkinson's disease, currently on carbidopa/levodopa. She does not the seem to have any other joint pains. [facility] Medical History Abdominal cramping Cataracts, bilateral Constipation Depression Diabetes mellitus Essential hypertension GERD (gastroesophageal reflux disease) Leg edema Osteoarthritis Osteoporosis Parkinsons Pure hypercholesterolemia Tremors of nervous system Vaginal pruritus Surgical History H/O colonoscopy Family History Father Leukemia Mother Chronic mental illness Alzheimers disease Sister Breast cancer Sister Leukemia Sister Esophageal cancer Maternal Grandmother Stomach cancer Family/Other Chronic mental illness Maternal Grandfather Myocardial infarction Sister Alzheimers disease Social History Household Members: None Housing: Apartment Alcohol intake: never Patient Tobacco Use Status: Never used Tobacco e-Cigarette/Vaping Use: Never Used Second Hand Smoke Exposure: No Advance Directives Date on File: 09/23/20 service: No Current occupational status: disabled Review of Systems Const All systems reviewed & are unremarkable except as noted in HPI and below Physical Exam Vital Signs: Last Vital Signs Pulse 68 11/30/23 10:24 BP 124/64 11/30/23 10:24 Pulse Ox 94 11/30/23 10:24 Oxygen Delivery Method Room Air 11/30/23 10:24 BMI result Body Mass Index 24.2 Vital signs reviewed. Constitutional: Non-toxic appearing. No acute distress. Well-developed and well-nourished. HEENT: Normocephalic and atraumatic. External auditory canals without erythema or edema bilaterally. Skin: Warm and dry. No rashes or lesions noted. Neck: Full and painless range of motion. No cervical lymphadenopathy. Cardio: Regular rate and rhythm. No murmurs, gallops, or rubs. No lower extremity edema. No JVD. Pulmonary: No respiratory distress. No accessory muscle usage. Musculoskeletal: Normal range of motion in joints throughout the body. No deformity or other signs of injury. Neuro: Alert and oriented x4. Cranial nerves 2-12 grossly intact. No focal deficits appreciated. Office Meds Prolia 60 mg/mL subcutaneous syringe Performing Provider: YOLY Hernandez [place] [facility] [place] Administered by: YOLY Hernandez on 11/30/23 10:56 Dose Route Admin Location Dispensed Lot Number Expiration Date NDC Poleyard Supervisor 60 mg subcut left deltoid 1 mL [id number] 09/17/25 23257-517-78 [employer] Quality Reporting (2019) Adult ([facility] 138/08/11/68) Smoking risk assessment performed?: Yes Patient Tobacco Use Status: Never used Tobacco Results Reviewed Results Reviewed: Need updated labs Assessment & Plan Assessment & Plan (1) Osteoporosis: Comment: Fosamax 09/2018-04/2019-discontinued due to severe GERD. Prolia -09/2019 to present Code(s): M81.0 - Age-related osteoporosis without current pathological fracture Category: Medical Qualifiers: Osteoporosis type: age-related Presence of current pathological fracture: without current pathological fracture Qualified Code(s): M81.0 - Age- related osteoporosis without current pathological fracture (2) Bilateral primary osteoarthritis of knee: Code(s): M17.0 - Bilateral primary osteoarthritis of knee Plan #Osteoporosis: October 2023 DEXA TScore -2.9 in Spine Miss. Coppola seems to be tolerating the Prolia without problems. The last bone density suggested that the bone density had some improvement and is stabilized. We will give the Prolia today but also needs updated lab work . She was administered 60 mg subcutaneously in the left upper arm without incident. #Osteoarthritis of Knees: This continues to support that the clinical presentation of the knee pain is likely due to osteoarthritis vs an inflammatory process. She also has had multiple cortisone injections which son says had not provided any relief for any time frame. The Parkinson's disease does complicates her movement given its bradykinesia. She does have a walker and cane at home but apparently does not want to use them. I tried to encourage her to remain physically active using the walker. She had gone to some physical therapy at [facility] a few years ago that was not that helpful. She will continue Voltarean and Tylenol PRN. I encourage and demonstrated to patient muscle strengthening exercises while sitting. We would see her back for her Prolia shot with lab work preceding in about 6 months. Orders: Orders AMB Denosumab Injection Patient Supplied Today M81.0 - Age-related osteoporosis without current pathological fracture Calcium Today M81.0 - Age-related osteoporosis without current pathological fracture Creatinine Today M81.0 - Age-related osteoporosis without current pathological fracture Basic Metabolic Panel Today M81.0 - Age-related osteoporosis without current pathological fracture Coding Level of Care Code Est Pt Level 3 (62242) Diagnoses Age-related osteoporosis without current pathological fracture M81.0 Osteoporosis type: age-related Presence of current pathological fracture: without current pathological fracture Bilateral primary osteoarthritis of knee M17.0
[2023-11-30 10:24] VITALS: BP 124/64; PULSE 68; O2SAT 94; BMI 24.2
== END 2023-11-30 10:59 | disposition home or self-care (01) ==
PROVIDERS: PCP Nurse Practitioner; Visit Provider Nurse Practitioner Family
DX: M81.0 Age-related osteoporosis without current pathological fracture (principal); M17.0 Bilateral primary osteoarthritis of knee
CPT/HCPCS: 99213

== ENCOUNTER → 2023-11-30 10:07 | Outpatient (BNVA) | payer OTHER, SELFPAY | PROVIDERS: PCP Nurse Practitioner; Visit Provider Nurse Practitioner Family | DX: M81.0 Age-related osteoporosis without current pathological fracture (principal); M17.0 Bilateral primary osteoarthritis of knee; Z79.620 Long term (current) use of immunosuppressive biologic | CPT/HCPCS: 96372; 99212; J0897 ==

== ENCOUNTER 2024-01-27 08:47 | Outpatient (AMB) | payer OTHER, SELFPAY ==
--- NOTE | 2024-01-27 08:55 | A.OFFVIS_ITS ---
Vital Signs 01/27/24 08:57 Height 5 ft 2 in Weight 130 lb BMI 23.8 BP 130/82 Blood Pressure Location Rt brachial Position Sitting Pulse 71 Pulse Source Pulse Oximeter Pulse Oximetry (%) 98 Oxygen Delivery Method Room Air Intake Visit Reasons: ENP-Parkinson disiease w/dyskinesia-LVM Intake Note: patient presents for parkinsons disease.Patient has been diagnosed with radha ons 3 years now. tremors are getting worst affecting the throat. Security System Administrator Required: No Security System Administrator Services: Security System Administrator Offered & Declined Security System Administrator Name: Dillan Truong (son) Allergies amlodipine Allergy (Intermediate, Verified 11/30/23 10:34) leg edema aspirin [ASPIRIN] Allergy (Intermediate, Verified 11/30/23 10:34) GERD gabapentin Allergy (Intermediate, Verified 11/30/23 10:34) rash lisinopril Allergy (Intermediate, Verified 11/30/23 10:34) angioedema naproxen [From NAPROSYN] Allergy (Intermediate, Verified 11/30/23 10:34) RASH/DIZZY omeprazole Allergy (Intermediate, Verified 11/30/23 10:34) tremors canagliflozin [Invokana] Adverse Reaction (Intermediate, Verified 11/30/23 10:34) rash glipizide Adverse Reaction (Intermediate, Verified 11/30/23 10:34) hypoglycemia amantadine Adverse Reaction (Intermediate, Uncoded 11/30/23 10:34) Hallucinations Medication List - Last Reconciled 01/27/24 by CANDICE Betts acetaminophen 500 mg PO QID PRN bacitracin-polymyxin B 500-10,000 unit/gram 1 appl ophthalmic (eye) Q6H 7 days blood pressure monitor As directed blood sugar diagnostic (FreeStyle Test strips) Use 1 test strip once a day calcium carbonate-vitamin D3 500 mg-15 mcg (600 unit) 1 tab PO .twice a day 90 days carbidopa-levodopa 25-100 mg 1 tab PO TID 30 days denosumab (Prolia) 60 mg subcut [id number] dicyclomine 10 mg PO BID PRN escitalopram oxalate 10 mg PO DAILY ezetimibe 10 mg PO DAILY 90 days hydroxyzine HCl 10 mg PO BEDTIME metformin ER 2,000 mg (4 x 500 mg) PO DAILY omega 1-txt-kjv-fish oil 60-90-500 mg caps PO trazodone mg PO HPI Comments Details: 73-yr-old female presents for new pt evaluation of movement disorder, specifically: transfer of care for Parkinson's dz management. Pt is accompanied by her son Dillan, [place]. Pt has 3 children in total- 2 sons and 1 dtr. PMH: arthritis, DM, memory loss, osteoporosis, GERD, pyelonephritis, HLD, HTN. Pt reports she was diagnosed w/ PD about 3-[address] Mclean. She has been since been f/b Dr Balderrama, and is transferring here as Dr Balderrama has retired. They state her initial symptoms were right-handed tremor. However, on discussion today, pt reports hallucination started at least > 1 yr before tremor onset, and son states that he just realized that pt began having strange behaviors in approx 2015/2016- one day she just showed up at his job w/o clear reason for needing to see him, and from that point on, pt began to need more support. She is noticing progression of symptoms, tremor and swallowing difficulties. Pt is feeling frustrated by her medication burden, swallowing difficulties, and feels the medications are not helping. Current PD regimen: CD-LD 25-100mg 1 tab tid (am, afternoon, and nighttime). She is having difficulty swallowing the pills. She feels the CD-LD helps, but causes nausea and wears off between the doses. Previous PD med tx's: Amantadine helped tremor but caused severe hallucinations. Pt is right handed. 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 Has a VNA who comes daily for med manag ement and VS. She lives alone in an apartment- elderly housing. IADL status: Her son manages her finances. Fine-motor skills: She has difficulty with buttons, zippers, cutting foods, writing. They have adjusted her clothing to promote her independence. She has weighted silverware- not always using. Changes in writing or micrographia: Writing is shaky. Vision changes: dry eye, sometimes diplopia Voice changes or Hypophonia: voice is softer Hyposmia: Denies Dysphagia: Difficulty with swallowing fluids, solids, and her own saliva. She had a swallow study- son states was normal but she choke during the study. She has not done SERVICE ESTABLISHMENT ATTENDANT. She has not seen GI in a while- used to see for acid reflux. Drooling: Chokes on her own saliva, but denies drooling. Orthostatic lightheadedness: Feels dizzy, faint, weak upon standing or sometimes when standing. Her appetite can be decreased. She does take fluids. GI: Denies constipation, but son states sometimes. : Urge or stress incontinence- sometimes may not make it to the bathroom on time. Has pull-ups- she does not like to use. Has not seen urology. Musculoskeletal issues: On Prolia for osteoporosis. Has chronic bilateral knee pain- is f/b rheumatology. Paresthesias: Denies Slowness: Slower overall Stiffness: Has stiffness. Does have nocturnal leg cramps. Tremor: Started as a RUE rest tremor and has spread to legs, left-side and face. Involuntary movements: Denies Dyskinesia: Denies Gait changes: Freezing episodes: Denies Falls: She has had falls. Her last fall was a trip. But she can fall backwards. Mood concerns: Has had depression, anxiety for many years. She has a psychiatrist and therapist. Memory impairment: STM lapses Sleep difficulty: States sleeps well. Parasomnias: Unknown- pt lives alone. Hallucinations: Hallucinations started a little before the tremor onset. Has visual, auditory, and rarely some tactile hallucination- like someone has touched her. She may see someone walk by her. She will think her dtr has kept her up all night. Has seen a dog in her apartment- and felt the dog would want to bite her. Will think her son is in the house when he is not. She talks to her hallucinations. She talks to and disciplines her stuffed animals. Usual exercise: Not much. Previous head imaging or work-up: Has not had head imaging since before PD dx. History of concussion/head injury? Denies History of neuroleptic (metoclopramide/antipsychotics) use? Denies History of psychiatric hospitalizations? Denies History of occupational chemical exposures? 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 Family history of movement disorders? Her older sister dx's w/ PD in her 60s, at age 65-70 d/t PD, with similar presentation. Her mother also had Parkinson's w/ hallucinations- dx'd in 70s, and in her 80s in a retirement. Family history of mood disorder or suicide? Denies [facility] Medical History Abdominal cramping Cataracts, bilateral Constipation Depression Diabetes mellitus Essential hypertension GERD (gastroesophageal reflux disease) Leg edema Osteoarthritis Osteoporosis Parkinsons Pure hypercholesterolemia Tremors of nervous system Vaginal pruritus Surgical History H/O colonoscopy Family History Father Leukemia Mother Chronic mental illness Alzheimers disease Sister Breast cancer Sister Leukemia Sister Esophageal cancer Maternal Grandmother Stomach cancer Family/Other Chronic mental illness Maternal Grandfather Myocardial infarction Sister Alzheimers disease Social History Household Members: None Housing: Apartment Alcohol intake: never Patient Tobacco Use Status: Never used Tobacco e-Cigarette/Vaping Use: Never Used Second Hand Smoke Exposure: No Advance Directives Date on File: 09/23/20 service: No Current occupational status: disabled Physical Exam Vital Signs: Last Vital Signs Pulse 71 01/27/24 08:57 BP 130/82 01/27/24 08:57 Pulse Ox 98 01/27/24 08:57 Oxygen Delivery Method Room Air 01/27/24 08:57 BMI result Body Mass Index 23.8 Const General: cooperative and no acute distress Resp Effort & Inspection: normal respiratory effort and able to speak in complete sentences Cardio Rate: regular rate Rhythm: regular rhythm Neuro Other: General: A&O x's 2- to person and place. She states the day is (not Tuesday), she cannot say the year. She often defers to her son to answer, but does naswer appropriately and follows directions well during exam. Expression: Decreased EOM- intact. Upgaze and downgaze intact. No nystagmus. Voice: Soft Tremor: RUE & RLE rest tremor, Mild BUE postural re-emergent and kinetic tremor. Foot taps and YOLA induce RUE spread of movement tremor. Mild lingual and chin tremor. Mild right cheek tremor on smile. Tone: BUE R > L rigidity Dyskinesia: None FFM: BUE, more so on right, Bradykinesia Finger-Nose: BLE, more so on right, bradykinesia BUE YOLA: BUE, more so on right, poor fluidity Foot taps: BLE bradykinesia Gait: Slow to stand, needs to use hands to push up from chair, slight stoop in shoulders, no arm swing w/ BUE R > L tremor, short steps w/ very low floor clearance- at times gait scissors, multiple steps to turn. Psych: Pleasant affect Deep tendon reflexes (DTR's): Right triceps reflex intensity grade: 2+, Left triceps reflex intensity grade: 2+, Rt Biceps (C5, C6): 2+, Left biceps reflex intensity grade: 2+, Right brachioradialis reflex intensity grade: 2+, Left brachioradialis reflex intensity grade: 2+, Right patellar reflex intensity grade: 2+ and Left patellar reflex intensity grade: 2+ Coordination: evuhzx-jx-arhu test normal Psych Appearance: grossly normal Quality Reporting (2019) Adult ([facility] 138/08/11/68) Smoking risk assessment performed?: Yes Patient Tobacco Use Status: Never used Tobacco Assessment & Plan Assessment & Plan (1) Parkinson's disease without dyskinesia: Comment: Initial Dx 2020. Today, pt reports hallucinations started at least > 1 year before onset of RUE tremor. This raises possibility of ? DLB process. Would need to use caution w/ neuroleptic agents. Code(s): G20.A1 - Parkinson's disease without dyskinesia, without mention of fluctuations Category: Medical (2) Hallucinations: Comment: visual, tactile, auditory Code(s): R44.3 - Hallucinations, unspecified Category: Medical (3) Dysphagia: Code(s): R13.10 - Dysphagia, unspecified Category: Medical (4) Family history of movement disorder: Code(s): Z82.0 - Family history of epilepsy and other diseases of the nervous system Category: Medical Plan Pt is advised to undergo: Brain MRI w/o to assess for secondary intracranial etiologies of progressing tremor, hallucinations, dysphagia. Pt will need pre-medication for anxiety. Genetic consult as there is strong family h/o movement d/o. Note pt and family have had onset of s/s after age 60, however pt and son would like to rule-out genetic etiology. SERVICE ESTABLISHMENT ATTENDANT eval & tx for dysphagia tx and PT eval & tx for gait- will request this be added to her current home VNA services through [facility]. Pt may benefit from f/u GI eval if SERVICE ESTABLISHMENT ATTENDANT ineffective. Trial Rytary 23.75-95mg, 2 caps po tid, may open cap and place in soft food of choice- info shared on how to optimally take levodopa. In hopes this reduces off-times w/o exacerbating hallucinations, nausea, and orthostatic lightheadedness. Will initiate prior-auth. Once Rytary available, stop CD-LD 25-100mg 1 tab tid. Discussed benefits of dopaminergic therapies, such as reduced tremor and improved motor symptoms. Discussed potential adverse effects of dopaminergic therapies, including but not limited to nausea/GI upset, orthostatic lightheadedness, sleepiness, hallucinations. Previous PD med trials- Amantadine- severe hallucinations/psychosis. PD med tx contraindications- CD-LD ER tab- as pt cannot swallow whole tabs. Advised to walk with walker and cane. Add 1-2 servings of electrolyte replacement beverage, such as Liquid Iv, GatorAde, per day- to reduce risk for orthostatic lightheadedness. Future considerations- low dose quetiapine or Nuplazid if hallucinations worsen. Information shared on Parkinson's/Movement disorder education and resources. Follow-up upon review of above, and in 3 months or sooner prn. Will plan do repeat movement exam w/ Dr Hunter at f/u visit. Orders: Orders MR head/brain wo con Today E11.9 - Type 2 diabetes mellitus without complications, I10 - Essential (primary) hypertension, R25.1 - Tremor, unspecified, R44.3 - Hallucinations, unspecified Referrals Genetics Referral G20.A1 - Parkinson's disease without dyskinesia, without mention of fluctuations, Z82.0 - Family history of epilepsy and other diseases of the nervous system [facility] Referral G20.A1 - Parkinson's disease without dyskinesia, without mention of fluctuations, R13.10 - Dysphagia, unspecified Medications: New carbidopa-levodopa 23.75-95 mg ER (Rytary) divide evenly over waking hours 2 caps PO TID 30 days 180 caps 3RF alprazolam 0.25 mg orally 1 tab 30 minutes prior to MRI, may repeat x's 1; 1 day 2 tabs 0RF Coding Level of Care Code New Pt Level 4 (82930) Diagnoses Parkinson's disease without dyskinesia G20.A1 Hallucinations R44.3 Dysphagia R13.10 Family history of movement disorder Z82.0
[2024-01-27 08:57] VITALS: BP 130/82; PULSE 71; O2SAT 98; BMI 23.8
== END 2024-01-27 10:37 | disposition home or self-care (01) ==
PROVIDERS: PCP Nurse Practitioner; Visit Provider Nurse Practitioner Family
DX: G20.A1 Parkinson's disease without dyskinesia, without mention of fluctuations (principal); R44.3 Hallucinations, unspecified; R13.10 Dysphagia, unspecified; Z82.0 Family history of epilepsy and other diseases of the nervous system
CPT/HCPCS: 99204

== ENCOUNTER → 2024-01-27 08:47 | Outpatient (BNVA) | payer OTHER, SELFPAY | PROVIDERS: PCP Nurse Practitioner; Visit Provider Nurse Practitioner Family | DX: G20.A1 Parkinson's disease without dyskinesia, without mention of fluctuations (principal); R44.3 Hallucinations, unspecified; R13.10 Dysphagia, unspecified; Z82.0 Family history of epilepsy and other diseases of the nervous system | CPT/HCPCS: 99202 ==

== ENCOUNTER → 2024-03-14 14:30 | Outpatient (BNV) | payer OTHER, SELFPAY | PROVIDERS: Visit Provider Radiology Diagnostic Radiology | DX: R13.10 Dysphagia, unspecified (principal) | CPT/HCPCS: 74230 ==

== ENCOUNTER 2024-03-14 14:31 | Outpatient (REF) | payer OTHER, SELFPAY ==
--- NOTE | ~2024-03-14 | FL_ITS ---
EXAMINATION: Modified Barium Swallow CLINICAL INFORMATION: Dysphagia COMPARISON: None TECHNIQUE: Modified barium swallow was performed under lateral fluoroscopy with patient in standing position. Barium mixed with solids and liquids of different consistencies was administered by the speech pathologist. Examination was recorded in the fluoroscopy suite. FINDINGS: Trace laryngeal penetration is seen with thin barium. No subglottic aspiration was observed. FLUOROSCOPY TIME: 2 minutes 3 seconds Number of Spot Images: N/A DOSE AREA PRODUCT: 699.2 uGy-m2 (microgray-meter squared) FL/FL barium swallow modified IMPRESSION: Trace laryngeal penetration is seen with thin barium. No subglottic aspiration was observed. Refer to the speech therapy report for further clarification This procedure was performed by Reynaldo Pina PA-C, and supervised by Dr. Pike Electronically signed by: Adiel Pike MD 03/15/2024 04:06 PM EDT
--- NOTE | 2024-03-15 13:47 | MHC.SL.IMP ---
Date of Plan of Treatment: 03/14/24 Onset of Symptoms/Illness: 10/24/22 Date Treatment Started: 03/14/24 Admitting Diagnosis: Dysphagia Primary Speech & Language Diagnosis: R13.12 Oropharyngeal Phase Dysphagia Reason for Today's Visit: 90338 Modified Barium Swallow Study Pre-evaluation Dietary Consistencies: Chopped/Advanced (NDD3) Pre-evaluation Liquid Consistency: Thin Pre-evaluation Medication Administration: Crushed with Puree Medical History: Modified Barium Swallow Study Fluoroscopic Evaluation of Swallowing Function CPT Code 51021 Evaluation Year: 2023 Reason for Study: Difficulty swallowing Referring Physician: Bre HARVEY Evaluating Clinician: Bridgett Agarwal MA, CCC-FURNITURE SHAMPOOER Study Number: 1 Patient Name: Anat Trivedi Status: Outpatient, Ambulatory/Assisted Age: 73 Gender: Female Medical History Medical History Abdominal cramping Cataracts, bilateral Constipation Depression Diabetes mellitus Essential hypertension GERD (gastroesophageal reflux disease) Leg edema Osteoarthritis Osteoporosis Parkinsons Pure hypercholesterolemia Tremors of nervous system Vaginal pruritus Surgical History H/O colonoscopy Current (pre-evaluation) Intake/Diet: Route: PO Diet Grade: ?Softer food, cut into small pieces? Liquid Consistencies: Thin Pre-Study Functional Oral Intake Scale (FOIS): 5- Total oral intake of multiple consistencies requiring special preparation Pain: None reported at time of study SUBJECTIVE: Patient is a 73 year old female referred for a modified barium swallow study (MBSS) by Bre HARVEY of [facility] in [place], [place]. Patient was accompanied to her appointment by her son and caregiver. Patient?s son recalls patient being seen for MBSS over the summer, but returns today at her neurologist?s request to have the exam repeated, as patient continues to have trouble swallowing. He reports patient is coughing on her saliva and has difficulty swallowing her medications. She takes them one at a time with liquid and is beginning to take larger pills crushed in applesauce. Patient has Parkinson ?s disease, per review of her electronic medical record, she is taking carbidopa/levodopa. History also includes GERD. Food and Liquid Trials: Oral Impairment: Lip Closure: Did not test Oral Impairment: Tongue Control During Bolus Hold: Did not test Oral Impairment: Bolus Preparation/Mastication: 2=Disorganized chewing/mashing with solid pieces of bolus Oral Impairment: Bolus Transport/Lingual Motion: 3=Repetitive/disorganized tongue motion Oral Impairment: Oral Residue: 2=Residue collection on oral structures Oral Impairment:Initiation of Pharyngeal Swallow: 2=Bolus head at posterior laryngeal surface of epiglottis Pharyngeal Impairment: Soft Palate Elevation: 0=No bolus between soft palate (SP)/pharyngeal wall (PW) Pharyngeal Impairment: Laryngeal Elevation: 1=Partial thyroid cartilage/arytenoids to epiglottic petiole movement Pharyngeal Impairment: Anterior Hyoid Excursion: 1=Partial anterior movement Pharyngeal Impairment: Epiglottic Movement: 1=Partial inversion Pharyngeal Impairment: Laryngeal Vestibular Closure:: 1=Incomplete: narrow column air/contrast in laryngeal vestibule Pharyngeal Impairment: Pharyngeal Stripping Wave: 0=Present: complete Pharyngeal Impairment: Pharyngeal Contraction: Did not test Pharyngeal Impairment: Pharyngoesophageal Segment Openin=Partial distention/partial duration: partial obstruction of flow Pharyngeal Impairment: Tongue Base (TB) Retraction: 2=Narrow column of contrast/air between TB and posterior PW Pharyngeal Impairment: Pharyngeal Residue: 1=Trace residue within or on pharyngeal structures Pharyngeal Impairment: Esophageal Clearance Upright Position: Did not test Impressions and Recommendations Clinical Observations: OBJECTIVE: Time-out: performed at 15:00 Evaluation Start: 14:30; Stop: 14:35 Patient Positioning: Seated 70-90 degrees Viewing Planes: LATERAL ONLY Contrast: MBSImP? Standardized Protocol using commercially prepared, standardized Barium viscosities, including: Varibar? THIN LIQUID (40% w/v, <15 cps) , Varibar? NECTAR (40% w/v, <150-450 cps) , Varibar? PUDDING (40% w/v, <9159-9783 cps) , 1/2 Shortbread Cookie (1 x1 x.25 ) MBSImP ID: [id number] MBSImP Results: Lip closure for intraoral bolus containment could not be assessed due to logistical reasons not related to physiologic impairment. Tongue control during bolus hold could not be assessed due to logistical reasons not related to physiologic impairment. Bolus preparation and mastication demonstrated disorganized chewing/mashing with solid pieces of the bolus unchewed. Bolus transport/lingual motion was with repetitive/disorganized motion of the tongue. Oral residue was a collection on oral structures. Initiation of the pharyngeal swallow occurred as the bolus head was at the posterior laryngeal surface of the epiglottis. Soft palate elevation resulted in no bolus between the soft palate and the pharyngeal wall. Laryngeal elevation was decreased, with partial superior movement of the thyroid cartilage/partial approximation of the arytenoids to the epiglottic petiole. Anterior hyoid excursion demonstrated partial anterior movement. Epiglottic movement resulted in partial inversion. Laryngeal vestibular closure was incomplete, with a narrow column of air/contrast noted within the laryngeal vestibule at the height of the swallow. Pharyngeal stripping wave was present and complete. Pharyngeal contraction could not be determined due to logistical reasons not related to physiologic impairment. Pharyngoesophageal segment opening demonstrated partial distension/partial duration, with partial obstruction of bolus flow. Tongue base retraction allowed a narrow column of contrast or air between the retracted tongue base and the posterior pharyngeal wall. Pharyngeal residue was a trace within or on pharyngeal structures. Esophageal clearance in the upright position could not be assessed due to logistical reasons not related to physiologic impairment. Oral Impairment Score: 9 (absence of score, component 1component 2) Pharyngeal Impairment Score: 7 (absence of score, component 13) Esophageal Impairment Score: --- (absence of score, component 17) Laryngeal Penetration and Aspiration: Penetration was observed in today's study. [place]-thick, Thin Contrast entered the airway, remained above the vocal folds, and were ejected from the airway. ASSESSMENT: This exam was conducted by the radiologist and the speech pathologist. Patient was seated upright in a chair for lateral view only. She was able to feed herself and trialed thin (individual straw sips), nectar thick (individual straw sips), puree, and regular solid (shortbread cookie) textures. Note disorganized anterior chewing pattern and repetitive tongue rocking motion. Mild to moderate delay in posterior lingual transport. Pharyngeal swallow trigger initiated when the bolus head had reached the posterior laryngeal surface of the epiglottis. Post-swallow, there was mild lingual residue which cleared with subsequent swallows. No nasopharyngeal reflux. Incomplete laryngeal elevation with incomplete epiglottic inversion. There was trace penetration above the vocal folds with sips of thin and nectar thick liquid intermittently, which spontaneously cleared. No evidence of aspiration during this exam. Trace residue on the tongue base, in the valleculae, and in the pyriforms. Patient was able to clear pharyngeal residue with dry swallows. Partial duration and partial obstruction of flow through the pharyngoesophageal segment opening. Liquid Intake Recommendation: Thin Liquid Intake Strategies: Small Sips, No Straws Dietary Recommendations: Chopped/Advanced (NDD3) Medication Administration: Crushed with Puree Please contact the pharmacy regarding appropriate crushable or liquid drug formulations that are available whenever modified delivery is recommended. Compensatory Strategies Recommended: Sitting Upright (90 deg), Double Swallow, No Straw, Small Bites and Sips, Alternate Liquids/Solids, Rate of Ingestion Change, Avoid Specific Foods Supervision during eating and or drinking: Total Supervision (1:1) Recommendation for Speech Therapy: NA:Typical Evaluation Text Comment: Intake Recommendations: Route: PO Diet Grade: Chopped/Advanced (National Dysphagia Diet Level III) Liquid Consistencies: Thin Post-Study Functional Oral Intake Scale (FOIS): 5- Total oral intake of multiple consistencies requiring special preparation There was no significant change from prior exam 11/25/23. Mild to moderate impairments of the oral phase, with disorganized chewing, tongue rocking movements, mild to moderate delay in oral transit, and presence of mild residuals. Note incomplete laryngeal elevation and partial epiglottic inversion. There was flash penetration of trace amount of contrast intermittently on trials of thin and nectar thick consistencies, which spontaneously cleared. No evidence of aspiration during this exam. Trace pharyngeal residue cleared with subsequent swallows. Therapy Recommendations: Given family reports of patient having difficulty chewing harder solids, FURNITURE SHAMPOOER continues to recommend CHOPPED/ADVANCED (NDD3) or alternately, a Soft and Easy to Chew diet with THIN liquids. The following strategies are also recommended to maximize safety: -Food to be soft and bite sized, moisten and soften with thick sauces and gravies -Avoid foods which are tough/hard to chew, sticky, or crunchy. Avoid mixed textures (i.e. foods with separation of thin liquid; thin broths with solid ingredients) -Cue patient to chew food well -Dry swallow between bites -Alternate bites of food with sips of liquid -Take small individual sips, avoid ?chugging? or gulping liquids -Liquids by teaspoon or cup, avoid the use of straws -Upright 90 degree position during PO intake Patient and her son were counselled on FURNITURE SHAMPOOER recommendations after the exam. They deny having questions at this time. Given the nature of underlying Parkinson?s disease, patient and her caregiver(s) are encouraged to continue monitoring her dysphagia. If there are any changes or worsening of symptoms, recommend patient to consult with PCP, at which point a re-assessment may be warranted. Clinician - Supplemental, Miscellaneous Communication: It is important to note MBSS objective studies are snapshots in time and Patient function might vary with factors such as time of day or concomitant medical conditions. For this reason, the final treatment plan for this patient should rest with their medical care team. Additional recommendations should be considered with the totality of the Patient in mind. Thank for the opportunity to participate in the care of this patient. If you have any questions about the content of this report, please contact the [facility] at [facility]. Education: Education regarding findings from today's study and plans for therapy were provided to Patient and family/caregiver through Verbal Instruction. Understanding was expressed by the Patient and family/caregiver. Marshmallow Maker Clinician/Clinical Fellow: No Supervisory Statement: N/A Speech Language Pathologist: Bridgett Agarwal M.A., [facility]-FURNITURE SHAMPOOER
== END 2024-03-14 14:32 | disposition home or self-care (01) ==
LOC: HO.XRAY 14:31
PROVIDERS: Visit Provider Nurse Practitioner Family
DX: R13.10 Dysphagia, unspecified (principal)
CPT/HCPCS: 74230; 92611

== ENCOUNTER → 2024-03-17 14:02 | Outpatient (BNV) | payer OTHER, SELFPAY | PROVIDERS: PCP Internal Medicine; Visit Provider Radiology Diagnostic Radiology | DX: R25.1 Tremor, unspecified (principal); R51.9 Headache, unspecified | CPT/HCPCS: 70551 ==

== ENCOUNTER 2024-03-17 14:11 | Outpatient (REF) | payer OTHER, SELFPAY ==
--- NOTE | ~2024-03-17 | MR_ITS ---
EXAMINATION: MR BRAIN WITHOUT CONTRAST CLINICAL INFORMATION: Tremor, unspecified. Headache. Weakness lower extremities. Vertigo/dizziness.. COMPARISON: MRI dated January 22, 2021. TECHNIQUE: MRI of the brain was obtained using routine sequences without contrast. FINDINGS: Submitted for interpretation on 04/20/2024. Limited by patient's motion artifact. No restricted diffusion. No acute intracranial hemorrhage, mass effect, midline shift, hydrocephalus or herniation. Gilman-white matter differentiation is normal. Bilateral multifocal patchy and confluent deep periventricular white matter hyperintense T2 FLAIR signal involving centrum semiovale and millan radiata. Prominent temporal horns of the lateral ventricles, bilaterally likely related to volume loss of the hippocampus. 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 Posterior cranial fossa contents demonstrated no acute intracranial hemorrhage or mass effect. Sellar/suprasellar region demonstrated no gross masses or signal abnormality. Craniocervical junction is intact and normal. Flow-void signal within the main cerebral vessels is normal. MR/MR head/brain wo con IMPRESSION: No acute brain abnormality. Small vessel occlusive disease. Concerning volume loss of the hippocampi , bilaterally. Electronically signed by: Wyatt Lopez MD 04/20/2024 08:06 AM EDT
== END 2024-03-17 14:12 | disposition home or self-care (01) ==
LOC: HO.MRI 14:11
PROVIDERS: PCP Internal Medicine; Visit Provider Nurse Practitioner Family
DX: R25.1 Tremor, unspecified (principal); R44.3 Hallucinations, unspecified; E11.9 Type 2 diabetes mellitus without complications; I10 Essential (primary) hypertension
CPT/HCPCS: 70551

== ENCOUNTER 2024-05-29 10:57 | Outpatient (REF) | payer OTHER, SELFPAY ==
[2024-05-29 12:46] LABS: Parathyroid Hormone Intact 94.9 pg/mL (8.7-77.1)
[2024-05-29 13:13] LABS: Alanine Aminotransferase 7 U/L (0-31); Albumin Level 4.5 g/dL (3.5-5.0); Alkaline Phosphatase 40 U/L (39-117); Anion Gap 14 (12-20); Aspartate Amino Transferase 31 U/L (5-31); Bilirubin Total 0.4 mg/dL (0.0-1.0); Blood Urea Nitrogen 12 mg/dL (9-16); Calcium 9.2 mg/dL (8.4-10.2); Carbon Dioxide 28 mmol/L (22-29); Chloride 105 mmol/L (96-108); Estimated Glomerular Filt Rate 55; Glucose Random 130 mg/dL (60-115); Potassium 4.2 mmol/L (3.3-5.1); Sodium 143 mmol/L (135-145); Total Protein 8.1 g/dL (6.5-8.0)
[2024-05-31 10:39] LABS: Prot Elec - Albumin 4.4 g/dL (3.8-4.8); Prot Elec - Alpha1 0.3 g/dL (0.2-0.3); Prot Elec - Alpha2 0.9 g/dL (0.5-0.9); Prot Elec - Beta 1 0.5 g/dL (0.4-0.6); Prot Elec - Beta 2 0.6 g/dL (0.2-0.5); Prot Elec - Gamma 1.3 g/dL (0.8-1.7); Prot Elec - Total Protein 7.8 g/dL (6.1-8.1)
[2024-06-03 15:14] LABS: Vitamin D 25-OH, D2 <4 ng/mL; Vitamin D 25-OH, D3 39 ng/mL; Vitamin D 25-OH, Total 39 ng/mL (30-100)
== END 2024-05-29 10:58 | disposition home or self-care (01) ==
LOC: HO.LAB 10:57
PROVIDERS: PCP Nurse Practitioner; Visit Provider Student in an Organized Health Care Education/Training Program
DX: M81.0 Age-related osteoporosis without current pathological fracture (principal)
CPT/HCPCS: 36415; 80053; 82306; 83970; 84165

== ENCOUNTER 2024-05-31 09:38 | Outpatient (AMB) | payer OTHER, SELFPAY ==
--- NOTE | 2024-05-31 09:52 | AM.OFFVISNUR ---
Intake Visit Reasons: osteoporosis/prolia injection/CM Allergies amlodipine Allergy (Intermediate, Verified 11/30/23 10:34) leg edema aspirin [ASPIRIN] Allergy (Intermediate, Verified 11/30/23 10:34) GERD gabapentin Allergy (Intermediate, Verified 11/30/23 10:34) rash lisinopril Allergy (Intermediate, Verified 11/30/23 10:34) angioedema naproxen [From NAPROSYN] Allergy (Intermediate, Verified 11/30/23 10:34) RASH/DIZZY omeprazole Allergy (Intermediate, Verified 11/30/23 10:34) tremors canagliflozin [Invokana] Adverse Reaction (Intermediate, Verified 11/30/23 10:34) rash glipizide Adverse Reaction (Intermediate, Verified 11/30/23 10:34) hypoglycemia amantadine Adverse Reaction (Intermediate, Uncoded 11/30/23 10:34) Hallucinations Office Meds Prolia 60 mg/mL subcutaneous syringe Performing Provider: Katherine Paul MD Performing Location: [facility] Rhe[facility]ology Administered by: Kimberly Lombardi RN on 05/31/24 09:52 Dose Route Admin Location Dispensed Lot Number Expiration Date [facility] Natural Resources Technician 60 mg subcut left upper arm 1 mL [id number] 12/17/26 17040-706-34 AMGEN Comments: Pt accompanied by olaf Grimaldo, who denied need for band log mill and carriage operator. Pt signed consent form. Pt tolerated injection well and denies any problems with the prolia injection in the past. Assessment & Plan Assessment & Plan Orders: Orders AMB Denosumab Injection Practice Supplied Today M81.0 - Age-related osteoporosis without current pathological fracture Medications: New Prolia (denosumab) 60 mg subcut ONCE 1 mL 0RF NS M81.0 - Age-related osteoporosis without current pathological fracture
== END 2024-05-31 09:50 | disposition home or self-care (01) ==
PROVIDERS: PCP Nurse Practitioner; Visit Provider Student in an Organized Health Care Education/Training Program
DX: M81.0 Age-related osteoporosis without current pathological fracture (principal)

== ENCOUNTER → 2024-05-31 09:38 | Outpatient (BNVA) | payer OTHER, SELFPAY | PROVIDERS: PCP Nurse Practitioner; Visit Provider Student in an Organized Health Care Education/Training Program | DX: M81.0 Age-related osteoporosis without current pathological fracture (principal) | CPT/HCPCS: 96372; J0897 ==

== ENCOUNTER 2024-11-02 10:53 | Outpatient (REF) | payer OTHER, SELFPAY ==
--- NOTE | ~2024-11-02 | XR_ITS ---
EXAMINATION: XR KNEE 1-2 VIEWS LEFT, XR TIBIA FIBULA 2 VIEWS LEFT HISTORY: INJURY, PAIN COMPARISON: Comparison is made with the prior examination of the left knee dated 05/19/2022. FINDINGS: AP and lateral views of the left knee and tibia and fibula are submitted. The bones are osteopenic. There is no fracture or dislocation. The joint spaces are preserved. The soft tissues are unremarkable. XR/XR knee LT 2V IMPRESSION: Osteopenia. Otherwise unremarkable examination of the left knee and tibia and fibula. Electronically signed by: Roderick Myrick MD 11/02/2024 12:55 PM EDT
--- NOTE | ~2024-11-02 | XR_ITS ---
EXAMINATION: XR KNEE 1-2 VIEWS LEFT, XR TIBIA FIBULA 2 VIEWS LEFT HISTORY: INJURY, PAIN COMPARISON: Comparison is made with the prior examination of the left knee dated 05/19/2022. FINDINGS: AP and lateral views of the left knee and tibia and fibula are submitted. The bones are osteopenic. There is no fracture or dislocation. The joint spaces are preserved. The soft tissues are unremarkable. XR/XR tibia fibula LT 2V IMPRESSION: Osteopenia. Otherwise unremarkable examination of the left knee and tibia and fibula. Electronically signed by: Roderick Myrick MD 11/02/2024 12:55 PM EDT
--- NOTE | ~2024-11-02 | XR_ITS ---
EXAMINATION: XR ELBOW 3 VIEWS LEFT HISTORY: INJURY, PAIN COMPARISON: There are no prior studies available for comparison. FINDINGS: Three views of the left elbow are submitted. The bones are osteopenic. There is no fracture or dislocation. The joint spaces are preserved. The soft tissues are unremarkable. There is no joint effusion. XR/XR elbow LT min 3V IMPRESSION: Osteopenia. No evidence of fracture of the left elbow. Electronically signed by: Roderick Myrick MD 11/02/2024 12:53 PM EDT
--- OUTSIDE RECORDS SUMMARY | 2024-11-02 11:25 | XMS_ITS ---
Author Organization [facility] Address [address] [place] [address] Care Team Providers Care Courtesy Clerk Name Role Phone Dr Wendy Silva Primary Care Provider Sagrario vailable Lucille Jaramillo Unavailable [phone] REASON FOR VISIT sane day cx 10/18/2024 Encounters Encounter Location Date Provider Diagnosis [facility] [address] [address] 10/18/2024 Lucille Jaramillo Plan Of Treatment Next Appt Details Provider Name:Lucille dickinson, 12/25/2024 10:00:00 AM, [address] [facility], [place], [address], Progress Notes * Mela TRIVEDIB: 0 (74 yo F)Acc No.[id number]:10/18/2024 Patient:?Anat TRIVEDI :1950???Age:74 Y???Sex:Female Address:[address] [place] [address] [address] , [place] [address] * true * Date:? Generated for Antonio charlton/Jim/eTransmitting on:?11/02/2024 11:24 AM EDT
--- OUTSIDE RECORDS SUMMARY | 2024-11-02 11:25 | XMS_ITS ---
Author Organization [facility] Address [address] [place] [address] Care Team Providers Care Deputy Sheriff Building Guard Name Role Phone Dr Wendy Silva Primary Care Provider Sagrario Lucille Grossman Unavailable [phone] Allergies Allergen (clinical drug ingredient) Drug/Non Drug Allergy documented on EMR Reaction Allergy Type Onset Date Status amlodipine Amlodipine Unknown Drug Allergy Activ e aspirin Aspirin Unknown Drug Allergy Active gabapentin Gabapentin Unknown Drug Allergy Activ e glipizide Glipizide Unknown Drug Allergy Active lisinopril Lisinopril Unknown Drug Allergy Activ e naproxen Naproxen Unknown Drug Allergy Active omeprazole Omeprazole Unknown Drug Allergy Activ e REASON FOR VISIT At Risk Footcare Medications Medication SIG (Take, Route, Frequency, Duration) Notes Start Date End Date Status Calcium Carb-Cholecalciferol 500-600 MG-UNIT 1 tablet with a meal Orally Once a day for 30 day(s) Active Hydrocortisone 1 % 1 application Externally Once a day Active Multivitamin - 1 tablet Orally Once a day for 30 day(s) Active Fish Oil 500 MG 1 capsule Orally Twi ce a day for 30 day(s) Active Theratears 0.25 % as directed Ophthalmic Active metFORMIN HCl 500 MG 1 tablet with a christine l Orally Once a day for 30 day(s) Active Extra Depth Orthopedic Shoes (1 Pair) with Customized Heat Molded Multidensity Innersoles (3 Pair) as directed Dx: NIDDM/Polyneuropathy (E11.42), Hammertoe Foot Deformity (M20.41,M20.42), Preulcerative Skin Lesion(s) (L85.1 10/06/2021 Not-Taking Sucralfate 1 GM/10ML 10 ml on an empty stomach Orally Twice a day for 30 day(s) Not-Taking Ezetimibe 10 MG 1 tablet Orally Once a day for 30 day(s) Active Prolia 60 MG/ML as directed Subcutaneous Active Acetaminophen 8 Hour 650 MG 2 tablets as needed Orally every 8 hrs Active Cetirizine HCl 10 MG 1 tablet Orally Onc e a day for 30 day(s) Not-Taking Metoclopramide HCl 5 MG as directed Oral ly Twice a day Not-Taking Carbidopa-Levodopa 25-100 MG 1 tablet as needed Orally Two times a Week for 30 day(s) Active Escitalopram Oxalate 5 MG 1 tablet Orall y Once a day for 30 day(s) Active Aspirin Not-Taking Famotidine 40 MG 1 tablet at bedtime Orally Once a day for 30 day(s) Active Social History Tobacco Use: Social History Observation Description Date Details (start date - stop date) Never Smoker NA - NA Tobacco Use/Smoking Question Answer Notes Are you a: nonsmoker Additional Findings: Tobacco Non-User Current no n-smoker Tobacco use other than smoking: Question Answer Notes Are you an other tobacco user? No Vital Signs Height 5ft2in in 08/15/2024 Weight 135 lbs 08/15/2024 BMI 24.69 kg/m2 08/15/2024 Blood pressure systolic 130 mm Hg 08/15/19 25 Blood pressure diastolic 71 mm Hg 025 Encounters Encounter Location Date Provider Diagnosis [facility] [address] [address] 08/15/2024 Lucille Jaramillo Type 2 diabetes mellitus with polyneuropathy E11.42 and Tinea unguium B35.1 Assessments Encounter Date Diagnosis (ICD Code) Assessment Notes Treatment Notes Treatment Clinical Notes Section Notes 08/15/2024 Type 2 diabetes mellitus with polyneuropathy (ICD-10 - E11.42) 08/15/2024 Tinea unguium (ICD-10 - B35.1) Plan Of Treatment Next Appt Details Follow Up: 3 Months, Reason: Provider Name:Lucille dickinson, 12/25/2024 10:00:00 AM, [address] [place] [address], [phone], Procedure Notes * Category Sub-Category Detail Notes Debride Nail 6-10 Nail debridement Due to the cl inical pathology outlined in the exam findings, performance of this nail treatment is medically necessary as its management by an unskilled/untrained nonprofessional would put this patients foot and overall health at risk. Therefore, debridement to affected nail(s), as described in exam ( TA, T1, T2, T3, T4, T5, T6, T7, T8, T9, ), was performed exclusively by the physician of record to reduce/remove overall nail length, girth, thickness, subungual debris, and necrotic tissue, by manual and/or electrical means through the use of a nail nipper and/or dremel-type tool grinder, to a more viable healthy nail plate or bed tissue 6-10 nails in total. Silver nitrate was used for any petechial bleeding as necessary. Definitive antifungal treatment options, both pharmaceutical and surgical, have been reviewed and discussed with the patient. The patient solely prefers the use of intermittent/as needed professional debridement services for their nail condition and understands the need for additional periodic treatments to maintain effectiveness in symptomatic relief - 50508 Progress Notes * Mela TRIVEDIB: 0 (73 yo F)Acc No.[id number]:08/15/2024 Progress Note Patient:?JANET Anat Provider:?Lucille Jaramillo DPM :1950???Age:73 Y???Sex:Female D ate:08/15/2024 Address:[address] [place], [place] [id number] Pcp:Dr Wendy Silva Subjective: * Chief Complaints: * ???At Risk Footcare * HPI: ???At Risk footcare:?Pt States Last PCP Visit:?Date?06/20/2024 * ROS:?General/Constitutional:?Nausea?admits.?Vomiting?denies.?Hunger Thirst?denies.?Loss appetite?admits.?Chills?denies.?Fatigue?admits.?Fever?denies.?Night Sweats?denies.?Unexplained weight loss?admits.?Unexplained weight gain?denies.?HEENTM:?Dentures?admits.?Dizziness?admits.?Glasses/contacts?denies.?Retinopathy?den ies.?Blurred/double vision?admits.?TMJ?denies.?Discharge/drainage?denies.?Implants?denies.?Sore throat?denies.?Dental implants?denies.?Hard of hearing ?denies.?Difficulty chewing/swallowing/speaking?denies.?Nose bleeds?denies.?Sore mouth?denies.?Respiratory:?On O xygen?denies.?Pneumonia/pleurisy?denies.?Bronchitis?denies.?Emphysema?denies.?Co ughing?denies.?Cough blood?denies.?Shortness of breath?admits.?Wheezing?denies.?Cardiovascular:?Pacemaker?denies.?MVP?denies.?WPW?denies.?CHF?denies.?Heart attack?denies.?Septal defect?denies.?Rapid beat?denies.?Chest pain ?denies.?Atrial Fib.?denies.?Murmur/Palpitations?denies.?Gastrointestinal:?Hemorrhoids?denies.?Stomach/Abdominal pain?admits.?Dark blood stool?denies.?Irritable bowel ?denies.?Constipation?denies.?Diarrhea?admits.?Hematology:?Swelling?denies.?Clots?denies.?Varicose Veins?admits.?Bruising?denies.?Bleeding problem?denies.?Genitourinary:?Blood urine?denies.?Frequent/Painfu/urination/bladder control?denies.?Kidney stones?denies.?Infection (UTI)?denies.?Nephropathy?denies.?sex trans dis (STD)?denies.?Prostate?denies.?Musculoskeletal:?Hammertoes?denies.?Bunions?denies.?Back Pain?admits.?Muscle Cramps/ Resting?admits.?Muscle cramps / walking?admits.?Generalized aches and pains?admits.?Weakness?admits.?Integ.:?Nieto?denies.?Scars?denies.?Corns/calluses?denies.?Ingrown nails?admits.?Painful nails?admits.?Open Sores?denies.?Rashes?admits.?Neurologic:?Difficulty sleeping?admits.?Brain disorder?denies.?Numbness?admits.?Balance t rouble?admits.?Confusion?admits.?Fainting/blackouts?denies.?Tingling?admits.?Kaiser mors?admits.? * Medical History:? * Surgical History:?Denies Pas t Surgical History * Hospitalization/Major Diagno stic Procedure:?Denies Past Hospitalization * Family History:?Mother: dece ased, dementia.?Father: .?Siblings: dementia.? * Social History:?Tobacco Use:?Tobacco Use/Smoking?Are you a:?nonsmoker ?Additional Findings: Tobacco Non-User?Current non-smoker ?Tobacco use other than smoking?Are you an other tobacco user??No ???Miscellaneous:?Caffeine: no, 1-2 cups per day. ?Children: yes. ?Exercise: no. ?Marital status: single. 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 * Medications:?TakingCarbidopa -Levodopa 25-100 MG Tablet 1 tablet as needed Orally Two times a Week Escitalopram Oxalate 5 MG Tablet 1 tablet Orally Once a day Prolia 60 MG/ML Solution Prefilled Syringe as directed Subcutaneous metFORMIN HCl 500 MG Tablet 1 tablet with a meal Orally Once a day Ezetimibe 10 MG Tablet 1 tablet Orally Once a day Fish Oil 500 MG Capsule 1 capsule Orally Twice a day Theratears 0.25 % Solution as directed Ophthalmic Multivitamin - Tablet 1 tablet Orally Once a day Calcium Carb-Cholecalciferol 500-600 MG-UNIT Tablet Chewable 1 tablet with a meal Orally Once a day Hydrocortisone 1 % Cream 1 application Externally Once a day Famotidine 40 MG Tablet 1 tablet at bedtime Orally Once a day Acetaminophen 8 Hour 650 MG Tablet Extended Release 2 tablets as needed Orally every 8 hrs Taking Carbidopa- Levodopa 25-100 MG Tablet 1 tablet as needed Orally Two times a Week Taking Escitalopram Oxalate 5 MG Tablet 1 tablet Orally Once a day Taking Prolia 60 MG/ML Solution Prefilled Syringe as directed Subcutaneous Taking metFORMIN HCl 500 MG Tablet 1 tablet with a meal Orally Once a day Taking Ezetimibe 10 MG Tablet 1 tablet Orally Once a day Taking Fish Oil 500 MG Capsule 1 capsule Orally Twice a day Taking Theratears 0.25 % Solution as directed Ophthalmic Taking Multivitamin - Tablet 1 tablet Orally Once a day Taking Calcium Carb-Cholecalciferol 500-600 MG-UNIT Tablet Chewable 1 tablet with a meal Orally Once a day Taking Hydrocortisone 1 % Cream 1 application Externally Once a day Taking Famotidine 40 MG Tablet 1 tablet at bedtime Orally Once a day Taking Acetaminophen 8 Hour 650 MG Tablet Extended Release 2 tablets as needed Orally every 8 hrs Not-Taking/PRNExtra Depth Orthopedic Shoes (1 Pair) with Customized Heat Molded Multidensity Innersoles (3 Pair) as directed Dx: NIDDM/Polyneuropathy (E11.42), Hammertoe Foot Deformity (M20.41,M20.42), Preulcerative Skin Lesion(s) (L85.1 Sucralfate 1 GM/10ML Suspension 10 ml on an empty stomach Orally Twice a day Aspirin Cetirizine HCl 10 MG Tablet 1 tablet Orally Once a day Metoclopramide HCl 5 MG Tablet as directed Orally Twice a day Medication List reviewed and reconciled with the patientNot-Taking/PRN Extra Depth Orthopedic Shoes (1 Pair) with Customized Heat Molded Multidensity Innersoles (3 Pair) as directed Dx: NIDDM/Polyneuropathy (E11.42), Hammertoe Foot Deformity (M20.41,M20.42), Preulcerative Skin Lesion(s) (L85.1 Not-Taking/PRN Sucralfate 1 GM/10ML Suspension 10 ml on an empty stomach Orally Twice a day Not-Taking/PRN Aspirin Not-Taking/PRN Cetirizine HCl 10 MG Tablet 1 tablet Orally Once a day Not-Taking/PRN Metoclopramide HCl 5 MG Tablet as directed Orally Twice a day Medication List reviewed and reconciled with the patient * Allergies:?AmlodipineAspirinGabapentinLisinoprilNaproxenOmeprazoleGlipizideyes[A llergies Verified] Objective: * Vitals:?Ht: 5ft2in, Wt:135, BMI:24.69, Shoe size: 8-8.5, BP:130/71mm Hg, BS: not taken, Ht-cm: 157.48 cm, Wt-k.24 kg. * ???Past Orders: ???Lab:HEMOGLOBIN A1C (GLYCO HEMOGLOBIN) (Order Date - 06/20/2024) (Collection Date & Time - 06/20/2024 11:30 AM) ? Value Reference Range ?HEMOGLOBIN A1C % (HH) 6.4 * Examination: ???Ophthalmology Referral: ?DIABETES EYE EXAM?Procedure Performed:?Yes ?Date of Exam Performed?04/20/2024 ?Findings of Diabetic Eye Exam:?no retinopathy?Neurological: ?SENSORY:?Neurological exam demonstrates, reduced light touch sensation, reduced sharp/dull discrimination , reduced vibration sensation, in a stocking fashion, B/L, 5.07 monofilament test performed at plantar aspects of 5 varied sites per foot shows sensation, reduced, B/L.?Nails: ?NAILS are:?Elongated, overgrown, dystrophic, lytic, greater than 3mm thick, discolored and friable with crumbly malodorous subungual debris, TA, T1, T2, T3, T4, T5, T6, T7, T8, T9.?General Examination: ?FOOT EXAM:?Lower Extremity Neurological Exam performed:?Yes ?Visual exam of foot performed:?Yes ?Date?08/15/2024 ?Footwear Evaluation?Footwear Evaluation performed:?Yes?Orthopedic: ?FOOTWEAR:?fair condition.?Vascular: ?DP PULSES (B):?3/4, B/L.?PT PULSES (B):?3/4, B/L.?CAPILLARY FILL TIME:?immediate, all digits, B/L.? Assessment: * Assessment: 1.?Type 2 diabetes mellitus with polyneuropathy - E11.42 (Primary)???2.?Tinea unguium - B35.1??? Plan: * Treatment: * Procedures:?Debride Nail 6-10:?Nail debridement?Due to the clinical pathology outlined in the exam findings, performance of this nail treatment is medically necessary as its management by an unskilled/untrained nonprofessional would put this patients foot and overall health at risk. Therefore, debridement to affected nail(s), as described in exam ( TA, T1, T2, T3, T4, T5, T6, T7, T8, T9, ), was performed exclusively by the physician of record to reduce/remove overall nail length, girth, thickness, subungual debris, and necrotic tissue, by manual and/or electrical means through the use of a nail nipper and/or dremel-type tool grinder, to a more viable healthy nail plate or bed tissue 6- 10 nails in total. Silver nitrate was used for any petechial bleeding as necessary. Definitive antifungal treatment options, both pharmaceutical and surgical, have been reviewed and discussed with the patient. The patient solely prefers the use of intermittent/as needed professional debridement services for their nail condition and understands the need for additional periodic treatments to maintain effectiveness in symptomatic relief - 86051.? * Procedure Codes:?92605 DEBRI DE NAIL, 6 OR MORE, Modifiers: XS * Preventive Medicine:? ??Screening/Special Tests:?Fall Risk?Assessment:?Performed ?Screening:?No falls in the past year ?FALLS: Screening for Future Fall Risk?Have you had two or more falls in the past year??No ?Have you had any falls with injury in the past year??No * Follow Up:?3 Months * Images: * Sign off status: Completed true * Provider:?Lucille Jaramillo DPM Date:? Generated for Antonio charlton/Jim/Edilberto on:?11/02/2024 11:24 AM EDT History and Physical Notes * HPI (History of Present Illness) Category Sub-Category Detail Notes Category Not es At Risk footcare Pt States Last PCP Visit: Date: Examination Category Sub-Category Detail Notes Category Not es Neurological SENSORY: Neurological exa m demonstrates, reduced light touch sensation, reduced sharp/dull discrimination , reduced vibration sensation, in a stocking fashion, B/L, 5.07 monofilament test performed at plantar aspects of 5 varied sites per foot shows sensation, reduced, B/L Orthopedic FOOTWEAR EVALUATION: fair condition General Examination FOOT EXAM: Lower Extrem ity Neurological Exam performed:: Yes Visual exam of foot performed:: Yes Date: 08/15/2024 Footwear Evaluation Footwear Evaluation performe d:: Yes Ophthalmology Referral DIABETES EYE EXAM Procedure Perform ed:: Yes ?Date of Exam Performed: 04/20/2024 Findings of Diabetic Eye Exam:: no retin opathy Vascular DP PULSES (B): 3/4, B/L PT PULSES (B): 3/4, B/L CAPILLARY FILL TIME: immediate, all digi ts, B/L Nails NAILS are: Elongated, overg rown, dystrophic, lytic, greater than 3mm thick, discolored and friable with crumbly malodorous subungual debris, TA, T1, T2, T3, T4, T5, T6, T7, T8, T9
--- OUTSIDE RECORDS SUMMARY | 2024-11-02 11:25 | XMS_ITS ---
Author Organization [facility] Address [address] [place] [address] Care Team Providers Care Inker Machine Name Role Phone Dr Wendy Silva Primary Care Provider Sagrario vailable Lucille Jaramillo Unavailable [phone] Encounters Encounter Location Date Provider Diagnosis [address] [address] 10/18/2024 Lucille Jaramillo Plan Of Treatment Next Appt Details Provider Name:Lucille dickinson, 12/25/2024 10:00:00 AM, [address] [facility], [place], [address], Progress Notes * Juan TRIVEDIaDOB: 0 (74 yo F)Acc No.[id number]:10/18/2024 Progress Note Patient:?Anat TRIVEDI Provider:?Lucille Jaramillo DPM :1950???Age:74 Y???Sex:Female D ate:10/18/2024 Address:[address] [place] [address] Pcp:Dr Wendy Silva Subjective: * Chief Complaints: * ??? * Medical History:? Objective: * Vitals:? Assessment: Plan: * Treatment: * Images: * The named appointment provid er may or may not be the originator of this progress note, and it is not deemed complete until electronically signed by the appointment provider. Sign off status: Pending * Provider:?Lucille Jaramillo DPM Date:?06/2024 Generated for Antonio charlton/Jim/Edilberto on:?11/02/2024 11:25 AM EDT
--- OUTSIDE RECORDS SUMMARY | 2024-11-02 11:25 | XMS_ITS | Patient Health Record ---
Author Organization [facility] Address [address] [facility] [place] [address] Care Team Providers Care Goggles Assembler Name Role Phone Dr Wendy Silva Primary Care Provider Lucille Esteves Unavailable [phone] Allergies Allergen (clinical drug ingredient) Drug/Non Drug Allergy documented on EMR Reaction Allergy Type Onset Date Status amlodipine Amlodipine Unknown Drug Allergy Activ e aspirin Aspirin Unknown Drug Allergy Active gabapentin Gabapentin Unknown Drug Allergy Activ e glipizide Glipizide Unknown Drug Allergy Active lisinopril Lisinopril Unknown Drug Allergy Activ e naproxen Naproxen Unknown Drug Allergy Active omeprazole Omeprazole Unknown Drug Allergy Activ e Results Component Value Reference Range Notes HEMOGLOBIN A1C (GLYCOHEMOGLO BIN) Reviewed date:08/15/2024 11:31:36 AM Interpretation: Performing Lab: Notes/Report: HEMOGLOBIN A1C % (HH) 6.4 Reason For Referral No Information Medications Medication SIG (Take, Route, Frequency, Duration) Notes Start Date End Date Status Multivitamin - 1 tablet Orally Once a day for 30 day(s) Active metFORMIN HCl 500 MG 1 tablet with a christine l Orally Once a day for 30 day(s) Active Acetaminophen 8 Hour 650 MG 2 tablets as needed Orally every 8 hrs Active Extra Depth Orthopedic Shoes (1 Pair) with Customized Heat Molded Multidensity Innersoles (3 Pair) as directed Dx: NIDDM/Polyneuropathy (E11.42), Hammertoe Foot Deformity (M20.41,M20.42), Preulcerative Skin Lesion(s) (L85.1 10/06/2021 Not-Taking Cetirizine HCl 10 MG 1 tablet Orally Onc e a day for 30 day(s) Not-Taking Sucralfate 1 GM/10ML 10 ml on an empty stomach Orally Twice a day for 30 day(s) Not-Taking Metoclopramide HCl 5 MG as directed Oral ly Twice a day Not-Taking Ezetimibe 10 MG 1 tablet Orally Once a day for 30 day(s) Active Calcium Carb-Cholecalciferol 500-600 MG-UNIT 1 tablet with a meal Orally Once a day for 30 day(s) Active Carbidopa-Levodopa 25-100 MG 1 tablet as needed Orally Two times a Week for 30 day(s) Active Hydrocortisone 1 % 1 application Externally Once a day Active Escitalopram Oxalate 5 MG 1 tablet Orall y Once a day for 30 day(s) Active Aspirin Not-Taking Prolia 60 MG/ML as directed Subcutaneous Active Famotidine 40 MG 1 tablet at bedtime Orally Once a day for 30 day(s) Active Fish Oil 500 MG 1 capsule Orally Twi ce a day for 30 day(s) Active Theratears 0.25 % as directed Ophthalmic Active Immunizations Vaccine Route Administration Date Status Comme nts Influenza Unknown 03/21/2023 Administered Social History Tobacco Use: Social History Observation Description Date Details (start date - stop date) Never Smoker NA - NA Tobacco Use/Smoking Question Answer Notes Are you a: nonsmoker Additional Findings: Tobacco Non-User Current no n-smoker Alcohol Screen Question Answer Notes Did you have a drink containing alcohol in the p ast year? No Points 0 Interpretation Negative Tobacco use other than smoking: Question Answer Notes Are you an other tobacco user? No Problems Problem Type SNOMED Code ICD Code Onset Dates Problem Status W/U Status Risk Notes Problem 517751210 Hammer toe of le ft foot (M20.42) Active confirmed Problem 69051689 Type 2 diabetes mellitus with polyneuropathy (E11.42) Active confirmed Vital Signs Blood pressure diastolic 71 mm Hg 08/15/2024 Height 5ft2in in 08/15/2024 Blood pressure systolic 130 mm Hg 08/15/2024 Weight 135 lbs 08/15/2024 BMI 24.69 kg/m2 08/15/2024 Encounters Encounter Location Date Provider Diagnosis [facility] [address] [place] [address] 12/30/2023 Lucille Jaramillo Type 2 diabetes mellitus with polyneuropathy E11.42 and Tinea unguium B35.1 [facility] [address] [place] [address] 03/16/2024 Lucille Jaramillo Type 2 diabetes mellitus with polyneuropathy E11.42 and Tinea unguium B35.[address] [address] 06/06/2024 Lucille Jaramillo Type 2 diabetes mellitus with polyneuropathy E11.42 and Tinea unguium B35.[address] [address] 08/15/2024 Lucille Jaramillo Type 2 diabetes mellitus with polyneuropathy E11.42 and Tinea unguium B35.1 [facility] [address] [facility] [address] [place] [address] 10/18/2024 Lucille Jaramillo Assessments Encounter Date Diagnosis (ICD Code) Assessment Notes Treatment Notes Treatment Clinical Notes Section Notes 12/30/2023 Type 2 diabetes mellitus with polyneuropathy (ICD-10 - E11.42) 03/16/2024 Type 2 diabetes mellitus with polyneuropathy (ICD-10 - E11.42) 06/06/2024 Type 2 diabetes mellitus with polyneuropathy (ICD-10 - E11.42) 08/15/2024 Type 2 diabetes mellitus with polyneuropathy (ICD-10 - E11.42) 08/15/2024 Tinea unguium (ICD-10 - B35.1) 06/06/2024 Tinea unguium (ICD-10 - B35.1) 03/16/2024 Tinea unguium (ICD-10 - B35.1) 12/30/2023 Tinea unguium (ICD-10 - B35.1) Plan Of Treatment Next Appt Details Provider Name:Lucille dickinson, 12/25/2024 10:00:00 AM, [address] [place] [address], [phone], Insurance Providers Payer Name Payer Address Payer Phone Subscriber Number Group Number Insured Name Patient Relationship to Insured Coverage Start Date Coverage End Date [facility] [address] [place] [phone] [id number] Anat Trivedi Self - patient is the insured Medical (General) History Medical History History ICD Code Diabetic Parkinsons disease Chronic Kidney Disease Hypertension Arthritis Reflux ( GERD) Osteoporosis Cataracts covid-19 Pyelonephritis Depression Gastroparesis Hypercholesterolemia osteoarthritis Anxiety Back,Hip,and Knee pain Dementia Fibromyalgia Headaches/Migraines Surgical History Surgery Date(Month/Year)
== END 2024-11-02 10:54 | disposition home or self-care (01) ==
LOC: HO.XRAY 10:53
PROVIDERS: PCP Registered Nurse; Visit Provider Registered Nurse
DX: M79.605 Pain in left leg (principal); S59.902D Unspecified injury of left elbow, subsequent encounter; S89.92XD Unspecified injury of left lower leg, subsequent encounter; R29.6 Repeated falls
CPT/HCPCS: 73080; 73560; 73590

== ENCOUNTER → 2024-11-02 10:59 | Outpatient (BNV) | payer OTHER, SELFPAY | PROVIDERS: PCP Registered Nurse; Visit Provider Radiology Diagnostic Radiology | DX: M85.822 Other specified disorders of bone density and structure, left upper arm (principal); M85.862 Other specified disorders of bone density and structure, left lower leg | CPT/HCPCS: 73080; 73560; 73590 ==

== ENCOUNTER 2024-11-30 09:17 | Outpatient (REF) | payer OTHER, SELFPAY ==
--- OUTSIDE RECORDS SUMMARY | 2024-11-30 09:41 | XMS_ITS | Patient Health Record ---
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 Role Phone Dr Wendy Silva Primary Care Provider Lucille Esteves Unavailable [phone] Allergies Allergen (clinical drug ingredient) Drug/Non Drug [...] Problem Status W/U Status Risk Notes Problem [id number] Hammer toe of le ft foot (M20.42) Active confirmed Problem [id number] Type 2 diabetes mellitus with polyneuropathy (E11.42) Active confirmed Vital Signs Blood pressure diastolic 71 mm Hg 08/15/2024 Height 5ft2in in 08/15/2024 Blood pressure systolic 130 mm Hg 08/15/2024 Weight 135 lbs 08/15/2024 BMI 24.69 kg/m2 08/15/2024 Encounters Encounter Location Date Provider Diagnosis [facility] [address] [place] [address] 12/30/2023 Lucille Jaramillo Type 2 diabetes mellitus with polyneuropathy E11.42 and Tinea unguium B35.1 [facility] [address] [place] [address] 03/16/2024 Lucille Jaramillo Type 2 diabetes mellitus with polyneuropathy E11.42 and Tinea unguium B35.[address] [address] 06/06/2024 Lucille Jaramillo Type 2 diabetes mellitus with polyneuropathy E11.42 and Tinea unguium B35.[address] [address] 08/15/2024 Lucille Jaramillo Type 2 diabetes mellitus with polyneuropathy E11.42 and Tinea unguium B35.1 [facility] [address] [facility] [address] [place] [address] 10/18/2024 Lucille Jaramillo Assessments Encounter Date Diagnosis [...] Details Provider Name:Lucille dickinson, 12/25/2024 10:00:00 AM, [address] [place] [address], [phone], Insurance Providers Payer Name Payer Address Payer Phone Subscriber Number Group Number Insured Name Patient Relationship to Insured Coverage Start Date Coverage End Date [facility] [address] [place] [phone] [id number] Anat Trivedi Self - patient is the insured Medical (General) History Medical History History ICD Code Diabetic Parkinsons disease Chronic Kidney Disease Hypertension Arthritis Reflux ( GERD) Osteoporosis Cataracts covid-19 Pyelonephritis Depression Gastroparesis Hypercholesterolemia osteoarthritis Anxiety Back,Hip,and Knee pain Dementia Fibromyalgia Headaches/Migraines Surgical History Surgery Date(Month/Year)
[2024-11-30 10:56] LABS: Alanine Aminotransferase < 6 U/L (0-31); Albumin Level 4.5 g/dL (3.5-5.0); Alkaline Phosphatase 41 U/L (39-117); Anion Gap 9 (12-20); Aspartate Amino Transferase 29 U/L (5-31); Bilirubin Total 0.4 mg/dL (0.0-1.0); Blood Urea Nitrogen 18 mg/dL (9-16); Calcium 9.5 mg/dL (8.4-10.2); Carbon Dioxide 31 mmol/L (22-29); Chloride 105 mmol/L (96-108); Estimated Glomerular Filt Rate > 60; Glucose Random 129 mg/dL (60-115); Potassium 3.8 mmol/L (3.3-5.1); Sodium 141 mmol/L (135-145); Total Protein 7.8 g/dL (6.5-8.0)
[2024-12-04 16:48] LABS: Vitamin D 25-OH, D2 <4 ng/mL; Vitamin D 25-OH, D3 44 ng/mL; Vitamin D 25-OH, Total 44 ng/mL (30-100)
[2024-12-05 09:19] LABS: IgA 450 mg/dL (70-320); IgG 1460 mg/dL (600-1540); IgM 59 mg/dL (50-300)
== END 2024-11-30 09:18 | disposition home or self-care (01) ==
LOC: HO.LAB 09:17
PROVIDERS: PCP Registered Nurse; Visit Provider Student in an Organized Health Care Education/Training Program
DX: N81.0 Urethrocele (principal); R77.8 Other specified abnormalities of plasma proteins; E55.9 Vitamin D deficiency, unspecified
CPT/HCPCS: 36415; 80053; 82306; 82784; 86334

== ENCOUNTER 2024-12-12 10:47 | Outpatient (AMB) | payer OTHER, SELFPAY ==
--- NOTE | 2024-12-12 10:57 | AM.OFFVISNUR ---
Intake Visit Reasons: prolia injection Allergies amlodipine Allergy (Intermediate, Verified 11/30/23 10:34) leg edema aspirin (ASPIRIN) Allergy (Intermediate, Verified 11/30/23 10:34) GERD gabapentin Allergy (Intermediate, Verified 11/30/23 10:34) rash lisinopril Allergy (Intermediate, Verified 11/30/23 10:34) angioedema naproxen (From NAPROSYN) Allergy (Intermediate, Verified 11/30/23 10:34) RASH/DIZZY omeprazole Allergy (Intermediate, Verified 11/30/23 10:34) tremors canagliflozin (Invokana) Adverse Reaction (Intermediate, Verified 11/30/23 10:34) rash glipizide Adverse Reaction (Intermediate, Verified 11/30/23 10:34) hypoglycemia amantadine Adverse Reaction (Intermediate, Uncoded 11/30/23 10:34) Hallucinations Office Meds Prolia 60 mg/mL subcutaneous syringe Performing Provider: Katherine Paul MD Performing Location: [facility] Administered by: Jasmine Hart RN on 12/12/24 10:58 Dose Route Admin Location Dispensed Lot Number Expiration Date ND Hay Buckler 60 mg subcut right upper arm 1 mL [id number] 02/17/27 03464-355-33 [facility] Total Dispensed Waste 1 mL 0 % Comments: Patient denies any adverse reactions to previous injections. Patient tolerated procedure well. Assessment & Plan Assessment & Plan Orders: Orders AMB Denosumab Injection Practice Supplied Today M81.0 - Age-related osteoporosis without current pathological fracture Coding
--- OUTSIDE RECORDS SUMMARY | 2024-12-12 12:45 | XMS_ITS | Patient Health Record ---
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
== END 2024-12-12 10:59 | disposition home or self-care (01) ==
PROVIDERS: PCP Registered Nurse; Visit Provider Student in an Organized Health Care Education/Training Program
DX: M81.0 Age-related osteoporosis without current pathological fracture (principal)

== ENCOUNTER → 2024-12-12 10:47 | Outpatient (BNVA) | payer OTHER, SELFPAY | PROVIDERS: PCP Registered Nurse; Visit Provider Student in an Organized Health Care Education/Training Program | DX: M81.0 Age-related osteoporosis without current pathological fracture (principal) | CPT/HCPCS: 96372; J0897 ==

== ENCOUNTER 2025-02-19 15:06 | Outpatient (AMB) | payer OTHER, SELFPAY ==
--- NOTE | 2025-02-19 15:18 | A.OFFVIS_ITS ---
Vital Signs 02/19/25 15:19 Height 5 ft 2 in Weight 114 lb 13.773 oz BMI 21.0 BP 100/64 Blood Pressure Location Lt brachial Position Sitting Pulse 92 Pulse Source Pulse Oximeter Pulse Oximetry (%) 96 Oxygen Delivery Method Room Air Intake Visit Reasons: osteoporosis Intake Note: Patient presents for follow up on osteoporosis. 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 Offered & Declined Accompanied by: Son Allergies amlodipine Allergy (Intermediate, Verified 02/19/25 15:24) leg edema aspirin (ASPIRIN) Allergy (Intermediate, Verified 02/19/25 15:24) GERD gabapentin Allergy (Intermediate, Verified 02/19/25 15:24) rash lisinopril Allergy (Intermediate, Verified 02/19/25 15:24) angioedema naproxen (From NAPROSYN) Allergy (Intermediate, Verified 02/19/25 15:24) RASH/DIZZY omeprazole Allergy (Intermediate, Verified 02/19/25 15:24) tremors canagliflozin (Invokana) Adverse Reaction (Intermediate, Verified 02/19/25 15:24) rash glipizide Adverse Reaction (Intermediate, Verified 02/19/25 15:24) hypoglycemia amantadine Adverse Reaction (Intermediate, Uncoded 02/19/25 15:24) Hallucinations Medication List - Last Reconciled 02/19/25 by Katherine Paul MD acetaminophen 500 mg PO QID PRN alprazolam 0.25 mg orally 1 tab 30 minutes prior to MRI, may repeat x's 1; 1 day bacitracin-polymyxin B 500-10,000 unit/gram 1 appl ophthalmic (eye) Q6H 7 days blood pressure monitor As directed blood sugar diagnostic (FreeStyle Test strips) Use 1 test strip once a day calcium carbonate-vitamin D3 500 mg-15 mcg (600 unit) 1 tab PO .twice a day 90 days carbidopa-levodopa 23.75-95 mg ER (Rytary) 2 caps PO TID 30 days carbidopa-levodopa 25-100 mg 1 tab PO TID 30 days denosumab (Prolia) 60 mg subcut [id number] dicyclomine 10 mg PO BID PRN escitalopram oxalate 10 mg PO DAILY ezetimibe 10 mg PO DAILY 90 days hydroxyzine HCl 10 mg PO BEDTIME metformin ER 2,000 mg (4 x 500 mg) PO DAILY omega [id number]-igh-[id number]-fish oil 60-90-500 mg caps PO trazodone mg PO HPI Comments Details: Patient is a 74-year-old female with Parkinson's disease,, depression, hyperlipidemia, diabetes complicated by gastroparesis, polyarticular osteoarthritis and osteoporosis here today for follow up Interval History: Patient last seen 11/30/23 with Albertina Rosales - On prolia 60mg SC every 6 months, vit D, Topical diclofenac - No interim fractures - C/o occasional bilateral knee pain with occasional swelling francia on the right. Responds to topical diclofenac Rheumatologic History: Fosamax 09/2018-04/2019-discontinued due to severe GERD. Prolia -09/2019 to present Current Rheumatology Medication(s): Prolia 60mg SC every 6 months Vit D PFSH Medical History Abdominal cramping Cataracts, bilateral Constipation Depression Diabetes mellitus Essential hypertension GERD (gastroesophageal reflux disease) Leg edema Osteoarthritis Osteoporosis Parkinsons Pure hypercholesterolemia Tremors of nervous system Vaginal pruritus Surgical History H/O colonoscopy Family History Father Leukemia Mother Chronic mental illness Alzheimers disease Sister Breast cancer Sister Leukemia Sister Esophageal cancer Maternal Grandmother Stomach cancer Family/Other Chronic mental illness Maternal Grandfather Myocardial infarction Sister Alzheimers disease Social History Household Members: None Housing: Apartment Alcohol intake: never Patient Tobacco Use Status: Never used Tobacco e-Cigarette/Vaping Use: Never Used Second Hand Smoke Exposure: No Advance Directives Date on File: 09/23/20 service: No Current occupational status: disabled Review of Systems Const Details: Review of Systems Constitutional: Denies fever, chills, weight loss ENT: Denies vision changes, eye pain or eye redness, dental caries, dry mouth GI: Denies nausea, vomiting, diarrhea, abdominal pain, change in BM Pulm: Denies SOB, WOODRUFF, hemoptysis, wheezing Cards: Denies chest pain, palpitations Skin: Denies Raynaud's, rash, nail changes, photosensitivity, 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 Well appearing and in no apparent painful distress MSK Hands * Right Hand: Able to make a fist. No swelling or tenderness to palpation of the MCPs, PIPs or DIPs. * Left Hand: Able to make a fist. No swelling or tenderness to palpation of the MCPs, PIPs or DIPs. * Herbedens nodes noted bilaterally Wrists * Right Wrist: Full ROM to flexion and extension. No swelling or TTP * Left Wrist: Full ROM to flexion and extension. No swelling or TTP Elbows * Right Elbow: Full ROM. No swelling or TTP. No TTP of the medial epicondyle. No TTP of the lateral epicondyle * Left Elbow: Full ROM. No swelling or TTP. No TTP of the medial epicondyle. No TTP of the lateral epicondyle Shoulders * Right shoulder: Decreased ROM. No swelling noted. No TTP of the AC joint. No TTP of the subacromial bursa. No TTP of the posterior shoulder * Left shoulder: Decreased ROM. No swelling noted. No TTP of the AC joint. No TTP of the subacromial bursa. No TTP of the posterior shoulder Knees * Right knee: Decreased ROM. Swelling and warmth noted. No TTP of the knee joint line. No TTP of pes anserine bursa * Left knee: Decreased ROM. No swelling noted. No TTP of the knee joint line. No TTP of pes anserine bursa. Ankles * Right ankle: Good ankle dorsiflexion and plantar flexion. No swelling. No TTP of the ankle joint * Left ankle: Good ankle dorsiflexion and plantar flexion. No swelling. No TTP of the ankle joint Feet * Right foot: Negative squeeze test * Left foot: Negative squeeze test Vital Signs: Last Vital Signs Pulse 92 02/19/25 15:19 BP 100/64 02/19/25 15:19 Pulse Ox 96 02/19/25 15:19 Oxygen Delivery Method Room Air 02/19/25 15:19 BMI result Body Mass Index 21.0 Results Reviewed Results Reviewed: Laboratory Tests 11/30/24 09:32 Sodium 141 Potassium 3.8 Chloride 105 Carbon Dioxide 31 H BUN 18 H Creatinine 0.85 AST 29 ALT < 6 25-OH Vitamin D Total 44 DEXA 10/2023 FINDINGS: LEFT FEMUR, NECK: Current: BMD 0.670 g/cm2, Z-score -0.5, T-score -2.6, osteoporosis. Prior: BMD 0.696 g/cm2. Baseline: BMD 0.727 g/cm2. LEFT FEMUR, TOTAL: Current: BMD 0.791 g/cm2, Z-score 0.3, T-score -1.7, osteopenia, 6.9% increase from previous, 0.6% decrease from baseline (<5% change is not significant). Prior: BMD 0.740 g/cm2. Baseline: BMD 0.796 g/cm2. AP SPINE L1-L4: Current: BMD 0.837 g/cm2, Z-score -0.6, T-score -2.9, osteoporosis, 4.1% increase from previous, 4.8% decrease from baseline (<5% change is not significant). Prior: BMD 0.804 g/cm2. Baseline: BMD 0.879 g/cm2. Assessment & Plan Assessment & Plan (1) Osteoporosis: Comment: Fosamax 09/2018-04/2019-discontinued due to severe GERD. Prolia -09/2019 to present Code(s): M81.0 - Age-related osteoporosis without current pathological fracture Category: Medical Qualifiers: Osteoporosis type: age-related Presence of current pathological fracture: without current pathological fracture Qualified Code(s): M81.0 - Age- related osteoporosis without current pathological fracture Plan: #Osteoporosis Patient is a 74-year-old female with osteoporosis here today for follow up. Son is here for translation. Patient with mechanical fall but no fractures. Continues to get her Prolia every 6 months. We will recheck her bone density 10/2025 and follow up in November 2025 Plan - Prolia 60mg SC every 6 months, next due in 05/2025 - Labs before Prolia 05/2025: CMP, Vit D - DEXA 10/2025 - RTC 11/2025 - Labs before visit: CMP, Vit D (2) Polyarticular osteoarthritis: Code(s): M15.9 - Polyosteoarthritis, unspecified Plan: #Polyarticular OA Mainly affecting her hands and knees Right knee is swollen with warmth but no TTP and full ROM Uses topical diclofenac which son says is helpful Discussed that if the topical diclofenac is no longer efficacious they can contact the office for steroid injections (3) Encounter for monitoring denosumab therapy: Code(s): Z51.81 - Encounter for therapeutic drug level monitoring; Z79.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 Mild increased risk of infections due to RANKL on T helper cells, increased risk of hypocalcemia especially in CKD patients Keep vitamin-D at least 35 ng/mL Advised to delay non emergent dental procedures to toward the end of the 6 month cycle and if they plan to stop denosumab would need to continue antiresorptive to maintain the effects of denosumab Plan I spent 30 minutes reviewing the record and labs, taking a history, examining the patient, discussing the treatment plan, ordering diagnostic work up and documenting in the medical record Orders: Orders XR DEXA axial skeleton 10/26/25 M81.0 - Age-related osteoporosis without current pathological fracture Comprehensive Met. Panel 11/26/25 M81.0 - Age-related osteoporosis without current pathological fracture Comprehensive Met. Panel 05/28/25 M81.0 - Age-related osteoporosis without current pathological fracture Vitamin D 25-OH Total 11/26/25 M81.0 - Age-related osteoporosis without current pathological fracture Vitamin D 25-OH Total 05/28/25 M81.0 - Age-related osteoporosis without current pathological fracture Coding Level of Care Code Est Pt Level 4 (25094) Complex EM visit Add On G2211 Diagnoses Age-related osteoporosis without current pathological fracture M81.0 Osteoporosis type: age-related Presence of current pathological fracture: without current pathological fracture Polyarticular osteoarthritis M15.9 Encounter for monitoring denosumab therapy Z51.81; Z79.620
[2025-02-19 15:19] VITALS: BP 100/64; PULSE 92; O2SAT 96; BMI 21.0
== END 2025-02-19 15:48 | disposition home or self-care (01) ==
LOC: HO.RHES 15:06
PROVIDERS: PCP Registered Nurse; Visit Provider Student in an Organized Health Care Education/Training Program
DX: M81.0 Age-related osteoporosis without current pathological fracture (principal); M15.9 Polyosteoarthritis, unspecified; Z51.81 Encounter for therapeutic drug level monitoring; Z79.620 Long term (current) use of immunosuppressive biologic
CPT/HCPCS: 99214; G2211

== ENCOUNTER → 2025-02-19 15:06 | Outpatient (BNVA) | payer OTHER, SELFPAY | PROVIDERS: PCP Registered Nurse; Visit Provider Student in an Organized Health Care Education/Training Program | DX: M81.0 Age-related osteoporosis without current pathological fracture (principal); M15.9 Polyosteoarthritis, unspecified; Z51.81 Encounter for therapeutic drug level monitoring; Z79.620 Long term (current) use of immunosuppressive biologic | CPT/HCPCS: 99212 ==

== ENCOUNTER 2025-02-20 14:30 | Emergency (ER) | payer OTHER, SELFPAY ==
--- OUTSIDE RECORDS SUMMARY | 2024-10-18 09:00 | XMS_ITS ---
Author Organization [facility] Address [address] [place] [id number] Care Team Providers Care Rotary Engine Assembler Name Role Phone Dr Wendy Silva Primary Care Provider Sagrario vailable Lucille Jaramillo Unavailable [phone] Encounters Encounter Location Date Provider Diagnosis [address] [address] 10/18/2024 Lucille Jaramillo Plan Of Treatment Next Appt Details Provider Name:Lucille dickinson, 03/08/2025 12:00:00 PM, [address] [facility], [place], [address], Progress Notes * Juan TRIVEDIaDOB: 0 (74 yo F)Acc No.[id number]:10/18/2024 Progress Note Patient: Maddy EPPERSON Anat Provider: Edwin Jaramillo DPM :1950 A ge:74 Y S ex:Female Date:10/18/2024 Address:[address] [place], [place] [id number] Pcp:Dr Wendy Silva Subjective: * Chief Complaints: * * Medical History: Objective: * Vitals: Assessment: Plan: * Treatment: * Images: * The named appointment provid er may or may not be the originator of this progress note, and it is not deemed complete until electronically signed by the appointment provider. Sign off status: Pending * Provider: Ediwn Jaramillo DPM Date: 0 10/18/2024 Generated for Antonio charlton/Jim/Edilberto on: 0 02/20/2025 05:59 PM EDT
--- NOTE | ~2025-02-20 | XR_ITS ---
EXAMINATION: XR CHEST CLINICAL INFORMATION: weakness COMPARISON: November 18, 2021 TECHNIQUE: Frontal view of the chest was obtained. FINDINGS: Lung volumes are mildly decreased. Lungs are grossly clear. Heart and mediastinal structures are unremarkable. XR/XR chest 1V IMPRESSION: Low lung volumes, no acute disease. Electronically signed by: Israel Mcduffie MD 02/20/2025 05:08 PM EDT RP
--- NOTE | ~2025-02-20 | CT_ITS ---
EXAMINATION: CT HEAD WITHOUT CONTRAST CLINICAL INFORMATION: fall x3 today, unknown head strike COMPARISON: March 09, 2024 MRI TECHNIQUE: Contiguous axial imaging was performed from the skull base to vertex without intravenous administration of contrast. This CT examination was performed using dose optimization techniques as appropriate, variously including the following: *Automated exposure control *Adjustment of mA and/or kV according to patient size (this includes techniques or standardized protocols for targeted exams where dose is matched to indication/reason for exam; i.e. extremities or head) *Use of iterative reconstruction technique DLP: 699 mGY*cm FINDINGS: There is no acute ischemic change. Periventricular white matter hypodensities are present in pattern similar to changes present on MRI. There is no intracranial hemorrhage. There is no mass-effect or midline shift. There is mild generalized atrophy. Basal cisterns and ventricles are within normal limits for age/cerebral volume. Orbits are symmetrical and unremarkable. Paranasal sinuses and mastoid air cells are pneumatized. There are no bony abnormalities aside from degenerative changes in the bilateral temporal mandibular joints.. CT/CT head/brain wo IV con IMPRESSION: No acute intracranial abnormality. Changes from chronic small vessel disease. 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 Electronically signed by: Israel Mcduffie MD 02/20/2025 05:03 PM EDT
--- NOTE | ~2025-02-20 | CT_ITS ---
EXAMINATION: CT CERVICAL SPINE WITHOUT CONTRAST CLINICAL INFORMATION: fall x3 today, unknown head strike COMPARISON: X-ray on October 30, 2018 TECHNIQUE: Axial imaging was performed from the base of the skull through T2 without IV contrast. Coronal and sagittal reformatted images were generated from the original axial data set. ALARA: The examination used one or more of the following radiation dose reduction techniques: Automated exposure control, iterative reconstruction, and/or adjustment of mA and/or KV. DLP: 699 mGY*cm FINDINGS: Motion mildly degrades the images. There are degenerative changes with mild disc space narrowing between C3-4 and C6-7, most advanced at C5-6. Facets also demonstrate small marginal osteophytes and joint space narrowing through those levels. There is no prevertebral soft tissue swelling. No fracture lines are evident. CT/CT cervical spine wo IV con IMPRESSION: No acute fracture. Multilevel degenerative disc disease and facet osteoarthritis. Electronically signed by: Israel Mcduffie MD 02/20/2025 05:07 PM EDT
[2025-02-20 14:44] VITALS: BP 144/65; PULSE 90; RESP 18; TEMP 36.6; O2SAT 96; BMI 20.8
--- NOTE | 2025-02-20 14:44 | ED.GENADULT ---
HPI - General Adult General Chief complaint: Weakness Stated complaint: weakness in legs, fall x3 Time Seen by Provider: 02/20/25 16:17 Source: patient, family, RN notes reviewed and old records reviewed Mode of arrival: ambulatory Limitations: no limitations History of Present Illness ED Provider: Cosme HPI narrative: 74-year-old female with a past medical history significant for Parkinson's dementia, GERD, hyperlipidemia, arthritis, hypertension presents for evaluation of weakness any increased tremors. Per the patient's sons, the patient has had increasing weakness for a couple of weeks now. She suffered 3 falls today that were unwitnessed. The building pressure washer called the son to tell him about the falls. The patient denies any pain, head strike. Per the patient's sons, she will never complain in all ways states that everything is fine she and she wants to go home. She has a small abrasion to her left knee she has not had any coughing, vomiting, she has not complained of any abdominal pain. Per the patient's son, she had increasing confusion and hallucinations over the last few weeks as well. The patient currently lives alone in elderly housing which is not assisted living. She has visiting labor training manager but family is concerned that she may require additional care Related Data Home Medications ?Medication ?Instructions ?Recorded ?Confirmed escitalopram oxalate 10 mg tablet 10 mg PO DAILY 05/05/22 02/21/25 acetaminophen 500 mg tablet 500 mg PO QID PRN Pain (Scale 05/17/22 02/20/25 Score 1-3) hydroxyzine HCl 10 mg tablet 10 mg PO BEDTIME 11/29/22 02/21/25 trazodone 50 mg tablet 50 mg PO BEDTIME PRN Insomnia 01/27/24 02/21/25 metformin 500 mg tablet 1,000 mg PO BID 02/21/25 02/21/25 Previous Rx's ?Medication ?Instructions ?Recorded blood pressure monitor #1 ea 05/05/21 carbidopa 25 mg-levodopa 100 mg 1 tab PO TID 30 days #90 tabs 02/09/22 tablet blood sugar diagnostic (FreeStyle #50 ea 12/17/22 Test strips) ezetimibe 10 mg tablet 10 mg PO DAILY 90 days #90 tabs 08/30/23 Allergies Allergy/AdvReac Type Severity Reaction Status Date / Time amlodipine Allergy Intermediate leg edema Verified 02/20/25 14:46 aspirin (ASPIRIN) Allergy Intermediate GERD Verified 02/20/25 14:46 gabapentin Allergy Intermediate rash Verified 02/20/25 14:46 lisinopril Allergy Intermediate angioedema Verified 02/20/25 14:46 naproxen (From NAPROSYN) Allergy Intermediate RASH/DIZZY Verified 02/20/25 14:46 omeprazole Allergy Intermediate tremors Verified 02/20/25 14:46 canagliflozin (Invokana) AdvReac Intermediate rash Verified 02/20/25 14:46 glipizide AdvReac Intermediate hypoglycemi Verified 02/20/25 14:46 a amantadine AdvReac Intermediate Hallucinati Uncoded 02/20/25 14:46 ons Review of Systems Constitutional: Constitutional: Denies body ache(s), Denies chills, Denies fever(s), Reports frequent falls, Denies headache(s) and Reports weakness Eyes: Eyes: Denies blurry vision ENT: Denies vertigo, Denies dizziness and Denies headache(s) Cardiovascular: Cardiovascular: Denies chest pain and Denies dyspnea on exertion Respiratory: Respiratory: Denies cough and Denies dyspnea on exertion Gastrointestinal: Gastrointestinal: Denies abdominal pain, Denies nausea and Denies vomiting Musculoskeletal: Musculoskeletal: Denies back pain Integumentary/Breasts: Skin/Breast: Reports wounds (small wound to left sanchez) Neurologic: Denies Abnormal speech present, Denies vertigo, Denies dizziness, Reports frequent falls, Denies headache(s) and Reports weakness Psychiatric: Psychiatric: Denies anxiety and Denies suicidal ideation [facility] Past Medical History Medical History Abdominal cramping Cataracts, bilateral Constipation Depression Diabetes mellitus Essential hypertension GERD (gastroesophageal reflux disease) Leg edema Osteoarthritis Osteoporosis Parkinsons Pure hypercholesterolemia Tremors of nervous system Vaginal pruritus Surgical History H/O colonoscopy Family History Family History Father Leukemia Mother Chronic mental illness Alzheimers disease Sister Breast cancer Sister Leukemia Sister Esophageal cancer Maternal Grandmother Stomach cancer Family/Other Chronic mental illness Maternal Grandfather Myocardial infarction Sister Alzheimers disease Social History Social History Household Members: None Housing: Apartment Alcohol intake: never Patient Tobacco Use Status: Never used Tobacco Smoked in Last 30 Days: No e-Cigarette/Vaping Use: Never Used Second Hand Smoke Exposure: No Use of substances other than those prescribed or required for medical reasons: No Advance Directives: Yes Advance Directives on File: Yes Advance Directives Date on File: 09/23/20 Do you have a plan to hurt others: No Plan service: No Current occupational status: disabled Physical Exam ED Vital Signs: Vital Signs - 24 hr 02/20/25 14:44 02/20/25 16:27 02/20/25 17:11 Temperature 97.9 F 98.2 F 97.6 F Pulse Rate 90 84 89 Respiratory Rate 18 16 89 H Blood Pressure 144/65 H 144/92 H 144/85 H Pulse Oximetry 96 96 96 Oxygen Delivery Method Room Air Room Air Room Air 02/20/25 20:00 02/20/25 22:00 02/20/25 23:01 Temperature 97.9 F 98.2 F Pulse Rate 77 81 85 Respiratory Rate 22 H 18 18 Blood Pressure 109/62 116/68 131/72 Pulse Oximetry 96 97 95 Oxygen Delivery Method Room Air Room Air Room Air 02/21/25 06:00 02/21/25 06:43 Temperature 98.0 F Pulse Rate 86 Respiratory Rate 18 Blood Pressure 94/64 118/68 Pulse Oximetry 92 Oxygen Delivery Method Room Air BMI result Body Mass Index 20.8 Const General: comfortable, no acute distress, alert and awake Orientation/consciousness: patient oriented x3 HENMT Head: Yes normocephalic and Yes atraumatic Eyes Eyelids: Yes eyelids normal Conjunctivae: conjunctivae normal Sclerae: sclerae normal Corneas: corneas normal Pupils: Equal, round and reactive pupils present EOM: EOMs intact bilaterally Neck Neck: Yes full ROM Resp Effort & Inspection: normal respiratory effort, able to speak in complete sentences and not labored GI Inspection: No distended Palpation (GI): Soft to palpation, not firm, nontender, no guarding and not rigid Skin General skin exam: elasticity normal Neuro Other: the patient has fairly significant resting tremors involving all extremities General: patient oriented x3 Cranial nerves: Yes CN's II-XII intact bilaterally, Yes Equal, round and reactive pupils present and Yes Bilaterally intact EOM present Cognition (Neuro): normal cognition Speech: No Abnormal speech present Extrem Other: Moving all extremities well without any obvious deformities Course Course Course Narrative: This is a Rapid Medical Examination (RME) performed by Stephenie Hutchinson PA-C in triage. Full HPI, ROS, assessment and treatment plan per primary provider in the Main ED. Hx: 74 yo F hx dementia, parkinsons, HTN, DM, GERD here w/ increased generalized weakness x weeks. following with PCP for this. progressively losing her balance. pt lives alone, her sons recieved a call from the building pressure washer stating that patient was reporting 3 falls today d/t unstable gait. unknown HS. no AC. Plan: labs, imaging Reevaluation(s) Reevaluation #1: patient's workup largely unremarkable, she is medically cleared. Given her multiple falls today she will be a physician observation status for case management and physical therapy. Time: 20:00 Reevaluation #2: 02/21/2025 0836 Enedina Sorto PA-C ---> Observation continues. Case management continues to follow. 02/21/2025 1133 Enedina Sorto PA-C ---> Observation care revealed the the patient does not meet medical necessity for hospitalization. Final disposition of discharge to [facility] discussed with the patient. Patient completed observation care at 1134, total time spent in observation care was 15 hours and 59 minutes. Medical Decision Making Medical Decision Making MDM Narrative: 74-year-old female presents for evaluation of increasing weakness and multiple falls today. Per the patient's family she seemed to be deteriorating over the last few weeks, they are concerned that she still lives alone. The patient offers no complaints, she has a small abrasion to her left knee but has good range of motion with flexion-extension and no tenderness to the left knee. I have a low suspicion for fracture. Given the increasing weakness we will get a CT scan of the brain, basic labs, chest x-ray and a urinalysis to evaluate for some degree of metabolic encephalopathy but I suspect this is related to worsening Parkinson's dementia. She has no respiratory or GI symptoms. she has no focal deficits, despite the family reporting increased confusion she is alert and oriented and answers questions appropriately. per the son, the patient was requesting that the son remove the children that are playing in my bed yesterday despite there being nobody else in the room. Differential Diagnosis Differential Diagnoses: The differential diagnosis associated with the presentation includes Parkinson's dementia Failure to thrive CVA Intracranial hemorrhage Metabolic encephalopathy UTI Delirium Admission/Observation Consideration of admission/observation: Escalation of care including admission/observation considered Lab Data MDM Lab Attestation statement: I reviewed the patient's lab results. no leukocytosis or anemia. Normal platelet count. No significant electrolyte abnormalities warranting intervention. The patient's BUN is elevated to 35 with a normal creatinine 0.82. This may be related to decreased oral intake. There was no evidence of GI bleeding. Denies black or bloody stool. Patient's glucose is elevated to 236, no evidence of DKA, her anion gap is 12 and carbon dioxide level is 25 02/20/25 14:58 02/20/25 14:58 Labs: Lab Results 02/20/25 02/20/25 02/21/25 Range/Units 14:58 17:10 09:22 WBC 7.7 (4.8-10.8) X10*3/uL RBC 4.55 (4.20-5.50) X10*6/uL Hgb 12.8 (12.0-16.0) g/dl Hct 38.7 (37.0-47.0) % MCV 85.1 (80.0-98.0) fL MCH 28.1 (27.0-33.0) pg MCHC 33.1 (31.0-35.0) g/dl RDW 13.0 (11.0-16.0) % Plt Count 185 (160-400) X10*3/uL MPV 12.0 (9.4-12.3) fL Immature Gran % (Auto) 0.1 (0.0-0.4) % Neut % (Auto) 73.1 H (45-73) % Lymph % (Auto) 16.9 L (20-40) % [place] % (Auto) 7.2 (2-11) % Eos % (Auto) 2.2 (0-4) % Baso % (Auto) 0.5 (0-2) % Lymph # (Auto) 1.3 (1.2-4.9) X10*3/uL [place] # (Auto) 0.6 (0.1-1.2) X10*3/uL Eos # (Auto) 0.2 (0.0-0.4) X10*3/uL Baso # (Auto) 0.0 (0.0-0.2) X10*3/uL Abs Immat Gran (auto) 0.01 (0.00-0.03) X10*3/uL Absolute Neuts (auto) 5.6 (2.0-8.3) x10*3/uL Absolute Nucleated RBC 0.000 (0.0-0.012) X10*3/uL Nucleated RBC % (auto) 0.0 (0.0-0.2) /100WBC Sodium 139 (135-145) mmol/L Potassium 4.3 (3.3-5.1) mmol/L Chloride 106 (96-108) mmol/L Carbon Dioxide 25 (22-29) mmol/L Anion Gap 12 (12-20) BUN 35 H (9-16) mg/dL Creatinine 0.82 (0.5-1.4) mg/dL Estim Creat Clear Calc 46.8 Estimated GFR > 60 Random Glucose 236 H (60-115) mg/dL Calcium 9.6 (8.4-10.2) mg/dL Magnesium 2.1 (1.6-2.6) mg/dL Total Bilirubin 0.3 (0.0-1.0) mg/dL AST 27 (5-31) U/L ALT 19 (0-31) U/L Alkaline Phosphatase 52 (39-117) U/L Troponin I High Sens < 2.7 (<3.5-17.0) ng/L Total Protein 7.8 (6.5-8.0) g/dL Albumin 4.5 (3.5-5.0) g/dL Urine Color Yellow Urine Appearance Clear Urine pH 5.5 (5.0-9.0) Ur Specific [place] 1.020 (1.005-1.025) Urine Protein Trace (Neg-Trace) mg/dL Urine Glucose (UA) 500 H (Negative) mg/dL Urine Ketones Negative (Negative) mg/dL Urine Blood Negative (Negative) Urine Nitrite Negative (Negative) Ur Leukocyte Esterase Trace H (Negative) Urine RBC 0-2 (0-2) /HPF Urine WBC 0-5 (0-5) /HPF Ur Squamous Epith Cells 0-2 (0-2) /HPF Urine Bacteria None Seen (None Seen) Hyaline Casts 0-2 (0-2) /LPF Influenza Type A (PCR) NEGATIVE (Negative) Influenza Type B (PCR) NEGATIVE (Negative) RSV RNA Qual (PCR) NEGATIVE (Negative) SARS-CoV-2 RNA (RT-PCR) NEGATIVE (Negative) Independent Interpretation I performed an independent interpretation of an: EKG Interpretation: EKG with artifact due to resting tremors but otherwise normal sinus rhythm without any obvious ST segment elevations or depressions Radiology Impression Discussion of test interpretation with radiology: I have reviewed the radiologist's reading. Radiologist Impression: FINDINGS: There is no acute ischemic change. Periventricular white matter hypodensities are present in pattern similar to changes present on MRI. There is no intracranial hemorrhage. There is no mass-effect or midline shift. There is mild generalized atrophy. Basal cisterns and ventricles are within normal limits for age/cerebral volume. Orbits are symmetrical and unremarkable. Paranasal sinuses and mastoid air cells are pneumatized. There are no bony abnormalities aside from degenerative changes in the bilateral temporal mandibular joints.. CT/CT head/brain wo IV con IMPRESSION: No acute intracranial abnormality. Changes from chronic small vessel disease. 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 Electronically signed by: Israel Mcduffie MD 02/20/2025 05:03 PM EDT RP FINDINGS: Motion mildly degrades the images. There are degenerative changes with mild disc space narrowing between C3-4 and C6-7, most advanced at C5-6. Facets also demonstrate small marginal osteophytes and joint space narrowing through those levels. There is no prevertebral soft tissue swelling. No fracture lines are evident. CT/CT cervical spine wo IV con IMPRESSION: No acute fracture. Multilevel degenerative disc disease and facet osteoarthritis. Electronically signed by: Israel Mcduffie MD 02/20/2025 05:07 PM EDT RP Discharge Plan Discharge Clinical Impression: Dementia due to Parkinson's disease, Weakness Patient Disposition: Xfer SNF Transfer Details: [facility] Instructions: Dementia (ED) Prescriptions: No Action carbidopa-levodopa 25-100 mg tablet 1 tab PO TID 30 Days Qty: 90 1RF (DME) FreeStyle Test Strip See Rx Instructions .ROUTE .MEDSUPPLY Qty: 50 11RF Rx Instructions: Use 1 test strip once a day ezetimibe 10 mg tablet 10 mg PO DAILY 90 Days Qty: 90 3RF metformin 500 mg tablet 1,000 mg PO BID (DME) blood pressure monitor Kit See Rx Instructions .Route Qty: 1 0RF Rx Instructions: As directed acetaminophen 500 mg tablet 500 mg PO QID PRN (Reason: Pain (Scale Score 1-3)) escitalopram oxalate 10 mg tablet 10 mg PO DAILY hydroxyzine HCl 10 mg tablet 10 mg PO BEDTIME trazodone 50 mg tablet 50 mg PO BEDTIME PRN (Reason: Insomnia) Referrals: [facility] [Outside] - 10 days Referral Note: [phone] Print Language: Danish
--- NOTE | 2025-02-20 14:48 | ECG_ITS ---
Test Reason : weakness Blood Pressure : */* mmHG Vent. Rate : 85 BPM Atrial Rate : 85 BPM P-R Int : 166 ms QRS Dur : 60 ms QT Int : 352 ms P-R-T Axes : 37 -12 12 degrees QTcB Int : 418 ms Poor data quality Normal sinus rhythm Possible Left atrial enlargement Cannot rule out Anterior infarct (cited on or before 18-Nov-2021) Abnormal ECG When compared with ECG of 18-Nov-2021 09:31, No significant change was found Referred By: Germania Hutchinson Electronically Signed By: Jaiden Damon
[2025-02-20 15:04] LABS: MANUAL DIFF FLAG NO
[2025-02-20 15:06] LABS: Hematocrit 38.7 % (37.0-47.0); Hemoglobin 12.8 g/dl (12.0-16.0); Imm Gran Abs Auto 0.01 X10*3/uL (0.00-0.03); Imm Gran Pct Auto 0.1 % (0.0-0.4); Lymphocytes Absolute Auto 1.3 X10*3/uL (1.2-4.9); Mean Corpuscular HGB Conc 33.1 g/dl (31.0-35.0); Mean Corpuscular Hemoglobin 28.1 pg (27.0-33.0); Mean Corpuscular Volume 85.1 fL (80.0-98.0); NRBC Abs Auto 0.000 X10*3/uL (0.0-0.012); NRBC Pct Auto 0.0 /100WBC (0.0-0.2); Platelet Count 185 X10*3/uL (160-400); Red Blood Count 4.55 X10*6/uL (4.20-5.50); White Blood Count 7.7 X10*3/uL (4.8-10.8)
[2025-02-20 15:20] LABS: Alanine Aminotransferase 19 U/L (0-31); Albumin Level 4.5 g/dL (3.5-5.0); Alkaline Phosphatase 52 U/L (39-117); Anion Gap 12 (12-20); Aspartate Amino Transferase 27 U/L (5-31); Blood Urea Nitrogen 35 mg/dL (9-16); Calcium 9.6 mg/dL (8.4-10.2); Carbon Dioxide 25 mmol/L (22-29); Chloride 106 mmol/L (96-108); Creatinine Clr Calc Pharmacy 46.8; Estimated Glomerular Filt Rate > 60; Magnesium 2.1 mg/dL (1.6-2.6); Potassium 4.3 mmol/L (3.3-5.1); Sodium 139 mmol/L (135-145); Total Protein 7.8 g/dL (6.5-8.0)
[2025-02-20 15:28] LABS: Troponin-I High Sensitivity < 2.7 ng/L (<3.5-17.0)
[2025-02-20 16:27] VITALS: BP 144/92; PULSE 84; RESP 16; TEMP 36.8; O2SAT 96
--- NOTE | 2025-02-20 16:30 | PC.NURSE ---
Patient reports to ED after having multiple falls at home. PMH parkinsons dementia Patient denies pain, fevers, cough, n/v, +CMS +ROM Sons at bedside helping translate Sons report patient having increased trouble getting around, increased weakness Patient able to stand and pivot to bed Provider in to see patient VSS and up to date Plan of care on going
[2025-02-20 17:11] VITALS: BP 144/85; PULSE 89; RESP 89; TEMP 36.4; O2SAT 96
[2025-02-20 17:17] LABS: Appearance Urine Clear; Glucose Urine UA 500 mg/dL (Negative); PH 5.5 (5.0-9.0); Specific Gravity - Urine 1.020 (1.005-1.025); UMIC TRIGGER UACC YES
--- OUTSIDE RECORDS SUMMARY | 2025-02-20 17:59 | XMS_ITS | Patient Health Record ---
Author Organization [facility] Address [address] [place] [address] Care Team Providers Care Feed Preparation Operator Name Role Phone Praful Luther Jr Reason For Referral No Information Plan Of Treatment No Information
--- OUTSIDE RECORDS SUMMARY | 2025-02-20 17:59 | XMS_ITS | Patient Health Record ---
Author Organization [facility] Address [address] [place] [address] Care Team Providers Care Pet Stylist Name Role Phone Dr Wendy Silva Primary Care Provider Lucille Esteves Unavailable [phone] Allergies Allergen (clinical drug ingredient) Drug/Non Drug [...] Duration) Notes Start Date End Date Status Hydrocortisone 1 % 1 application Externally Once a day Active Famotidine 40 MG 1 tablet at bedtime Orally Once a day; Duration: 30 day(s) Active Carbidopa-Levodopa 25-100 MG 1 tablet as needed Orally Two times a Week; Duration: 30 day(s) Active Acetaminophen 8 Hour 650 MG 2 tablets as needed Orally every 8 hrs Active Escitalopram Oxalate 5 MG 1 tablet Orall y Once a day; Duration: 30 day(s) Active Extra Depth Orthopedic Shoes (1 Pair) with Customized Heat Molded Multidensity Innersoles (3 Pair) as directed Dx: NIDDM/Polyneuropathy (E11.42), Hammertoe Foot Deformity (M20.41,M20.42), Preulcerative Skin Lesion(s) (L85.1 10/06/2021 Not-Taking Prolia 60 MG/ML as directed Subcutaneous Active Sucralfate 1 GM/10ML 10 ml on an empty stomach Orally Twice a day; Duration: 30 day(s) Not-Taking metFORMIN HCl 500 MG 1 tablet with a christine l Orally Once a day; Duration: 30 day(s) Active Aspirin Not-Taking Ezetimibe 10 MG 1 tablet Orally Once a day; Duration: 30 day(s) Active Cetirizine HCl 10 MG 1 tablet Orally Onc e a day; Duration: 30 day(s) Not-Taking Fish Oil 500 MG 1 capsule Orally Twi ce a day; Duration: 30 day(s) Active Metoclopramide HCl 5 MG as directed Oral ly Twice a day Not-Taking Theratears 0.25 % as directed Ophthalmic Not-Taking Multivitamin - 1 tablet Orally Once a day; Duration: 30 day(s) Active Calcium Carb-Cholecalciferol 500-600 MG-UNIT 1 tablet with a meal Orally Once a day; Duration: 30 day(s) Active Immunizations Vaccine Route Administration Date Status Comme nts Influenza Unknown 03/21/2023 Administered Influenza Unknown 02/19/2024 Administered Social History Tobacco Use: Social History [...] Are you an other tobacco user? No AUDIT-C (Standard) Question Answer Notes Did you have a drink containing alcohol in the p ast year? No Points 0 Interpretation Negative Problems Problem Type SNOMED Code ICD Code Onset Dates Problem Status W/U Status Risk Notes Problem Acquired hammer toe of left foot ([id number] ) Hammer toe of left foot (M20.42) Active confirmed Problem Polyneuropathy due to type 2 diabetes mellitus (453037489) Type 2 diabetes mellitus with polyneuropathy (E11.42) Active confirmed Vital Signs Blood pressure diastolic 75 mm Hg 12/25/2024 Height 5ft2in in 12/25/2024 Blood pressure systolic 130 mm Hg 12/25/2024 Weight 117 lbs 12/25/2024 BMI 21.4 kg/m2 12/25/2024 Encounters Encounter Location Date Provider Diagnosis [address] [address] 03/16/2024 Lucille Jaramillo Type 2 diabetes mellitus with polyneuropathy E11.42 and Tinea unguium B35.[address] [address] 06/06/2024 Lucille Jaramillo Type 2 diabetes mellitus with polyneuropathy E11.42 and Tinea unguium B35.[address] [address] 08/15/2024 Lucille Jaramillo Type 2 diabetes mellitus with polyneuropathy E11.42 and Tinea unguium B35.[address] [address] 12/25/2024 Lucille Jaramillo Type 2 diabetes mellitus with polyneuropathy E11.42 and Tinea unguium B35.1 [facility] [address] [address] 10/18/2024 Lucille Jaramillo Assessments Encounter Date Diagnosis (ICD Code) Assessment Notes Treatment Notes Treatment Clinical Notes Section Notes 03/16/2024 Type 2 diabetes mellitus with polyneuropathy (ICD-10 - E11.42) 06/06/2024 Type 2 diabetes mellitus with polyneuropathy (ICD-10 - E11.42) 08/15/2024 Type 2 diabetes mellitus with polyneuropathy (ICD-10 - E11.42) 12/25/2024 Type 2 diabetes mellitus with polyneuropathy (ICD-10 - E11.42) 12/25/2024 Tinea unguium (ICD-10 - B35.1) 08/15/2024 Tinea unguium (ICD-10 - B35.1) 06/06/2024 Tinea unguium (ICD-10 - B35.1) 03/16/2024 Tinea unguium (ICD-10 - B35.1) Plan Of Treatment Next Appt Details Provider Name:Lucille dickinson, 03/08/2025 12:00:00 PM, [address] [place], [address], Insurance Providers Payer Name Payer Address Payer Phone Subscriber Number Group Number Insured Name Patient Relationship to Insured Coverage Start Date Coverage End Date [facility] [employer] Claims [address] [place] [phone] [id number] Anat Trivedi Self - patient is the insured Medical (General) History Medical History History ICD Code Diabetic Parkinsons disease Chronic Kidney Disease Hypertension Arthritis Reflux ( GERD) Osteoporosis Cataracts covid-19 Pyelonephritis Depression Gastroparesis Hypercholesterolemia osteoarthritis Anxiety Back,Hip,and Knee pain Dementia Fibromyalgia Headaches/Migraines Surgical History Surgery Date(Month/Year)
[2025-02-20 20:00] VITALS: BP 109/62; PULSE 77; RESP 22; O2SAT 96
--- NOTE | 2025-02-20 21:22 | PC.NURSE ---
pt removed purewick, was ready to go home. Biology Tutor used to remind pt she is admitted and purewick must stay in place. Pt verbalized understanding.
--- NOTE | 2025-02-20 21:47 | MHC.EDTECH ---
Pt found to be wet. T/w and electroencephalograph technician Michelle did a bedding change and changed Pt into hospital gown. NEw purewick applied, middle school spanish teacher at bedside explaining use of purewick, as last purewick was found on Pts bedside table. Call loyd within reach.
[2025-02-20 22:00] VITALS: BP 116/68; PULSE 81; RESP 18; TEMP 36.6; O2SAT 97
--- NOTE | 2025-02-20 22:10 | PC.NURSE ---
Pt updated that she would be moved to another location that was more quiet.
--- NOTE | 2025-02-20 22:10 | MHC.CM.ED ---
Addendum entered by Suzy Yin 02/20/25 22:24: Need copy of HCP. Son to bring in tomorrow. Original Note: CM met with patient and son and DIL. Dillan is HCP/son [phone]. Pt has dementia, Parkinson's, GERD, HTN and DM. She has been weak and sustained 3 falls at home today. Pt lives alone in elderly housing. All information from son and DIL, as patient unable to answer questions secondary to dementia. Son tells CM that the building management has concerns about patients ability to remain living alone. Pt has falls and wanders. She has a walker and a wheelchair, however she forgets how to use them. Son tells CM that PT recommended she not use them as she cannot remember how to use the walker and it is a fall risk. Pt has daily VNA from [facility] for medication management. She had home PT, but that was completed about a month ago with [facility]. She still has OT at home. She has LAMINATION TECHNICIAN services 40.75/wk. There are no overnight hours. She has a therapist through [facility]. Family is very involved. They feel she may need LTC. They are agreeable to STR if recommended with a probable transition to LTC. Pt has [facility]. Address, insurance and PCP verified. PT is pending. Local referrals will be made for STR with possible transition to LTC. Family is in agreement. They want their mother safe. CM will follow for a safe discharge.
--- NOTE | 2025-02-20 22:17 | PC.NURSE ---
Report called to THERESA Garcia in overflow.
[2025-02-20 23:01] VITALS: BP 131/72; PULSE 85; RESP 18; TEMP 36.8; O2SAT 95
[2025-02-21 06:00] VITALS: BP 94/64; PULSE 86; RESP 18; TEMP 36.7; O2SAT 92
[2025-02-21 06:43] VITALS: BP 118/68
--- NOTE | 2025-02-21 10:24 | PHA.MEDREC ---
Pharmacy Consult ? Medication Reconciliation Pharmacy has completed the medication reconciliation. Spoke to son and daughter in law at bedside to confirm medication list. Per son, patient takes 1 whole tablet of trazodone at bedtime and she is still taking hydroxyzine at bedtime for sleep, and no longer takes rosuvastatin, trajenta nor mounjaro. Last dose of medication was yesterday morning.
--- NOTE | 2025-02-21 10:28 | MHC.CM.ED ---
Patient remains in ER overflow. Physical therapy eval completed. Short term rehab is recommended. [facility] is able to offer a bed. [facility] is still reviewing. Met with patient, son Dillan, olaf Colón and daughter in law Sparkle, in regards to discharge planning. Patient and family accept bed at [facility]. Facility made aware and asked to obtain insurance auth. Copy of HCP obtained from [facility]. Continue to monitor for d/c needs.
[2025-02-21 10:38] LABS: Resp Syncy Virus RNA Qual PCR NEGATIVE (Negative); SARS COV2 PCR INHOUSE NEGATIVE (Negative)
--- NOTE | 2025-02-21 11:39 | MHC.CM.ED ---
[facility] has obtained insurance auth. Patient can leave at 130pm. Sumeet SHANNON booked. Med nec with chart. Patient, family, Katie CARDENAS and Enedina NANCE aware. Continue to monitor for d/c needs.
[2025-02-21 14:04] VITALS: BP 118/68; PULSE 86; RESP 18; TEMP 36.7; O2SAT 92
== END 2025-02-21 13:45 | disposition skilled nursing facility (03) ==
PROVIDERS: Physician Assistant Medical; Emergency Provider Emergency Medicine Emergency Medical Services; PCP Registered Nurse
DX: G20.A1 Parkinson's disease without dyskinesia, without mention of fluctuations (principal); F02.80 Dementia in other diseases classified elsewhere, unspecified severity, without behavioral disturbance, psychotic disturbance, mood disturbance, and anxiety; I10 Essential (primary) hypertension; S80.212A Abrasion, left knee, initial encounter; W19.XXXA Unspecified fall, initial encounter; Z91.81 History of falling; Y93.89 Activity, other specified; Y92.098 Other place in other non-institutional residence as the place of occurrence of the external cause; Y99.8 Other external cause status
CPT/HCPCS: 36415; 70450; 71045; 72125; 80053; 81001; 83735; 84484; 85025; 87637; 93005; 97162; 99285

== ENCOUNTER → 2025-02-20 14:45 | Outpatient (BNV) | payer OTHER, SELFPAY | PROVIDERS: Emergency Provider Emergency Medicine Emergency Medical Services; PCP Registered Nurse; Visit Provider Radiology Diagnostic Radiology | DX: M50.322 Other cervical disc degeneration at C5-C6 level (principal); S09.90XA Unspecified injury of head, initial encounter; R53.1 Weakness | CPT/HCPCS: 70450; 71045; 72125 ==

== ENCOUNTER → 2025-02-20 14:48 | Outpatient (BNV) | payer OTHER, SELFPAY | PROVIDERS: Emergency Provider Emergency Medicine Emergency Medical Services; PCP Registered Nurse; Visit Provider Internal Medicine Cardiovascular Disease | DX: R94.31 Abnormal electrocardiogram [ECG] [EKG] (principal); R53.1 Weakness | CPT/HCPCS: 93010 ==